=== PATIENT | female | born 1930 | race Caucasian/White ===

== ENCOUNTER 2017-07-21 11:18 | Observation (INO) | payer MEDICARE ==
[~2017-07-21] VITALS: Ht 154.9 cm; Wt 60.0 kg
[~2017-07-21 11:18] MED LIST: ARIC5TAB PO; ATEN50TA PO; BACL10TA PO; LACT10SO47 PO; LISI-515 PO; LOVA20TA PO; NIFE90TA2 PO; TRAM-492 PO
[2017-07-21] MEDS ORDERED: IOHEXOL 350 MG/ML 10 ML VIAL (for RAD DIAG) IVCONTRAST ONE (11:19)
[2017-07-21 11:20] VITALS: BP 140/66; PULSE 77; RESP 18; TEMP 102; O2SAT 94
[2017-07-21] MEDS ORDERED: SODIUM CHLOR 0.9% 1000 ML INJ 1,000 ML IV ONE (11:39)
[2017-07-21] MEDS ORDERED: ACETAMINOPHEN 325 MG TAB PO ONE (11:45)
[2017-07-21] MEDS ORDERED: VITA150T PO (11:57)
[2017-07-21] MEDS ORDERED: TRAZ50TA12 PO (11:57)
[2017-07-21] MEDS ORDERED: DONE5TAB7 PO (11:57)
[2017-07-21] MEDS ORDERED: CALC1TAB PO (11:57)
[2017-07-21] MEDS ORDERED: PRIM50TA5 PO (11:57)
[2017-07-21] MEDS ORDERED: PARO10TA2 PO (11:57)
[2017-07-21] MEDS ORDERED: NIFE30TA61 PO (11:57)
[2017-07-21] MEDS ORDERED: AMOX500C PO (11:57)
[2017-07-21] MEDS ORDERED: CO Q50CA PO (11:57)
[2017-07-21] MEDS ORDERED: OMEP20TA93 PO (11:57)
--- NOTE | 2017-07-21 12:19 | PD ---
HPI Chief Complaint: Fever Time Seen by Provider: 11:31 Travel History International Travel<30 days: No Contact w/Intl Traveler<30days: No Traveled to known affect area: No History of Present Illness HPI 87-year-old female that presents to the ED for evaluation of weakness to her legs. Per patient on Tuesday of this week she had a dental procedure. She states that she had a oral surgeon do an extraction of her tooth. Per patient she was told that she could have an infection. She was given amoxicillin to take before the surgery but she has very any pills left. Per patient she was doing fine after the surgery except that today she developed weakness to her legs and she is barely able to ambulate even with her walker which she normally uses. She has a history of UTIs in the past and states that the last and she had a UTI she had the same symptoms. She feels like he might be related to that. She also states having some chills and sweats as well as she was found to have a fever in triage. She denies any chest pain or shortness of breath. No falls or injuries. No leg pain or arm pain. No abdominal pain. No diarrhea or bowel movement changes. She does have allergies to NSAIDs. She states having some pain in her right ear that comes and goes. She denies any more swelling than usual or her face. She has not been able to contact her or her surgeon told her was going on but she does not know if this is related to the to surgery or to the possible UTI. She has no polyuria or dysuria. She has not taken anything for this patient she has not seen anybody for this. Pain is mild to the right face. PFSH Past Medical History Arthritis: Yes (BENJAMIN. shoulder) Autoimmune Disease: No Blood Disorders: No Cancer: Yes Cardiovascular Problems: Yes High Cholesterol: Yes Diabetes: Yes (PRE-DIABETIC ) Patient Takes Glucophage: No Diminished Hearing: No Endocrine: Yes Gastrointestinal Disorders: No GERD: Yes Genitourinary: No Hypertension: Yes Musculoskeletal: Yes Neurologic: Yes (Tremors) Psychiatric: No Reproductive: No Respiratory: No Radiation Therapy: No Ulcer: Yes Tetanus Vaccination: Unknown Menopausal: Yes : 2 Para: 2 Past Surgical History Gynecologic Surgery: Yes (Hysterectomy 1967) Hysterectomy: Yes (TOTAL) Other Surgery: Yes Social History Alcohol Use: No Tobacco Use: No Substance Use: No Allergies-Medications (Allergen,Severity, Reaction): Coded Allergies: diclofenac (Unverified Allergy, Mild, 07/21/17) RENAL INSUFICENCY etodolac (Unverified Allergy, Mild, 07/21/17) RENAL INSUFICENCY flurbiprofen (Unverified Allergy, Mild, 07/21/17) RENAL INSUFICENCY ibuprofen (Unverified Allergy, Mild, 07/21/17) RENAL INSUFICENCY indomethacin (Unverified Allergy, Mild, 07/21/17) RENAL INSUFICENCY ketoprofen (Unverified Allergy, Mild, 07/21/17) RENAL INSUFICENCY ketorolac (Unverified Allergy, Mild, 07/21/17) RENAL INSUFICENCY naproxen (Unverified Allergy, Mild, 07/21/17) RENAL INSUFICENCY oxaprozin (Unverified Allergy, Mild, 07/21/17) RENAL INSUFICENCY Reported Meds & Prescriptions Reported Meds & Active Scripts Active Reported Amoxicillin 500 Mg Cap 500 Mg PO DIRECTED PRN Omeprazole 20 Mg Tab 20 Mg PO DAILY Trazodone (Trazodone HCl) 50 Mg Tab 25 Mg PO HS Paroxetine (Paroxetine HCl) 10 Mg Tab 10 Mg PO DAILY Primidone 50 Mg Tab 50 Mg PO BID Donepezil 5 Mg Tab 5 Mg PO HS Nifedipine ER 24 HR (Nifedipine) 30 Mg Tab 30 Mg PO DAILY Co Q-10 (Coenzyme Q10 (Ubidecarenone)) 50 Mg-5 Unit Cap Super B Complex (Vitamin B Complex Vit C No.4) 150 Mg Tablet Calcium Citrate Petite/ (Calcium Citrate-Vitamin D) 200-250 Mg-Unit Tab 1 Tab PO BID Tramadol Hydrochloride (Tramadol HCl) 50 Mg Tab 50 Ml PO Q6HR Nifedipine ER (Nifedipine) 90 Mg Tab 40 Mg PO BID Lovastatin 20 Mg Tab 20 Mg PO DAILY Lisinopril 20 Mg Tab 20 Mg PO BID Enulose Liq (Lactulose (Encephalopathy) Liq) 10 Gm/15 Ml Soln 30 Ml PO DAILY PRN Baclofen 10 Mg Tab 10 Mg PO HS PRN Atenolol 50 Mg Tab 50 Mg PO DAILY Review of Systems Except as stated in HPI: all other systems reviewed are Neg Physical Exam Narrative GENERAL: SKIN: Warm and dry. HEAD: Atraumatic. Normocephalic. EYES: Pupils equal and round. No scleral icterus. No injection or drainage. ENT: No nasal bleeding or discharge. Mucous membranes pink and moist. Tongue is midline. No uvula deviation. Dental: has surgical scar in right lower 2nd molar area. Some swelling, but no obvious purulence or mass. TMs are clear bilaterally with no sign of infection of perforation. Ear canal intact bilaterally. NECK: Trachea midline. No JVD. CARDIOVASCULAR: Regular rate and rhythm. No murmurs, S3, S4. RESPIRATORY: No accessory muscle use. Clear to auscultation. Breath sounds equal bilaterally. GASTROINTESTINAL: Abdomen soft, non-tender, nondistended. Hepatic and splenic margins not palpable. MUSCULOSKELETAL: Extremities without clubbing, cyanosis, or edema. No obvious deformities. Full ROM of the upper and lower extremities bilaterally. 2+ pulses bilaterally. Bilateral lower leg extremity weakness especially with flexion of leg and lifting. NEUROLOGICAL: Awake and alert. No obvious cranial nerve deficits. Motor grossly within normal limits. Five out of 5 muscle strength in the arms and legs. Normal speech. PSYCHIATRIC: Appropriate mood and affect; insight and judgment normal. Data Data Last Documented VS Vital Signs Date Time Temp Pulse Resp B/P (MAP) Pulse Ox O2 Delivery O2 Flow Rate FiO2 07/21/17 13:06 68 18 115/58 (77) 96 Room Air 07/21/17 11:20 102.0 Orders Orders Acetaminophen (Tylenol) (07/21/17 11:45) Sepsis Workup Initiated (07/21/17 ) Complete Blood Count With Diff (07/21/17 11:39) Comprehensive Metabolic Panel (07/21/17 11:39) Lactic Acid Sepsis Protocol (07/21/17 11:39) Magnesium (Mg) (07/21/17 11:39) Lipase (07/21/17 11:39) Urinalysis - C+S If Indicated (07/21/17 11:39) Influenzae A/B Antigen (07/21/17 11:39) Blood Culture (07/21/17 11:39) Chest, Single Ap (07/21/17 11:39) Ecg Monitoring (07/21/17 11:39) Iv Access Insert/Monitor (07/21/17 11:39) Oximetry (07/21/17 11:39) Sodium Chlor 0.9% 1000 Ml Inj (Ns 1000 M (07/21/17 11:39) Ct Facial Bones W Iv Contrast (07/21/17 ) Cath For Specimen (07/21/17 11:45) Iohexol 350 Inj (Omnipaque 350 Inj) (07/21/17 11:19) Piperacil-Tazo 3.375 Gm Premix (Zosyn 3. (07/21/17 14:15) Admit Order (Ed Use Only) (07/21/17 14:48) Labs Laboratory Tests Test 07/21/17 12:20 White Blood Count 13.1 TH/MM3 Red Blood Count 3.37 MIL/MM3 Hemoglobin 10.8 GM/DL Hematocrit 31.9 % Mean Corpuscular Volume 94.7 FL Mean Corpuscular Hemoglobin 32.1 PG Mean Corpuscular Hemoglobin Concent 33.9 % Red Cell Distribution Width 13.9 % Platelet Count 138 TH/MM3 Mean Platelet Volume 8.5 FL Neutrophils (%) (Auto) 92.6 % Lymphocytes (%) (Auto) 2.8 % Monocytes (%) (Auto) 4.5 % Eosinophils (%) (Auto) 0.0 % Basophils (%) (Auto) 0.1 % Neutrophils # (Auto) 12.1 TH/MM3 Lymphocytes # (Auto) 0.4 TH/MM3 Monocytes # (Auto) 0.6 TH/MM3 Eosinophils # (Auto) 0.0 TH/MM3 Basophils # (Auto) 0.0 TH/MM3 CBC Comment DIFF FINAL Differential Comment Urine Color YELLOW Urine Turbidity CLEAR Urine pH 6.0 Urine Specific [place] 1.022 Urine Protein TRACE mg/dL Urine Glucose (UA) NEG mg/dL Urine Ketones NEG mg/dL Urine Occult Blood NEG Urine Nitrite NEG Urine Bilirubin NEG Urine Urobilinogen LESS THAN 2.0 MG/DL Urine Leukocyte Esterase NEG Urine RBC 2 /hpf Urine WBC LESS THAN 1 /hpf Urine Squamous Epithelial Cells <1 /hpf Microscopic Urinalysis Comment CATH-CULT NOT IND Blood Urea Nitrogen 42 MG/DL Creatinine 1.21 MG/DL Random Glucose 217 MG/DL Total Protein 6.6 GM/DL Albumin 3.0 GM/DL Calcium Level 8.3 MG/DL Magnesium Level 2.4 MG/DL Alkaline Phosphatase 79 U/L Aspartate Amino Transf (AST/SGOT) 13 U/L Alanine Aminotransferase (ALT/SGPT) 12 U/L Total Bilirubin 0.3 MG/DL Sodium Level 135 MEQ/L Potassium Level 4.3 MEQ/L Chloride Level 102 MEQ/L Carbon Dioxide Level 25.9 MEQ/L Anion Gap 7 MEQ/L Estimat Glomerular Filtration Rate 42 ML/MIN Lactic Acid Level 1.6 mmol/L Lipase 121 U/L MDM Medical Decision Making Medical Screen Exam Complete: Yes Emergency Medical Condition: Yes Medical Record Reviewed: Yes Interpretation(s) CBC & BMP Diagram 07/21/17 12:20 Total Protein 6.6, Albumin 3.0 L, Calcium Level 8.3 L, Magnesium Level 2.4, Alkaline Phosphatase 79, Aspartate Amino Transf (AST/SGOT) 13 L, Alanine Aminotransferase (ALT/SGPT) 12, Total Bilirubin 0.3 lactic acid WNL Last Impressions Chest X-Ray 07/21/17 1139 Signed Impressions: Service Date/Time: June 12:32 - CONCLUSION: The lungs are clear. Konrad Smith MD Maxillofacial CT 07/21/17 0000 Signed Impressions: Service Date/Time: June 13:41 - CONCLUSION: Subcutaneous air involving the right cheek and right temporal region consistent with the postoperative nature of this patient. No fluid collection or inflammatory/infectious abnormality. Konrad Velazquez Jr., MD UA negative Differential Diagnosis Sepsis versus weakness versus cystitis versus UTI versus acute kidney injury versus femur versus postsurgical complication Narrative Course 87-year-old female that presents to the ED for evaluation of fever and weakness. Patient was properly examined and was found to have signs and symptoms of unclear etiology but likely secondary to infection. Labs and imaging were ordered. Patient was given Tylenol for her fever 102. She is not tachycardic at this time and she appears to be in no distress. She is however weak on the lower legs especially with flexion of the hips. She states that she 's had UTIs with same symptoms in the past symptoms concerning for the same. We 'll check urine and blood work. Patient was given 500 bolus of fluid. She will be reassessed. Labs and imaging showed leukocytosis whether was unremarkable. Un unclear cause of the infection. Patient still weak to her lower legs. Case discussed with attending Dr Pino who agrees [facility] [place] admission. patient to be admitted for obs for infection. unclear etiology. Dr Ibrahim agrees with plan. Sepsis Criteria SIRS Criteria (2 or more): Temp > 100.9 or < 96.8, WBC > 65826, < 4000 or > 10 % bands Sepsis Criteria (SIRS+source): Infect source susp/known Diagnosis Primary Impression: Generalized weakness Additional Impressions: LENA (acute kidney injury) Dental infection Admitting Information Admitting Physician Requests: Observation Isidro Casas Jul 21, 2017 12:18
[2017-07-21 12:46] LABS: AUTOMATED NEUTROPHIL # 12.1 TH/MM3 (1.8-7.7); BASOPHIL % 0.1 % (0.0-2.0); HEMATOCRIT 31.9 % (35.0-46.0); HEMOGLOBIN 10.8 GM/DL (11.6-15.3); LYMPH % 2.8 % (9.0-44.0); LYMPHOCYTE # 0.4 TH/MM3 (1.0-4.8); MEAN CELL VOLUME 94.7 FL (80.0-100.0); MEAN CORPUSCULAR HEMOGLOBIN 32.1 PG (27.0-34.0); MEAN CORPUSCULAR HGB CONC 33.9 % (32.0-36.0); MEAN PLATELET VOLUME 8.5 FL (7.0-11.0); MONO % 4.5 % (0.0-8.0); MONOCYTE # 0.6 TH/MM3 (0-0.9); NEUT % 92.6 % (16.0-70.0); PLATELET COUNT 138 TH/MM3 (150-450); RED BLOOD COUNT 3.37 MIL/MM3 (4.00-5.30); RED CELL DISTRIBUTION WIDTH 13.9 % (11.6-17.2); WHITE BLOOD COUNT 13.1 TH/MM3 (4.0-11.0)
[2017-07-21 12:49] LABS: BILIRUBIN, URINE NEG (NEG); BLOOD, URINE NEG (NEG); GLUCOSE,URINE NEG (NEG); KETONE, URINE NEG (NEG); NITRITE,URINE NEG (NEG); SQUAMOUS EPITHELIAL CELL URINE <1 /hpf (0-5); URINE COLOR YELLOW (YELLW/STRAW); URINE LEUKOCYTE ESTERASE NEG (NEG)
[2017-07-21 13:00] LABS: AST (GOT) 13 U/L (15-37); BICARBONATE 25.9 MEQ/L (21.0-32.0); BLOOD UREA NITROGEN 42 MG/DL (7-18); CALCIUM 8.3 MG/DL (8.5-10.1); CHLORIDE 102 MEQ/L (98-107); CREATININE 1.21 MG/DL (0.50-1.00); GLOMERULAR FILTRATION RATE 42 ML/MIN (>89); GLUCOSE,RANDOM 217 MG/DL (74-106); MAGNESIUM 2.4 MG/DL (1.5-2.5); SODIUM (NA) 135 MEQ/L (136-145)
[2017-07-21 13:01] LABS: ALT (GPT) 12 U/L (10-53)
[2017-07-21 13:03] LABS: ALKALINE PHOSPHATASE 79 U/L (45-117); TOTAL BILIRUBIN ADULT 0.3 MG/DL (0.2-1.0); TOTAL PROTEIN 6.6 GM/DL (6.4-8.2)
[2017-07-21 13:06] VITALS: BP 115/58; PULSE 68; RESP 18; O2SAT 96
--- NOTE | 2017-07-21 13:12 | RADRPT ---
EXAM DATE/TIME: 07/21/2017 12:32 [facility] COMPARISON: CHEST SINGLE AP, February 13, 2016, 15:55. INDICATIONS : Fever and general weakness since last night, short of breath MEDICAL HISTORY : None. SURGICAL HISTORY : bilateral knee replacements ENCOUNTER: Initial ACUITY: 1 day PAIN SCORE: 0/10 LOCATION: Bilateral chest FINDINGS: A single view of the chest demonstrates the lungs to be symmetrically aerated without evidence of mas s, infiltrate or effusion. The cardiomediastinal contours are unremarkable. Stable deformity of nazanin ateral proximal humerus.. CONCLUSION: The lungs are clear. Konrad Smith MD on July 21, 2017 at 13:10 Board Certified Radiologist. This report was verified electronically.
[2017-07-21] MEDS ORDERED: PIPERACIL-TAZO 3.375 GM PREMIX 50 ML IV ONE (14:15)
--- NOTE | 2017-07-21 14:29 | RADRPT ---
EXAM DATE/TIME: 07/21/2017 13:41 [facility] COMPARISON: No previous studies available for comparison. INDICATIONS : Generalized weakness, ,patient had right side oral surgery two days ago. IV CONTRAST: 67 cc Omnipaque 350 (iohexol) IV RADIATION DOSE: 41.13 CTDIvol (mGy) MEDICAL HISTORY : Cardiovascular disease. SURGICAL HISTORY : None. ENCOUNTER: Initial ACUITY: 2 weeks PAIN SCALE: 7/10 LOCATION: facial TECHNIQUE: Volumetric scanning of the facial bones was performed. Using automated exposure control and adjustme nt of the mA and/or kV according to patient size, radiation dose was kept as low as reasonably achiev able to obtain optimal diagnostic quality images. DICOM format image data is available electronicall y for review and comparison. FINDINGS: ORBITS: The orbital and infraorbital osseous structures are intact. The retroconal structures have a normal configuration. No radiopaque foreign bodies are seen. NASAL BONE: The nasal bone and maxillary spine are intact ZYGOMATIC ARCHES: Symmetric without evidence of fracture. SINUSES: The maxillary, ethmoid and frontal sinuses are intact. No air-fluid levels seen. NASAL CAVITY: The nasal septum is intact and midline. The lacrimal ducts are intact. SOFT TISSUES: Small volume subcutaneous air is seen involving the right cheek extending cephalad in the right tempo ral soft tissues and to a lesser degree infratemporal fossa. This consistent with a prior surgery. No fluid collection. No radiopaque foreign bodies seen. No soft-tissue swelling is seen. INTRACRANIAL: No intracranial air seen. CRIBIFORM PLATE: Grossly intact. CONCLUSION: Subcutaneous air involving the right cheek and right temporal region consistent with the postoperativ e nature of this patient. No fluid collection or inflammatory/infectious abnormality. Konrad Velazquez Jr., MD on July 21, 2017 at 14:23 Board Certified Radiologist. This report was verified electronically.
--- NOTE | 2017-07-21 15:06 | HHI.HP ---
HPI Service [facility] Hospitalists Primary Care Physician Vernon Martinez MD Admission Diagnosis Fever, generalized weakness Chief Complaint: Weakness Travel History International Travel<30 Days: No Contact w/Intl Traveler <30 Da: No Traveled to Known Affected Are: No History of Present Illness Ms. Hernández is an 87 y/o female with HTN, hyperlipidemia, diabetes, CKD, stage 3, and memory loss who was brought to the ER at [facility] [place] on 07/21/17 with increased weakness x 1 day and fever. Pt had oral surgery Tuesday and was told that she had an infected tooth that was removed. Pt was placed on Amoxicillin after that procedure and reported that overall she felt fine after the procedure and yesterday. She did not have any residual pain in her jaw. During the night last night she felt weak when she woke up to use the bathroom. She was afraid to walk to the bathroom because her legs felt too weak so her son helped her to the bathroom using her walker. She reports that she felt chilled during the night and she has tremors normally and it seemed worse than her baseline tremors. Then this morning the pt was unable to get out of bed herself due to weakness. Her son and the acute care nurse had to wheel her to the bathroom on her walker. Her son called her PCP, Dr. Martinez, who reportedly recommended that she go to the ED for further evaluation. Pt was noted to have a fever of 102 degrees at admission. She denies any nausea/vomiting, abd pain, diarrhea, rash, dysuria, urinary frequency. Review of Systems Constitutional: COMPLAINS OF: Fever, Chills, DENIES: Fatigue, Dizziness Eyes: DENIES: Vision loss Ears, nose, mouth, throat: DENIES: Hearing loss Respiratory: DENIES: Cough, Shortness of breath Cardiovascular: DENIES: Chest pain, Palpitations, Dyspnea on Exertion, Lower Extremity Edema Gastrointestinal: DENIES: Abdominal pain, Constipation, Diarrhea, Nausea, Vomiting Genitourinary: DENIES: Urinary frequency, Urgency, Dysuria Musculoskeletal: DENIES: Joint pain, Neck pain Integumentary: DENIES: Rash Neurologic: COMPLAINS OF: Localized weakness, Poor Balance, DENIES: Headache, Paresthesias, Speech Problems Psychiatric: DENIES: Depression, Hallucinations Past Family Social History Past Medical History HTN Hyperlipidemia Diabetes mellitus, with polyneuropathy Carpal tunnel syndrome RLS CKD, stage 3 Osteoarthritis Spastic hemiplegia/Tremors Major depression Memory loss Past Surgical History Total Hysterectomy Back surgery Bunionectomy Bilateral cataract surgery 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 Sinus surgery Tonsillectomy/Adenoidectomy Total knee arthroplasty, bilateral Reported Medications -Amoxicillin 500 Mg Cap 500 Mg PO DIRECTED PRN -Omeprazole 20 Mg Tab 20 Mg PO DAILY PRN -Paroxetine 10 Mg PO DAILY -Primidone 50 Mg PO BID -Donepezil 5 Mg Tab 5 Mg PO HS -Nifedipine ER 24 HR 30 Mg PO BID -Lovastatin 20 Mg PO DAILY -Lisinopril 20 Mg PO DAILY -Atenolol 50 Mg PO DAILY Co Q-10 (Coenzyme Q10 (Ubidecarenone)) 50 Mg-5 Unit Cap Super B Complex (Vitamin B Complex Vit C No.4) 150 Mg Tablet Calcium Citrate Petite/ (Calcium Citrate-Vitamin D) 200-250 Mg-Unit Tab 1 Tab PO BID Allergies: Coded Allergies: diclofenac (Unverified Allergy, Mild, 07/21/17) RENAL INSUFICENCY etodolac (Unverified Allergy, Mild, 07/21/17) RENAL INSUFICENCY flurbiprofen (Unverified Allergy, Mild, 07/21/17) RENAL INSUFICENCY ibuprofen (Unverified Allergy, Mild, 07/21/17) RENAL INSUFICENCY indomethacin (Unverified Allergy, Mild, 07/21/17) RENAL INSUFICENCY ketoprofen (Unverified Allergy, Mild, 07/21/17) RENAL INSUFICENCY ketorolac (Unverified Allergy, Mild, 07/21/17) RENAL INSUFICENCY naproxen (Unverified Allergy, Mild, 07/21/17) RENAL INSUFICENCY oxaprozin (Unverified Allergy, Mild, 07/21/17) RENAL INSUFICENCY Family History Noncontributory Social History Denies any alcohol, tobacco or illicit drug use Physical Exam Vital Signs Vital Signs Date Time Temp Pulse Resp B/P (MAP) Pulse Ox O2 Delivery O2 Flow Rate FiO2 07/21/17 13:06 68 18 115/58 (77) 96 Room Air 07/21/17 11:49 18 Room Air 07/21/17 11:20 102.0 77 18 140/66 (90) 94 Physical Exam GENERAL: This is a well-nourished, well-developed patient, in no apparent distress. SKIN: No rashes, ecchymoses or lesions. Cool and dry. HEENT: Atraumatic. Normocephalic. No temporal or scalp tenderness. No scleral icterus. Small blood clot where tooth was extracted on the bottom right jaw. Airway patent. Mild tenderness to palpation over the right jaw NECK: Trachea midline, supple, nontender. CARDIO: Regular. RESP: CTA bilaterally. No wheezes, rales, or rhonchi. ABD: +BS, soft, non-tender, nondistended. EXT: Extremities without clubbing, cyanosis, or edema. NEURO: Awake and alert. Motor and sensory grossly within normal limits. Normal speech. Laboratory Laboratory Tests Test 07/21/17 12:20 White Blood Count 13.1 Red Blood Count 3.37 Hemoglobin 10.8 Hematocrit 31.9 Mean Corpuscular Volume 94.7 Mean Corpuscular Hemoglobin 32.1 Mean Corpuscular Hemoglobin Concent 33.9 Red Cell Distribution Width 13.9 Platelet Count 138 Mean Platelet Volume 8.5 Neutrophils (%) (Auto) 92.6 Lymphocytes (%) (Auto) 2.8 Monocytes (%) (Auto) 4.5 Eosinophils (%) (Auto) 0.0 Basophils (%) (Auto) 0.1 Neutrophils # (Auto) 12.1 Lymphocytes # (Auto) 0.4 Monocytes # (Auto) 0.6 Eosinophils # (Auto) 0.0 Basophils # (Auto) 0.0 CBC Comment DIFF FINAL Differential Comment Urine Color YELLOW Urine Turbidity CLEAR Urine pH 6.0 Urine Specific [place] 1.022 Urine Protein TRACE Urine Glucose (UA) NEG Urine Ketones NEG Urine Occult Blood NEG Urine Nitrite NEG Urine Bilirubin NEG Urine Urobilinogen LESS THAN 2.0 Urine Leukocyte Esterase NEG Urine RBC 2 Urine WBC LESS THAN 1 Urine Squamous Epithelial Cells <1 Microscopic Urinalysis Comment CATH-CULT NOT IND Blood Urea Nitrogen 42 Creatinine 1.21 Random Glucose 217 Total Protein 6.6 Albumin 3.0 Calcium Level 8.3 Magnesium Level 2.4 Alkaline Phosphatase 79 Aspartate Amino Transf (AST/SGOT) 13 Alanine Aminotransferase (ALT/SGPT) 12 Total Bilirubin 0.3 Sodium Level 135 Potassium Level 4.3 Chloride Level 102 Carbon Dioxide Level 25.9 Anion Gap 7 Estimat Glomerular Filtration Rate 42 Lactic Acid Level 1.6 Lipase 121 Date/Time Source Procedure Growth Status 07/21/17 12:25 Blood Peripheral Aerobic Blood Culture Pending Received 07/21/17 12:25 Blood Peripheral Anaerobic Blood Culture Pending Received 07/21/17 12:00 Nasal Washing Influenza Types A,B Antigen (FACUNDO) - Final NEGATIVE FOR FLU A AND B ANTIGEN.... Complete Result Diagram: 07/21/17 1220 07/21/17 1220 Imaging Last Impressions Chest X-Ray 07/21/17 1139 Signed Impressions: Service Date/Time: June 12:32 - CONCLUSION: The lungs are clear. Konrad Smith MD Maxillofacial CT 07/21/17 0000 Signed Impressions: Service Date/Time: June 13:41 - CONCLUSION: Subcutaneous air involving the right cheek and right temporal region consistent with the postoperative nature of this patient. No fluid collection or inflammatory/infectious abnormality. MD Abelino Brizuela Jr. VTE Risk Assessment Caprini VTE Risk Assessment: Mod/High Risk (score >= 2) Caprini Risk Assessment Model Point Value = 1 Point Value = 2 Point Value = 3 Point Value = 5 Age 41-60 Minor surgery BMI > 25 kg/m2 Swollen legs Varicose veins or History of unexplained or recurrent spontaneous Oral contraceptives or hormone replacement Sepsis (< 1 month) Serious lung disease, including pneumonia (< 1 month) Abnormal pulmonary function Acute myocardial infarction Congestive heart failure (< 1 month) History of inflammatory bowel disease Medical patient at bed rest Age 61-74 Arthroscopic surgery Major open surgery (> 45 min) Laparoscopic surgery (> 45 min) Malignancy Confined to bed (> 72 hours) Immobilizing plaster cast Central venous access Age >= 75 History of VTE Family history of VTE Factor V Leiden Prothrombin [id number] Lupus anticoagulant Anticardiolipin antibodies Elevated serum homocysteine Heparin-induced thrombocytopenia Other congenital or acquired thrombophilia Stroke (< 1 month) Elective arthroplasty Hip, pelvis, or leg fracture Acute spinal cord injury (< 1 month) Prophylaxis Regimen Total Risk Factor Score Risk Level Prophylaxis Regimen 0-1 Low Early ambulation 2 Moderate Order ONE of the following: *Sequential Compression Device (SCD) *Heparin 5000 units SQ BID 3-4 Higher Order ONE of the following medications: *Heparin 5000 units SQ TID *Enoxaparin/Lovenox 40 mg SQ daily (WT < 150 kg, CrCl > 30 mL/min) *Enoxaparin/Lovenox 30 mg SQ daily (WT < 150 kg, CrCl > 10-29 mL/min) *Enoxaparin/Lovenox 30 mg SQ BID (WT < 150 kg, CrCl > 30 mL/min) AND/OR *Sequential Compression Device (SCD) 5 or more Highest Order ONE of the following medications: *Heparin 5000 units SQ TID (Preferred with Epidurals) *Enoxaparin/Lovenox 40 mg SQ daily (WT < 150 kg, CrCl > 30 mL/min) *Enoxaparin/Lovenox 30 mg SQ daily (WT < 150 kg, CrCl > 10-29 mL/min) *Enoxaparin/Lovenox 30 mg SQ BID (WT < 150 kg, CrCl > 30 mL/min) AND *Sequential Compression Device (SCD) Assessment and Plan Problem List: (1) Generalized weakness ICD Codes: R53.1 - Weakness Status: Acute Plan: Generalized weakness Fevers Leukocytosis - Pt 87 y/o female with HTN, hyperlipidemia, diabetes, CKD, stage 3, and memory loss who was brought to the ER at [facility] [place] on 07/21/17 with increased weakness x 1 day and fever. - Pt had oral surgery Tuesday and was told that she had an infected tooth that was removed. Pt was placed on Amoxicillin after that procedure - During the night last night she developed increased generalized weakness and chills. - Pt was noted to have a fever of 102 degrees at admission. - Blood cultures were drawn in the ED - Pt tested negative for Influenza - CXR was negative - Maxillofacial CT --> Subcutaneous air involving the right cheek and right temporal region consistent with the postoperative nature of this patient. No fluid collection or inflammatory/infectious abnormality. - Pt was given a dose of Zosyn in the ED and this will be continued - Monitor vitals and clinical status closely - The etiology for her symptoms is unclear. - Supportive care - Further recommendations as the case develops HTN - Home meds reviewed and continued with hold parameters Hyperglycemia - Check Hgb A1C - NovoLog SSI - Accu checks Tremor - Home meds continued (2) Fever ICD Codes: R50.9 - Fever, unspecified Status: Acute (3) HTN (hypertension) ICD Codes: I10 - Essential (primary) hypertension Status: Chronic (4) Tremor ICD Codes: R25.1 - Tremor Status: Chronic (5) Diabetes mellitus ICD Codes: E11.9 - Type 2 diabetes mellitus without complications Status: Chronic Tricia Mcallister Jul 21, 2017 15:05
[2017-07-21] MEDS ORDERED: LACTULOSE SYRUP 20 GM/30 ML CUP PO ONE (15:15)
[2017-07-21] MEDS ORDERED: LACTULOSE SYRUP 20 GM/30 ML CUP PO PRN (15:15)
[2017-07-21 15:17] VITALS: BP 152/68; PULSE 72; RESP 18; TEMP 98.1; O2SAT 98
[2017-07-21] MEDS ORDERED: GLUCAGON 1 MG/ML VIAL OTHER PRN (15:30)
[2017-07-21] MEDS ORDERED: PILL SPLITTER OTHER PRN (15:30)
[2017-07-21] MEDS ORDERED: DEXTROSE 50% IN WATER 50 ML VIAL(D50) IV PUSH PRN (15:30)
[2017-07-21 16:20] VITALS: BP 152/68
[2017-07-21 16:39] VITALS: BP 162/69; PULSE 74; RESP 18; TEMP 97.9; O2SAT 94
[2017-07-21] MEDS: INSULIN ASPART SUPPLEMENTAL SCALE SQ SCH ×2 (17:00→20:50)
[2017-07-21] MEDS ORDERED: ACETAMINOPHEN 325 MG TAB PO PRN (20:15)
[2017-07-21 20:33] VITALS: BP 147/74; PULSE 79; RESP 18; TEMP 98.1; O2SAT 98
[2017-07-21] MEDS: PRIMIDONE 50 MG TAB PO SCH (20:50)
[2017-07-21] MEDS: PIPERACIL-TAZO 3.375 GM PREMIX 50 ML IV SCH (20:50)
[2017-07-21] MEDS: DOCUSATE SODIUM 100 MG CAP PO SCH (20:50)
[2017-07-21] MEDS: NIFEdipine 30 MG SUSTAINED RELEASE TAB PO SCH (20:50)
[2017-07-21] MEDS ORDERED: DONEPEZIL HCL 5 MG TAB PO SCH (21:00)
[2017-07-22 00:20] VITALS: BP 127/54; PULSE 81; RESP 18; TEMP 98; O2SAT 97
[2017-07-22] MEDS: PIPERACIL-TAZO 3.375 GM PREMIX 50 ML IV SCH ×2 (03:00→08:58)
[2017-07-22 03:58] VITALS: BP 142/80; PULSE 86; RESP 18; TEMP 98; O2SAT 98
[2017-07-22] MEDS: INSULIN ASPART SUPPLEMENTAL SCALE SQ SCH ×2 (08:00→12:00)
--- NOTE | 2017-07-22 08:18 | HHI.PR ---
Subjective Remarks Pt has not had any fevers since admission. She complains of a slight sore throat She notes some chest "congestion/heaviness" this morning but denies much of any cough No sinus congestion reported Pt was placed on supplemental O2 this morning but its not documented how low her O2 sats went to require supplemental O2 Objective Vitals Vital Signs Date Time Temp Pulse Resp B/P (MAP) Pulse Ox O2 Delivery O2 Flow Rate FiO2 07/22/17 03:58 98.0 86 18 142/80 (100) 98 07/22/17 02:59 18 07/22/17 00:20 98.0 81 18 127/54 (78) 97 07/21/17 20:33 98.1 79 18 147/74 (98) 98 07/21/17 16:39 97.9 74 18 162/69 (100) 94 07/21/17 16:39 97.9 74 18 162/69 (100) 94 07/21/17 16:20 61 152/68 (96) 07/21/17 15:17 98.1 72 18 152/68 (96) 98 Room Air 07/21/17 13:06 68 18 115/58 (77) 96 Room Air 07/21/17 11:49 18 Room Air 07/21/17 11:20 102.0 77 18 140/66 (90) 94 Result Diagram: 07/21/17 1220 07/21/17 1220 Other Results Laboratory Tests Test 07/21/17 12:20 White Blood Count 13.1 TH/MM3 Red Blood Count 3.37 MIL/MM3 Hemoglobin 10.8 GM/DL Hematocrit 31.9 % Mean Corpuscular Volume 94.7 FL Mean Corpuscular Hemoglobin 32.1 PG Mean Corpuscular Hemoglobin Concent 33.9 % Red Cell Distribution Width 13.9 % Platelet Count 138 TH/MM3 Mean Platelet Volume 8.5 FL Neutrophils (%) (Auto) 92.6 % Lymphocytes (%) (Auto) 2.8 % Monocytes (%) (Auto) 4.5 % Eosinophils (%) (Auto) 0.0 % Basophils (%) (Auto) 0.1 % Neutrophils # (Auto) 12.1 TH/MM3 Lymphocytes # (Auto) 0.4 TH/MM3 Monocytes # (Auto) 0.6 TH/MM3 Eosinophils # (Auto) 0.0 TH/MM3 Basophils # (Auto) 0.0 TH/MM3 CBC Comment DIFF FINAL Differential Comment Urine Color YELLOW Urine Turbidity CLEAR Urine pH 6.0 Urine Specific [place] 1.022 Urine Protein TRACE mg/dL Urine Glucose (UA) NEG mg/dL Urine Ketones NEG mg/dL Urine Occult Blood NEG Urine Nitrite NEG Urine Bilirubin NEG Urine Urobilinogen LESS THAN 2.0 MG/DL Urine Leukocyte Esterase NEG Urine RBC 2 /hpf Urine WBC LESS THAN 1 /hpf Urine Squamous Epithelial Cells <1 /hpf Microscopic Urinalysis Comment CATH-CULT NOT IND Blood Urea Nitrogen 42 MG/DL Creatinine 1.21 MG/DL Random Glucose 217 MG/DL Total Protein 6.6 GM/DL Albumin 3.0 GM/DL Calcium Level 8.3 MG/DL Magnesium Level 2.4 MG/DL Alkaline Phosphatase 79 U/L Aspartate Amino Transf (AST/SGOT) 13 U/L Alanine Aminotransferase (ALT/SGPT) 12 U/L Total Bilirubin 0.3 MG/DL Sodium Level 135 MEQ/L Potassium Level 4.3 MEQ/L Chloride Level 102 MEQ/L Carbon Dioxide Level 25.9 MEQ/L Anion Gap 7 MEQ/L Estimat Glomerular Filtration Rate 42 ML/MIN Lactic Acid Level 1.6 mmol/L Lipase 121 U/L Imaging Last Impressions Chest X-Ray 07/21/17 1139 Signed Impressions: Service Date/Time: June 12:32 - CONCLUSION: The lungs are clear. Konrad Smith MD Maxillofacial CT 07/21/17 0000 Signed Impressions: Service Date/Time: June 13:41 - CONCLUSION: Subcutaneous air involving the right cheek and right temporal region consistent with the postoperative nature of this patient. No fluid collection or inflammatory/infectious abnormality. Konrad Velazquez Jr., MD Objective Remarks General: NAD, AAOx3 Chest: CTA Cardiac: Regular Abd: +BS, soft ND/NT Ext: No edema A/P Problem List: (1) Generalized weakness ICD Codes: R53.1 - Weakness Status: Acute Plan: Generalized weakness Fevers Leukocytosis - Pt 87 y/o female with HTN, hyperlipidemia, diabetes, CKD, stage 3, and memory loss who was brought to the ER at [facility] [place] on 07/21/17 with increased weakness x 1 day and fever. - Pt had oral surgery Tuesday and was told that she had an infected tooth that was removed. Pt was placed on Amoxicillin after that procedure - During the night last night she developed increased generalized weakness and chills. - Pt was noted to have a fever of 102 degrees at admission. - Blood cultures were drawn in the ED - Pt tested negative for Influenza - CXR was negative - Maxillofacial CT --> Subcutaneous air involving the right cheek and right temporal region consistent with the postoperative nature of this patient. No fluid collection or inflammatory/infectious abnormality. - Pt was given a dose of Zosyn in the ED and this will be continued - The etiology for her symptoms is unclear, possibly secondary to her dental infection vs. viral illness vs. other - This morning pt complains of some sore throat and chest "congestion/ heaviness" and thinks she may be getting a cold - Pt has been afebrile since admission - Repeat labs this morning are pending. - Chloraseptic spray PRN - PT evaluation this morning. - Supportive care - Discussed with the pt and her son, continued monitoring in the hospital to monitor her fever curve and her blood cultures but the pt insists on going home today. - We will arrange for HHC/PT. - Pt will be discharged on Augmentin 500mg po TID x 7 days. - She is to followup with her PCP, Dr. Martinez, in 1 week, call for an appt. HTN - Home meds reviewed and continued with hold parameters Hyperglycemia - Check Hgb A1C - NovoLog SSI - Accu checks Tremor - Home meds continued (2) Fever ICD Codes: R50.9 - Fever, unspecified Status: Acute (3) HTN (hypertension) ICD Codes: I10 - Essential (primary) hypertension Status: Chronic (4) Tremor ICD Codes: R25.1 - Tremor Status: Chronic (5) Diabetes mellitus ICD Codes: E11.9 - Type 2 diabetes mellitus without complications Status: Chronic Assessment and Plan Patient examined. Assessment and plan formulated with Tricia Mcallister PA-C. I agree with the above. dental infection. was on amoxacillin. blood cx ngtd. no fever x 24hrs. I offered to observe her until tomorrow. she is refusing and son will take her home if she can walk out to nursing station and back with walker.. will place dc orders and a script for augmentin. she was on zosyn here. bg mildly elevated as she reports this is common with infections for her. f/u pcp. Problem Qualifiers (1) Fever: Qualified Codes: R50.9 - Fever, unspecified Tricia Mcallister Jul 22, 2017 08:18 Deangelo Mahan MD Jul 22, 2017 13:37
[2017-07-22 08:32] VITALS: BP 146/70; PULSE 72; RESP 20; TEMP 98.2; O2SAT 95
[2017-07-22] MEDS: NIFEdipine 30 MG SUSTAINED RELEASE TAB PO SCH (08:57)
[2017-07-22] MEDS: PRIMIDONE 50 MG TAB PO SCH (08:57)
[2017-07-22] MEDS: DOCUSATE SODIUM 100 MG CAP PO SCH (08:58)
[2017-07-22] MEDS ORDERED: ATENOLOL 50 MG TAB PO SCH (09:00)
[2017-07-22] MEDS ORDERED: PARoxetine HCL 20 MG TAB PO SCH (09:00)
[2017-07-22] MEDS ORDERED: PHENOL 1.4% SOLN 180 ML BTL OROPHARYNG ONE (09:00)
[2017-07-22] MEDS ORDERED: LISINOPRIL 20 MG TAB PO SCH (09:00)
[2017-07-22] MEDS ORDERED: PRAVASTATIN SOD 20 MG TAB PO SCH (09:00)
[2017-07-22] MEDS ORDERED: PANTOPRAZOLE SOD 20 MG DELAYED RELEASE TAB PO SCH (09:00)
[2017-07-22] MEDS ORDERED: PHENOL 1.4% SOLN 180 ML BTL OROPHARYNG PRN (09:00)
[2017-07-22 11:01] LABS: BASOPHIL % 0.3 % (0.0-2.0); EOSINOPHIL % 0.1 % (0.0-4.0); HEMATOCRIT 30.3 % (35.0-46.0); HEMOGLOBIN 10.1 GM/DL (11.6-15.3); LYMPH % 2.9 % (9.0-44.0); LYMPHOCYTE # 0.4 TH/MM3 (1.0-4.8); MEAN CELL VOLUME 95.6 FL (80.0-100.0); MEAN CORPUSCULAR HEMOGLOBIN 31.9 PG (27.0-34.0); MEAN CORPUSCULAR HGB CONC 33.4 % (32.0-36.0); MEAN PLATELET VOLUME 9.2 FL (7.0-11.0); MONO % 4.8 % (0.0-8.0); MONOCYTE # 0.6 TH/MM3 (0-0.9); NEUT % 91.9 % (16.0-70.0); PLATELET COUNT 126 TH/MM3 (150-450); RED BLOOD COUNT 3.17 MIL/MM3 (4.00-5.30); RED CELL DISTRIBUTION WIDTH 14.2 % (11.6-17.2)
[2017-07-22 11:30] VITALS: BP 132/60; PULSE 70; RESP 20; TEMP 98.2; O2SAT 97
[2017-07-22 11:36] LABS: CALCIUM 7.7 MG/DL (8.5-10.1); CREATININE 1.48 MG/DL (0.50-1.00)
[2017-07-22] MEDS ORDERED: AUGM500T7 PO (13:05)
--- NOTE | 2017-07-22 13:06 | HHI.FF ---
Face to Face Verification Diagnosis: (1) Fever (2) Generalized weakness (3) Dental infection (4) Diabetes mellitus (5) HTN (hypertension) Physical Therapy Order: Evaluate and Treat, Improve ambulation, Strength and gait training Home Health Nursing Order: Diabetic education Nursing assessment with vital signs I have seen patient Talita Hernández on 07/22/17. My clinical findings support the need for the requested home health care services because: Deconditioned w/ increased weakness High risk of falls I certify that my clinical findings support that this patient is homebound because: Unsteady gait/balance Tricia Mcallister Jul 22, 2017 13:06
== END 2017-07-22 14:54 | disposition home or self-care (01) ==
LOC: NEPE 11:18 → NEDA 14:50 → NEPGCP 16:37
PROVIDERS: ADMIT Hospitalist; ATTEND Hospitalist
DX: R53.1 Weakness (principal); R06.02 Shortness of breath; D72.829 Elevated white blood cell count, unspecified; J02.9 Acute pharyngitis, unspecified; R09.89 Other specified symptoms and signs involving the circulatory and respiratory systems; R50.9 Fever, unspecified; R25.1 Tremor, unspecified; I12.9 Hypertensive chronic kidney disease with stage 1 through stage 4 chronic kidney disease, or unspecified chronic kidney disease; E11.22 Type 2 diabetes mellitus with diabetic chronic kidney disease; N18.3 Chronic kidney disease, stage 3 (moderate); E78.00 Pure hypercholesterolemia, unspecified; K21.9 Gastro-esophageal reflux disease without esophagitis; E11.65 Type 2 diabetes mellitus with hyperglycemia; G25.81 Restless legs syndrome; F32.9 Major depressive disorder, single episode, unspecified; M19.011 Primary osteoarthritis, right shoulder; M19.012 Primary osteoarthritis, left shoulder; Z79.899 Other long term (current) drug therapy; Z96.653 Presence of artificial knee joint, bilateral
CPT/HCPCS: 70487; 71045; 80048; 80053; 81001; 83605; 83690; 83735; 85025; 87040; 87804; 96361; 96365; 96366; 96372; 97162; 99285; G0378; G8987; G8988; J1815; J2543; J7030; P9612; Q9967

== ENCOUNTER 2017-07-23 15:04 | Inpatient (IN) | payer MEDICARE ==
[~2017-07-23] VITALS: Ht 154.9 cm; Wt 68.5 kg
[~2017-07-23 15:04] MED LIST changes: -ARIC5TAB PO; +AUGM500T7 PO; -BACL10TA PO; +CALC1TAB PO; +CO Q50CA PO; +DONE5TAB7 PO; -LACT10SO47 PO; +NIFE30TA61 PO; -NIFE90TA2 PO; +OMEP20TA93 PO; +PARO10TA2 PO; +PRIM50TA5 PO; -TRAM-492 PO; +VITA150T PO
[2017-07-23 15:08] VITALS: BP 122/69; PULSE 91; RESP 16; TEMP 102.8; O2SAT 95
[2017-07-23] MEDS ORDERED: SODIUM CHLOR 0.9% 1000 ML INJ 1,000 ML IV ONE (16:43)
[2017-07-23] MEDS ORDERED: ACETAMINOPHEN 325 MG TAB PO ONE (16:45)
[2017-07-23 16:48] VITALS: RESP 15; O2SAT 99
[2017-07-23 17:33] VITALS: BP 114/66; PULSE 90; RESP 16; TEMP 99.9; O2SAT 98
[2017-07-23 17:35] LABS: AUTOMATED NEUTROPHIL # 12.7 TH/MM3 (1.8-7.7); BASOPHIL % 0.3 % (0.0-2.0); HEMOGLOBIN 10.5 GM/DL (11.6-15.3); LYMPH % 2.8 % (9.0-44.0); LYMPHOCYTE # 0.4 TH/MM3 (1.0-4.8); MEAN CELL VOLUME 95.3 FL (80.0-100.0); MEAN CORPUSCULAR HEMOGLOBIN 32.2 PG (27.0-34.0); MEAN CORPUSCULAR HGB CONC 33.8 % (32.0-36.0); MEAN PLATELET VOLUME 9.8 FL (7.0-11.0); MONO % 5.8 % (0.0-8.0); MONOCYTE # 0.8 TH/MM3 (0-0.9); NEUT % 91.1 % (16.0-70.0); PLATELET COUNT 148 TH/MM3 (150-450); RED BLOOD COUNT 3.25 MIL/MM3 (4.00-5.30); RED CELL DISTRIBUTION WIDTH 13.8 % (11.6-17.2); WHITE BLOOD COUNT 13.9 TH/MM3 (4.0-11.0)
--- NOTE | 2017-07-23 17:36 | RADRPT ---
EXAM DATE/TIME: 07/23/2017 17:04 [facility] COMPARISON: CHEST PA & LAT, January 18, 2016, 10:31. CHEST SINGLE AP, July 21, 2017, 12:32. INDICATIONS : Fever MEDICAL HISTORY : Cardiovascular disease. SURGICAL HISTORY : None. ENCOUNTER: Initial ACUITY: 1 day PAIN SCORE: 0/10 LOCATION: chest FINDINGS: Portable AP view of the chest demonstrates a normal-sized cardiac silhouette. No effusion, consolidat ion, or pneumothorax is identified. Lungs are mildly underinflated. Proximal humeri are abnormal bila terally with loss of the right humeral head and scalloping of the margin of the left proximal humerus . CONCLUSION: 1. Stable chest x-ray without acute cardiopulmonary abnormality identified. 2. Stable abnormal but nonspecific changes of the bilateral humeri. Maged Hedrick MD on July 23, 2017 at 17:33 Board Certified Radiologist. This report was verified electronically.
[2017-07-23 17:39] LABS: BILIRUBIN, URINE NEG (NEG); BLOOD, URINE NEG (NEG); GLUCOSE,URINE NEG (NEG); KETONE, URINE NEG (NEG); MUCUS URINE FEW /lpf (OCC); NITRITE,URINE NEG (NEG); PH, URINE 5.5 (5.0-8.5); SQUAMOUS EPITHELIAL CELL URINE 2 /hpf (0-5); URINE COLOR YELLOW (YELLW/STRAW); URINE LEUKOCYTE ESTERASE NEG (NEG)
[2017-07-23 18:04] LABS: ALBUMIN 2.8 GM/DL (3.4-5.0); ALKALINE PHOSPHATASE 68 U/L (45-117); ALT (GPT) 17 U/L (10-53); AST (GOT) 24 U/L (15-37); BICARBONATE 24.7 MEQ/L (21.0-32.0); BLOOD UREA NITROGEN 47 MG/DL (7-18); CALCIUM 7.9 MG/DL (8.5-10.1); CHLORIDE 98 MEQ/L (98-107); CREATININE 1.66 MG/DL (0.50-1.00); GLOMERULAR FILTRATION RATE 29 ML/MIN (>89); GLUCOSE,RANDOM 221 MG/DL (74-106); SODIUM (NA) 130 MEQ/L (136-145); TOTAL BILIRUBIN ADULT 0.4 MG/DL (0.2-1.0); TROPONIN I LESS THAN 0.02 NG/ML (0.02-0.05)
--- NOTE | 2017-07-23 18:25 | PD ---
HPI Chief Complaint: Fever Time Seen by Provider: 16:11 Travel History International Travel<30 days: No Contact w/Intl Traveler<30days: No Traveled to known affect area: No History of Present Illness HPI Patient is an 87-year-old female who comes in complaining of fever. She was here 2 days ago and was admitted for fever with leukocytosis she was discharged the following day. She says that she developed a fever again, and the visiting nurse told her to come in. Prior to this occurring, she did have a dental procedure performed. She is not complaining of any pain to her mouth. When she was admitted the first time, there is no evidence on CAT scan of any infection buildup. Blood cultures from her first visit were negative. She does complain now of some chest pressure, she says she put some Vicks vapor rub on her chest last night. She has not had any coughing. Her son says she is very weak and is unable to walk. He says whenever he does try to get her up and help her move around, she is severely short of breath. She has not taken anything at home for her symptoms. Severity is mild to moderate. PFSH Past Medical History Arthritis: Yes (BENJAMIN. shoulder) Autoimmune Disease: No Blood Disorders: No Anxiety: No Depression: No Cancer: Yes (skin ca) Cardiovascular Problems: Yes High Cholesterol: Yes Chemotherapy: Yes (Right hand) Diabetes: Yes (PRE-DIABETIC ) Patient Takes Glucophage: No Diminished Hearing: No Endocrine: Yes Gastrointestinal Disorders: No GERD: Yes Genitourinary: No Hypertension: Yes Musculoskeletal: Yes (rt and left knee replacements bunyon on foot) Neurologic: Yes (Tremors) Psychiatric: No Respiratory: No Radiation Therapy: No Ulcer: Yes Tetanus Vaccination: > 5 Years Influenza Vaccination: Yes Menopausal: Yes : 2 Para: 2 Past Surgical History Gynecologic Surgery: Yes (Hysterectomy 1967) Hysterectomy: Yes (TOTAL) Other Surgery: Yes Social History Alcohol Use: No Tobacco Use: No (quit 1967) Substance Use: No Allergies-Medications (Allergen,Severity, Reaction): Coded Allergies: ketoprofen (Verified Allergy, Mild, contraindications, 07/23/17) RENAL INSUFICENCY etodolac (Unverified Adverse Reaction, Intermediate, contraindications, ) RENAL INSUFICENCY diclofenac (Unverified Adverse Reaction, Mild, contraindications, 07/23/17) RENAL INSUFICENCY flurbiprofen (Verified Adverse Reaction, Mild, contraindications, 07/23/17) RENAL INSUFICENCY ibuprofen (Verified Adverse Reaction, Mild, contraindications, 07/23/17) RENAL INSUFICENCY indomethacin (Verified Adverse Reaction, Mild, contraindications, 07/23/17) RENAL INSUFICENCY ketorolac (Verified Adverse Reaction, Mild, contraindications, 07/23/17) RENAL INSUFICENCY naproxen (Verified Adverse Reaction, Mild, contraindications, 07/23/17) RENAL INSUFICENCY oxaprozin (Verified Adverse Reaction, Mild, contraindications, 07/23/17) RENAL INSUFICENCY Reported Meds & Prescriptions Reported Meds & Active Scripts Active Reported Omeprazole 20 Mg Tab 20 Mg PO DAILY Paroxetine (Paroxetine HCl) 10 Mg Tab 10 Mg PO DAILY Primidone 50 Mg Tab 50 Mg PO BID Donepezil 5 Mg Tab 5 Mg PO HS Nifedipine ER 24 HR (Nifedipine) 30 Mg Tab 30 Mg PO BID Co Q-10 (Coenzyme Q10 (Ubidecarenone)) 50 Mg-5 Unit Cap 1 Tab PO DAILY Calcium Citrate Petite/ (Calcium Citrate-Vitamin D) 200-250 Mg-Unit Tab 1 Tab PO BID Lovastatin 20 Mg Tab 20 Mg PO DAILY Lisinopril 20 Mg Tab 20 Mg PO DAILY Atenolol 50 Mg Tab 50 Mg PO DAILY Review of Systems Except as stated in HPI: all other systems reviewed are Neg General / Constitutional: Positive: Fever HENT: No: Headaches, Lightheadedness Cardiovascular: Positive: Chest Pain or Discomfort Respiratory: Positive: Shortness of Breath, No: Cough Gastrointestinal: No: Nausea, Vomiting Musculoskeletal: No: Myalgias Skin: No Rash, No Change in Pigmentation Neurologic: Positive: Weakness, No: Dizziness Physical Exam Narrative GENERAL: Awake and alert, in no acute distress. SKIN: Focused skin assessment warm/dry. No wounds or signs of infection. HEAD: Atraumatic. Normocephalic. EYES: Pupils equal and round. No scleral icterus. No injection or drainage. ENT: Mucous membranes pink and moist. NECK: Trachea midline. No JVD. CARDIOVASCULAR: Regular rate and rhythm. No murmur appreciated. RESPIRATORY: No accessory muscle use. Clear to auscultation. Breath sounds equal bilaterally. GASTROINTESTINAL: Abdomen soft, non-tender, nondistended. MUSCULOSKELETAL: No obvious deformities. No clubbing. No cyanosis. No edema. NEUROLOGICAL: Awake and alert. No obvious cranial nerve deficits. Motor grossly within normal limits. Normal speech. PSYCHIATRIC: Appropriate mood and affect; insight and judgment normal. Data Data Last Documented VS Vital Signs Date Time Temp Pulse Resp B/P (MAP) Pulse Ox O2 Delivery O2 Flow Rate FiO2 07/23/17 17:33 99.9 90 16 114/66 (82) 98 Room Air Orders Orders Electrocardiogram (07/23/17 16:43) Complete Blood Count With Diff (07/23/17 16:43) Comprehensive Metabolic Panel (07/23/17 16:43) Prothrombin Time / Inr (Pt) (07/23/17 16:43) Act Partial Throm Time (Ptt) (07/23/17 16:43) Lactic Acid Sepsis Protocol (07/23/17 16:43) Lipase (07/23/17 16:43) Troponin I (07/23/17 16:43) Urinalysis - C+S If Indicated (07/23/17 16:43) Influenzae A/B Antigen (07/23/17 16:43) Blood Culture (07/23/17 16:43) Chest, Single Ap (07/23/17 16:43) Blood Glucose (07/23/17 16:43) Ecg Monitoring (07/23/17 16:43) Iv Access Insert/Monitor (07/23/17 16:43) Oximetry (07/23/17 16:43) Oxygen Administration (07/23/17 16:43) Acetaminophen (Tylenol) (07/23/17 16:45) Sodium Chlor 0.9% 1000 Ml Inj (Ns 1000 M (07/23/17 16:43) Ceftriaxone Inj (Rocephin Inj) (07/23/17 18:30) Admit Order (Ed Use Only) (07/23/17 ) Labs Laboratory Tests Test 07/23/17 16:45 07/23/17 16:46 White Blood Count 13.9 TH/MM3 Red Blood Count 3.25 MIL/MM3 Hemoglobin 10.5 GM/DL Hematocrit 31.0 % Mean Corpuscular Volume 95.3 FL Mean Corpuscular Hemoglobin 32.2 PG Mean Corpuscular Hemoglobin Concent 33.8 % Red Cell Distribution Width 13.8 % Platelet Count 148 TH/MM3 Mean Platelet Volume 9.8 FL Neutrophils (%) (Auto) 91.1 % Lymphocytes (%) (Auto) 2.8 % Monocytes (%) (Auto) 5.8 % Eosinophils (%) (Auto) 0.0 % Basophils (%) (Auto) 0.3 % Neutrophils # (Auto) 12.7 TH/MM3 Lymphocytes # (Auto) 0.4 TH/MM3 Monocytes # (Auto) 0.8 TH/MM3 Eosinophils # (Auto) 0.0 TH/MM3 Basophils # (Auto) 0.0 TH/MM3 CBC Comment DIFF FINAL Differential Comment Prothrombin Time 10.0 SEC Prothromb Time International Ratio 1.0 RATIO Activated Partial Thromboplast Time 28.1 SEC Blood Urea Nitrogen 47 MG/DL Creatinine 1.66 MG/DL Random Glucose 221 MG/DL Total Protein 7.0 GM/DL Albumin 2.8 GM/DL Calcium Level 7.9 MG/DL Alkaline Phosphatase 68 U/L Aspartate Amino Transf (AST/SGOT) 24 U/L Alanine Aminotransferase (ALT/SGPT) 17 U/L Total Bilirubin 0.4 MG/DL Sodium Level 130 MEQ/L Potassium Level 5.1 MEQ/L Chloride Level 98 MEQ/L Carbon Dioxide Level 24.7 MEQ/L Anion Gap 7 MEQ/L Estimat Glomerular Filtration Rate 29 ML/MIN Lactic Acid Level 1.7 mmol/L Troponin I LESS THAN 0.02 NG/ML Lipase 141 U/L Urine Color YELLOW Urine Turbidity HAZY Urine pH 5.5 Urine Specific [place] 1.021 Urine Protein 30 mg/dL Urine Glucose (UA) NEG mg/dL Urine Ketones NEG mg/dL Urine Occult Blood NEG Urine Nitrite NEG Urine Bilirubin NEG Urine Urobilinogen LESS THAN 2.0 MG/DL Urine Leukocyte Esterase NEG Urine RBC 1 /hpf Urine WBC 1 /hpf Urine Squamous Epithelial Cells 2 /hpf Urine Mucus FEW /lpf Microscopic Urinalysis Comment CATH-CULT NOT IND MDM Medical Decision Making Medical Screen Exam Complete: Yes Emergency Medical Condition: Yes Medical Record Reviewed: Yes Differential Diagnosis Endocarditis versus pneumonia versus UTI versus viral infection Narrative Course Patient is an 87-year-old female who comes in complaining of a fever. Exam shows no acute abnormalities. She was febrile on arrival. IV established, labs sent. Labs do show an elevated white blood cell count and an elevated neutrophil count. She is given IV fluids and Tylenol. Blood culture sent. Given a dose of Rocephin due to concern for endocarditis after a dental procedure. I spoke with her dentist who is very concerned that the fever might be related to the procedure. Chest x-ray shows no acute abnormalities. Last 24 hours Impressions Chest X-Ray 07/23/17 1643 Signed Impressions: Service Date/Time: Sunday, July 23, 2017 17:04 - CONCLUSION: 1. Stable chest x-ray without acute cardiopulmonary abnormality identified. 2. Stable abnormal but nonspecific changes of the bilateral humeri. Maged Hedrick MD She will be admitted for further management. while patient was last here, per documentation, doctors wanted to keep her here for an additional day, but she insisted on going home. Diagnosis Primary Impression: Fever Qualified Codes: R50.9 - Fever, unspecified Additional Impression: Chest discomfort Admitting Information Admitting Physician Requests: Admit Danette Hernandez MD Jul 23, 2017 18:25
[2017-07-23] MEDS ORDERED: cefTRIAXone INJ 1,000 MG in SODIUM CHLORIDE 0.9% INJ 100 ML IV ONE (18:30)
[2017-07-23 19:20] VITALS: BP 119/56; PULSE 82; RESP 18; O2SAT 98
[2017-07-23] MEDS ORDERED: MAGNESIUM HYDROXIDE SUSP 30 ML CUP PO PRN (21:00)
[2017-07-23] MEDS ORDERED: BISACODYL 10 MG SUPP RECTAL PRN (21:00)
[2017-07-23] MEDS ORDERED: SODIUM CHLORIDE 0.9% FLUSH 10 ML FLUSH IV FLUSH PRN (21:00)
[2017-07-23] MEDS ORDERED: LACTULOSE SYRUP 20 GM/30 ML CUP PO PRN (21:00)
[2017-07-23] MEDS: SODIUM CHLORIDE 0.9% FLUSH 10 ML FLUSH IV FLUSH SCH (21:00)
[2017-07-23] MEDS ORDERED: NALOXONE HCL 0.4 MG/ML AMP IV PUSH PRN (21:00)
[2017-07-23] MEDS ORDERED: SENNOSIDES 8.6 MG TAB PO PRN (21:00)
--- NOTE | 2017-07-23 21:11 | HHI.HP ---
HPI Service [facility] Hospitalists Primary Care Physician Vernon Martinez MD Admission Diagnosis persistent fever, generalized weakness Chief Complaint: persistent fever weakness Travel History International Travel<30 Days: No Contact w/Intl Traveler <30 Da: No Traveled to Known Affected Are: No History of Present Illness Ms. Hernández is an 87 y/o female with HTN, hyperlipidemia, diabetes, CKD, stage 3, and memory loss who was brought to the ER at [facility] on 07/21/17 with increased weakness x 1 day and fever. Pt had oral surgery Tuesday and was told that she had an infected tooth that was removed. Pt was placed on Amoxicillin after that procedure and reported that overall she felt fine after the procedure and yesterday. She did not have any residual pain in her jaw. During the night last night she felt weak when she woke up to use the bathroom. She was afraid to walk to the bathroom because her legs felt too weak so her son helped her to the bathroom using her walker. She reports that she felt chilled during the night and she has tremors normally and it seemed worse than her baseline tremors. Then this morning the pt was unable to get out of bed herself due to weakness. Her son and the career technical supervisor had to wheel her to the bathroom on her walker. Her son called her PCP, Dr. Martinez, who reportedly recommended that she go to the ED for further evaluation. Pt was noted to have a fever of 102 degrees at admission. She denies any nausea/vomiting, abd pain, diarrhea, rash, dysuria, urinary frequency . Patient was started on Zosyn and had CT maxofacial showed previous surgery but no abscess ,patient did not want to stay another day in hospital and was discharged ,on po amoxicillin ,symptoms continued and she came back to hospital ,will restart on Zosyn and obtain 2d echo and blood cultures and follow up labs. Review of Systems Constitutional: COMPLAINS OF: Fatigue, Fever Neurologic: COMPLAINS OF: Localized weakness Past Family Social History Past Medical History Arthritis: Yes (BENJAMIN. shoulder) Autoimmune Disease: No Blood Disorders: No Anxiety: No Depression: No Cancer: Yes (skin ca) Cardiovascular Problems: Yes High Cholesterol: Yes Chemotherapy: Yes (Right hand) Diabetes: Yes (PRE-DIABETIC ) Patient Takes Glucophage: No Diminished Hearing: No Endocrine: Yes Gastrointestinal Disorders: No GERD: Yes Genitourinary: No Hypertension: Yes Musculoskeletal: Yes (rt and left knee replacements bunyon on foot) Neurologic: Yes (Tremors) Psychiatric: No Respiratory: No Radiation Therapy: No Ulcer: Yes Tetanus Vaccination: > 5 Years Influenza Vaccination: Yes Menopausal: Yes : 2 Para: 2 Past Surgical History Gynecologic Surgery: Yes (Hysterectomy 1967) Reported Medications Omeprazole 20 Mg Tab 20 Mg PO DAILY Paroxetine (Paroxetine HCl) 10 Mg Tab 10 Mg PO DAILY Primidone 50 Mg Tab 50 Mg PO BID Donepezil 5 Mg Tab 5 Mg PO HS Nifedipine ER 24 HR (Nifedipine) 30 Mg Tab 30 Mg PO BID Co Q-10 (Coenzyme Q10 (Ubidecarenone)) 50 Mg-5 Unit Cap 1 Tab PO DAILY Super B Complex (Vitamin B Complex Vit C No.4) 150 Mg Tablet PO DAILY Calcium Citrate Petite/ (Calcium Citrate-Vitamin D) 200-250 Mg-Unit Tab 1 Tab PO BID Lovastatin 20 Mg Tab 20 Mg PO DAILY Lisinopril 20 Mg Tab 20 Mg PO DAILY Atenolol 50 Mg Tab 50 Mg PO DAILY Allergies: Coded Allergies: ketoprofen (Verified Allergy, Mild, contraindications, 07/23/17) RENAL INSUFICENCY etodolac (Unverified Adverse Reaction, Intermediate, contraindications, ) RENAL INSUFICENCY diclofenac (Unverified Adverse Reaction, Mild, contraindications, 07/23/17) RENAL INSUFICENCY flurbiprofen (Verified Adverse Reaction, Mild, contraindications, 07/23/17) RENAL INSUFICENCY ibuprofen (Verified Adverse Reaction, Mild, contraindications, 07/23/17) RENAL INSUFICENCY indomethacin (Verified Adverse Reaction, Mild, contraindications, 07/23/17) RENAL INSUFICENCY ketorolac (Verified Adverse Reaction, Mild, contraindications, 07/23/17) RENAL INSUFICENCY naproxen (Verified Adverse Reaction, Mild, contraindications, 07/23/17) RENAL INSUFICENCY oxaprozin (Verified Adverse Reaction, Mild, contraindications, 07/23/17) RENAL INSUFICENCY Social History former smoker Physical Exam Vital Signs Vital Signs Date Time Temp Pulse Resp B/P (MAP) Pulse Ox O2 Delivery O2 Flow Rate FiO2 07/23/17 19:20 82 18 119/56 (77) 98 Room Air 07/23/17 17:33 99.9 90 16 114/66 (82) 98 Room Air 07/23/17 16:48 15 99 Room Air 07/23/17 16:48 99 Room Air 07/23/17 16:20 98 16 98 Room Air 07/23/17 15:08 102.8 91 16 122/69 (86) 95 Room Air Physical Exam GENERAL: This is a well-nourished, well-developed patient, in no apparent distress. SKIN: No rashes, ecchymoses or lesions. Cool and dry. HEAD: Atraumatic. Normocephalic. No temporal or scalp tenderness. EYES: Pupils equal round and reactive. Extraocular motions intact. No scleral icterus. No injection or drainage. ENT: Nose without bleeding, purulent drainage or septal hematoma. Throat without erythema, tonsillar hypertrophy or exudate. Uvula midline. Airway patent. NECK: Trachea midline. No JVD or lymphadenopathy. Supple, nontender, no meningeal signs. CARDIOVASCULAR: Regular rate and rhythm without murmurs, gallops, or rubs. RESPIRATORY: Clear to auscultation. Breath sounds equal bilaterally. No wheezes , rales, or rhonchi. GASTROINTESTINAL: Abdomen soft, non-tender, nondistended. No hepato-splenomegaly , or palpable masses. No guarding. MUSCULOSKELETAL: Extremities without clubbing, cyanosis, or edema. No joint tenderness, effusion, or edema noted. No calf tenderness. Negative Homans sign bilaterally. NEUROLOGICAL: Awake and alert. Cranial nerves II through XII intact. Motor and sensory grossly within normal limits. Five out of 5 muscle strength in all muscle groups. Normal speech. Chronic tremor Laboratory Laboratory Tests Test 07/23/17 16:45 07/23/17 16:46 White Blood Count 13.9 Red Blood Count 3.25 Hemoglobin 10.5 Hematocrit 31.0 Mean Corpuscular Volume 95.3 Mean Corpuscular Hemoglobin 32.2 Mean Corpuscular Hemoglobin Concent 33.8 Red Cell Distribution Width 13.8 Platelet Count 148 Mean Platelet Volume 9.8 Neutrophils (%) (Auto) 91.1 Lymphocytes (%) (Auto) 2.8 Monocytes (%) (Auto) 5.8 Eosinophils (%) (Auto) 0.0 Basophils (%) (Auto) 0.3 Neutrophils # (Auto) 12.7 Lymphocytes # (Auto) 0.4 Monocytes # (Auto) 0.8 Eosinophils # (Auto) 0.0 Basophils # (Auto) 0.0 CBC Comment DIFF FINAL Differential Comment Prothrombin Time 10.0 Prothromb Time International Ratio 1.0 Activated Partial Thromboplast Time 28.1 Blood Urea Nitrogen 47 Creatinine 1.66 Random Glucose 221 Total Protein 7.0 Albumin 2.8 Calcium Level 7.9 Alkaline Phosphatase 68 Aspartate Amino Transf (AST/SGOT) 24 Alanine Aminotransferase (ALT/SGPT) 17 Total Bilirubin 0.4 Sodium Level 130 Potassium Level 5.1 Chloride Level 98 Carbon Dioxide Level 24.7 Anion Gap 7 Estimat Glomerular Filtration Rate 29 Lactic Acid Level 1.7 Troponin I LESS THAN 0.02 Lipase 141 Urine Color YELLOW Urine Turbidity HAZY Urine pH 5.5 Urine Specific [place] 1.021 Urine Protein 30 Urine Glucose (UA) NEG Urine Ketones NEG Urine Occult Blood NEG Urine Nitrite NEG Urine Bilirubin NEG Urine Urobilinogen LESS THAN 2.0 Urine Leukocyte Esterase NEG Urine RBC 1 Urine WBC 1 Urine Squamous Epithelial Cells 2 Urine Mucus FEW Microscopic Urinalysis Comment CATH-CULT NOT IND Date/Time Source Procedure Growth Status 07/23/17 16:48 Blood Peripheral Aerobic Blood Culture Pending Received 07/23/17 16:48 Blood Peripheral Anaerobic Blood Culture Pending Received 07/23/17 16:46 Nasal Washing Influenza Types A,B Antigen (FACUNDO) - Final NEGATIVE FOR FLU A AND B ANTIGEN.... Complete Result Diagram: 07/23/17 1645 07/23/17 1645 Imaging Last 24 hours Impressions Chest X-Ray 07/23/17 1643 Signed Impressions: Service Date/Time: Sunday, July 23, 2017 17:04 - CONCLUSION: 1. Stable chest x-ray without acute cardiopulmonary abnormality identified. 2. Stable abnormal but nonspecific changes of the bilateral humeri. Maged Hedrick MD Course ekg no acute changes was given rocephin in er Caprini VTE Risk Assessment Caprini VTE Risk Assessment: Mod/High Risk (score >= 2) Caprini Risk Assessment Model Point Value = 1 Point Value = 2 Point Value = 3 Point Value = 5 Age 41-60 Minor surgery BMI > 25 kg/m2 Swollen legs Varicose veins or History of unexplained or recurrent spontaneous Oral contraceptives or hormone replacement Sepsis (< 1 month) Serious lung disease, including pneumonia (< 1 month) Abnormal pulmonary function Acute myocardial infarction Congestive heart failure (< 1 month) History of inflammatory bowel disease Medical patient at bed rest Age 61-74 Arthroscopic surgery Major open surgery (> 45 min) Laparoscopic surgery (> 45 min) Malignancy Confined to bed (> 72 hours) Immobilizing plaster cast Central venous access Age >= 75 History of VTE Family history of VTE Factor V Leiden Prothrombin [id number] Lupus anticoagulant Anticardiolipin antibodies Elevated serum homocysteine Heparin-induced thrombocytopenia Other congenital or acquired thrombophilia Stroke (< 1 month) Elective arthroplasty Hip, pelvis, or leg fracture Acute spinal cord injury (< 1 month) Prophylaxis Regimen Total Risk Factor Score Risk Level Prophylaxis Regimen 0-1 Low Early ambulation 2 Moderate Order ONE of the following: *Sequential Compression Device (SCD) *Heparin 5000 units SQ BID 3-4 Higher Order ONE of the following medications: *Heparin 5000 units SQ TID *Enoxaparin/Lovenox 40 mg SQ daily (WT < 150 kg, CrCl > 30 mL/min) *Enoxaparin/Lovenox 30 mg SQ daily (WT < 150 kg, CrCl > 10-29 mL/min) *Enoxaparin/Lovenox 30 mg SQ BID (WT < 150 kg, CrCl > 30 mL/min) AND/OR *Sequential Compression Device (SCD) 5 or more Highest Order ONE of the following medications: *Heparin 5000 units SQ TID (Preferred with Epidurals) *Enoxaparin/Lovenox 40 mg SQ daily (WT < 150 kg, CrCl > 30 mL/min) *Enoxaparin/Lovenox 30 mg SQ daily (WT < 150 kg, CrCl > 10-29 mL/min) *Enoxaparin/Lovenox 30 mg SQ BID (WT < 150 kg, CrCl > 30 mL/min) AND *Sequential Compression Device (SCD) Assessment and Plan Problem List: (1) Fever ICD Codes: R50.9 - Fever, unspecified Status: Acute Plan: will continue Zosyn and recheck blood cultures and WBC counts (2) Generalized weakness ICD Codes: R53.1 - Weakness Status: Acute Plan: will need PT and may require rehab for strength Assessment and Plan further plan as case develops i did discuss with Dr. Mahan he wants 2d echo also Code Status full Discussed Condition With patient Physician Certification 2 Midnight Certification Type: Admission for Inpatient Services Order for Inpatient Services The services are ordered in accordance with Medicare regulations or non- Medicare payer requirements, as applicable. In the case of services not specified as inpatient-only, they are appropriately provided as inpatient services in accordance with the 2-midnight benchmark. Estimated LOS (days): 2 2 days is the estimated time the patient will need to remain in the hospital, assuming treatment plan goals are met and no additional complications. Post-Hospital Plan: Not yet determined Problem Qualifiers (1) Fever: Qualified Codes: R50.9 - Fever, unspecified Kenneth Mckee MD Jul 23, 2017 21:11
--- NOTE | 2017-07-23 21:12 | EKG ---
Date Performed: 07/23/2017 Time Performed: 16:15:20 PTAGE: 87 years EKG: ATRIAL FIBRILLATION ABNORMAL RHYTHM ECG PREVIOUS TRACING : 02/13/2016 16.16 Compared to previous tracing, atrial fibrillation has repla maurice Sinus rhythm . DOCTOR: Dylan Duke Interpretating Date/Time 07/23/2017 21:11:06
[2017-07-23] MEDS: SODIUM CHLOR 0.45% 1000 ML INJ 1,000 ML IV SCH (23:07)
[2017-07-23] MEDS: NIFEdipine 30 MG SUSTAINED RELEASE TAB PO SCH (23:08)
[2017-07-23] MEDS: DOCUSATE SODIUM 50 MG/SENNA 8.6 MG TAB PO SCH (23:08)
[2017-07-23] MEDS: DONEPEZIL HCL 5 MG TAB PO SCH (23:08)
[2017-07-23] MEDS: PRIMIDONE 50 MG TAB PO SCH (23:08)
[2017-07-23] MEDS: PIPERACIL-TAZO 3.375 GM PREMIX 50 ML IV SCH (23:08)
[2017-07-24] VITALS (8 sets, daily range): BP systolic 121–166; BP diastolic 60–72; PULSE 82–105; RESP 17–22; TEMP 95.2–97.2; O2SAT 94–100
[2017-07-24] MEDS: PIPERACIL-TAZO 3.375 GM PREMIX 50 ML IV SCH ×4 (04:00→21:50)
[2017-07-24 06:11] LABS: BASOPHIL % 0.2 % (0.0-2.0); EOSINOPHIL # 0.1 TH/MM3 (0-0.4); EOSINOPHIL % 0.8 % (0.0-4.0); HEMATOCRIT 29.5 % (35.0-46.0); LYMPH % 7.8 % (9.0-44.0); LYMPHOCYTE # 0.8 TH/MM3 (1.0-4.8); MEAN CELL VOLUME 96.2 FL (80.0-100.0); MEAN CORPUSCULAR HEMOGLOBIN 32.6 PG (27.0-34.0); MEAN CORPUSCULAR HGB CONC 33.9 % (32.0-36.0); MONO % 7.8 % (0.0-8.0); MONOCYTE # 0.8 TH/MM3 (0-0.9); NEUT % 83.4 % (16.0-70.0); PLATELET COUNT 124 TH/MM3 (150-450); RED BLOOD COUNT 3.07 MIL/MM3 (4.00-5.30); RED CELL DISTRIBUTION WIDTH 14.1 % (11.6-17.2); WHITE BLOOD COUNT 9.6 TH/MM3 (4.0-11.0)
[2017-07-24 06:38] LABS: ALBUMIN 2.2 GM/DL (3.4-5.0); ALKALINE PHOSPHATASE 67 U/L (45-117); ALT (GPT) 15 U/L (10-53); AST (GOT) 20 U/L (15-37); BICARBONATE 19.3 MEQ/L (21.0-32.0); BLOOD UREA NITROGEN 48 MG/DL (7-18); CALCIUM 7.5 MG/DL (8.5-10.1); CHLORIDE 104 MEQ/L (98-107); CREATININE 1.37 MG/DL (0.50-1.00); GLOMERULAR FILTRATION RATE 36 ML/MIN (>89); GLUCOSE,RANDOM 108 MG/DL (74-106); SODIUM (NA) 133 MEQ/L (136-145); TOTAL BILIRUBIN ADULT 0.3 MG/DL (0.2-1.0); TOTAL PROTEIN 6.4 GM/DL (6.4-8.2)
[2017-07-24] MEDS: NIFEdipine 30 MG SUSTAINED RELEASE TAB PO SCH ×2 (08:25→21:50)
[2017-07-24] MEDS: SODIUM CHLORIDE 0.9% FLUSH 10 ML FLUSH IV FLUSH SCH ×2 (08:25→21:49)
[2017-07-24] MEDS: LISINOPRIL 20 MG TAB PO SCH (08:26)
[2017-07-24] MEDS: PARoxetine HCL 20 MG TAB PO SCH (08:26)
[2017-07-24] MEDS: ATENOLOL 50 MG TAB PO SCH (08:26)
[2017-07-24] MEDS: PRAVASTATIN SOD 20 MG TAB PO SCH (08:26)
[2017-07-24] MEDS: PANTOPRAZOLE SOD 20 MG DELAYED RELEASE TAB PO SCH (08:26)
[2017-07-24] MEDS: PRIMIDONE 50 MG TAB PO SCH ×2 (08:32→21:50)
[2017-07-24] MEDS: DOCUSATE SODIUM 50 MG/SENNA 8.6 MG TAB PO SCH ×2 (08:32→21:50)
[2017-07-24] MEDS: CALCIUM/VITAMIN D 250 MG/125 U TAB PO SCH ×2 (08:32→21:50)
--- NOTE | 2017-07-24 09:34 | HHI.PR ---
Subjective Remarks Pt had some loose stools overnight last night Afebrile since admission Pt reports that after she left she felt weaker and began having fevers again Objective Vitals Vital Signs Date Time Temp Pulse Resp B/P (MAP) Pulse Ox O2 Delivery O2 Flow Rate FiO2 07/24/17 08:00 96.9 82 18 121/61 (81) 96 07/24/17 04:00 97.2 105 17 149/71 (97) 94 07/24/17 00:01 82 07/24/17 00:00 95.2 96 17 128/60 (82) 98 07/23/17 21:50 07/23/17 19:20 82 18 119/56 (77) 98 Room Air 07/23/17 17:33 99.9 90 16 114/66 (82) 98 Room Air 07/23/17 16:48 15 99 Room Air 07/23/17 16:48 99 Room Air 07/23/17 16:20 98 16 98 Room Air 07/23/17 15:08 102.8 91 16 122/69 (86) 95 Room Air Result Diagram: 07/24/17 0515 07/24/17 0515 Other Results Laboratory Tests Test 07/23/17 16:45 07/23/17 16:46 07/24/17 05:15 White Blood Count 13.9 TH/MM3 9.6 TH/MM3 Red Blood Count 3.25 MIL/MM3 3.07 MIL/MM3 Hemoglobin 10.5 GM/DL 10.0 GM/DL Hematocrit 31.0 % 29.5 % Mean Corpuscular Volume 95.3 FL 96.2 FL Mean Corpuscular Hemoglobin 32.2 PG 32.6 PG Mean Corpuscular Hemoglobin Concent 33.8 % 33.9 % Red Cell Distribution Width 13.8 % 14.1 % Platelet Count 148 TH/MM3 124 TH/MM3 Mean Platelet Volume 9.8 FL 9.0 FL Neutrophils (%) (Auto) 91.1 % 83.4 % Lymphocytes (%) (Auto) 2.8 % 7.8 % Monocytes (%) (Auto) 5.8 % 7.8 % Eosinophils (%) (Auto) 0.0 % 0.8 % Basophils (%) (Auto) 0.3 % 0.2 % Neutrophils # (Auto) 12.7 TH/MM3 8.0 TH/MM3 Lymphocytes # (Auto) 0.4 TH/MM3 0.8 TH/MM3 Monocytes # (Auto) 0.8 TH/MM3 0.8 TH/MM3 Eosinophils # (Auto) 0.0 TH/MM3 0.1 TH/MM3 Basophils # (Auto) 0.0 TH/MM3 0.0 TH/MM3 CBC Comment DIFF FINAL DIFF FINAL Differential Comment Prothrombin Time 10.0 SEC Prothromb Time International Ratio 1.0 RATIO Activated Partial Thromboplast Time 28.1 SEC Blood Urea Nitrogen 47 MG/DL 48 MG/DL Creatinine 1.66 MG/DL 1.37 MG/DL Random Glucose 221 MG/DL 108 MG/DL Total Protein 7.0 GM/DL 6.4 GM/DL Albumin 2.8 GM/DL 2.2 GM/DL Calcium Level 7.9 MG/DL 7.5 MG/DL Alkaline Phosphatase 68 U/L 67 U/L Aspartate Amino Transf (AST/SGOT) 24 U/L 20 U/L Alanine Aminotransferase (ALT/SGPT) 17 U/L 15 U/L Total Bilirubin 0.4 MG/DL 0.3 MG/DL Sodium Level 130 MEQ/L 133 MEQ/L Potassium Level 5.1 MEQ/L 4.9 MEQ/L Chloride Level 98 MEQ/L 104 MEQ/L Carbon Dioxide Level 24.7 MEQ/L 19.3 MEQ/L Anion Gap 7 MEQ/L 10 MEQ/L Estimat Glomerular Filtration Rate 29 ML/MIN 36 ML/MIN Lactic Acid Level 1.7 mmol/L Troponin I LESS THAN 0.02 NG/ML Lipase 141 U/L Urine Color YELLOW Urine Turbidity HAZY Urine pH 5.5 Urine Specific [place] 1.021 Urine Protein 30 mg/dL Urine Glucose (UA) NEG mg/dL Urine Ketones NEG mg/dL Urine Occult Blood NEG Urine Nitrite NEG Urine Bilirubin NEG Urine Urobilinogen LESS THAN 2.0 MG/DL Urine Leukocyte Esterase NEG Urine RBC 1 /hpf Urine WBC 1 /hpf Urine Squamous Epithelial Cells 2 /hpf Urine Mucus FEW /lpf Microscopic Urinalysis Comment CATH-CULT NOT IND Imaging Last 24 hours Impressions Chest X-Ray 07/23/17 8083 Signed Impressions: Service Date/Time: Sunday, July 23, 2017 17:04 - CONCLUSION: 1. Stable chest x-ray without acute cardiopulmonary abnormality identified. 2. Stable abnormal but nonspecific changes of the bilateral humeri. Maged Hedrick MD Objective Remarks General: NAD, AAOx3 Chest: CTA Cardiac: Regular Abd: +BS, soft ND/NT Ext: No edema A/P Problem List: (1) Fever ICD Codes: R50.9 - Fever, unspecified Status: Acute Plan: Generalized weakness Fevers Leukocytosis - Pt 87 y/o female with HTN, hyperlipidemia, diabetes, CKD, stage 3, and memory loss who was initially admitted to [facility] [place] with increased weakness and fever. - Pt had oral surgery 07/19/27, and was told that she had an infected tooth that was removed. Pt was placed on Amoxicillin after that procedure. Two days later she developed increased generalized weakness and chills. Pt was noted to have a fever of 102 degrees at the time of that admission. - Blood cultures were drawn (07/21/17) which have NGTD. Pt tested negative for Influenza. CXR was negative - Maxillofacial CT (07/21) --> Subcutaneous air involving the right cheek and right temporal region consistent with the postoperative nature of this patient. No fluid collection or inflammatory/infectious abnormality. - Pt was given Zosyn. On 07/22 pt insisted on discharge to home and was discharged on Augmentin. - She returned to the ED on 07/23 with fevers and generalized weakness. - Repeat blood cultures were drawn on 07/23 and are pending. - She again tested negative for Influenza. - The etiology for her symptoms is unclear, possibly secondary to her dental infection vs. viral illness vs. other - Zosyn was resumed at admission. - 2D echo is ordered - Pt had some loose stools overnight, check stool culture and C. diff - PT evaluation. - Supportive care HTN - Home meds continued with hold parameters Hyperglycemia - Check Hgb A1C - NovoLog SSI - Accu checks Tremor - Home meds continued (2) Generalized weakness ICD Codes: R53.1 - Weakness Status: Acute (3) HTN (hypertension) ICD Codes: I10 - Essential (primary) hypertension Status: Chronic (4) Diabetes mellitus ICD Codes: E11.9 - Type 2 diabetes mellitus without complications Status: Chronic (5) Tremor ICD Codes: R25.1 - Tremor Status: Chronic (6) Dental infection ICD Codes: K04.7 - Periapical abscess without sinus Status: Acute Assessment and Plan Patient examined. Assessment and plan formulated with Tricia Mcallister PA-C. I agree with the above. persistent fever on abx at home. recent dental procedure and "infection" f/u blood cx's and echo. now diarrhea..stool studies ordered cont [facility] Problem Qualifiers (1) Fever: Qualified Codes: R50.9 - Fever, unspecified Tricia Mcallister Jul 24, 2017 09:34 Deangelo Mahan MD Jul 24, 2017 15:32
[2017-07-24] MEDS ORDERED: LORATADINE 10 MG TAB PO ONE (10:45)
[2017-07-24] MEDS: INSULIN ASPART SUPPLEMENTAL SCALE SQ SCH ×3 (12:00→21:00)
[2017-07-24 12:24] LABS: HEMOGLOBIN A1C 6.3 % (4.3-6.0)
[2017-07-24] MEDS: SODIUM CHLOR 0.45% 1000 ML INJ 1,000 ML IV SCH ×2 (14:28→21:50)
--- NOTE | 2017-07-24 15:11 | ECHRPT ---
Indication: SEPSIS/ENDOCARDITIS CONCLUSIONS Technically difficult study. The left ventricular systolic function is severely reduced with an estimated ejection fraction in th e range of 30-35%. Wall thickness is measured at the upper limits of normal. Normal left ventricular size. The left ventricle is not well visualized. [id number] mitral valve regurgitation. The aortic valve is not well visualized. Aortic valve sclerosis is present. No aortic valve stenosis. Trace aortic valve regurgitation. There is trace tricuspid valve regurgitation. The estimated pulmonary arterial pressure is 26.2 mmHg. BP: / HR: Rhythm: Sinus MEASUREMENTS (Male / Female) Normal Values Technical Quality:technically difficult study 2D ECHO LV Diastolic Diameter PLAX 4.4 cm 4.2 - 5.9 / 3.9 - 5.3 cm LV Systolic Diameter PLAX 3.7 cm IVS Diastolic Thickness 1.1 cm 0.6 - 1.0 / 0.6 - 0.9 cm LVPW Diastolic Thickness 1.1 cm 0.6 - 1.0 / 0.6 - 0.9 cm LV Relative Wall Thickness 0.5 LVOT Diameter 1.8 cm M-MODE Aortic Root Diameter MM 2.1 cm LA Systolic Diameter MM 3.2 cm LA Ao Ratio MM 1.5 AV Cusp Separation MM 1.5 cm DOPPLER AV Peak Velocity 186.0 cm/s AV Peak Gradient 13.8 mmHg LVOT Peak Velocity 80.9 cm/s LVOT Peak Gradient 2.6 mmHg AV Area Cont Eq pk 1.1 cm MR Peak Velocity 310.3 cm/s MR Peak Gradient 38.5 mmHg TR Peak Velocity 201.0 cm/s TR Peak Gradient 16.2 mmHg Right Atrial Pressure 10.0 mmHg Pulmonary Artery Systolic Pressu 26.2 mmHg Right Ventricular Systolic Press 26.2 mmHg PV Peak Velocity 153.0 cm/s PV Peak Gradient 9.4 mmHg FINDINGS LEFT VENTRICLE The left ventricular systolic function is severely reduced with an estimated ejection fraction in th e range of 30-35%. Wall thickness is measured at the upper limits of normal. Normal left ventricular size. The left ventricle is not well visualized. RIGHT VENTRICLE Normal right ventricular size and systolic function. LEFT ATRIUM The left atrial size is normal. RIGHT ATRIUM The right atrial size is normal. ATRIAL SEPTUM Normal atrial septal thickness without atrial level shunting by limited color doppler interrogation. AORTA The aortic root and proximal ascending aorta are normal in size on limited imaging. MITRAL VALVE [id number] mitral valve regurgitation. Structurally normal mitral valve. AORTIC VALVE The aortic valve is not well visualized. Aortic valve sclerosis is present. No aortic valve stenosis. Trace aortic valve regurgitation. TRICUSPID VALVE There is trace tricuspid valve regurgitation. The estimated pulmonary arterial pressure is 26.2 mmHg. Structurally normal tricuspid valve. PULMONARY VALVE No pulmonary valve regurgitation or stenosis. VESSELS The inferior vena cava is normal in size. PERICARDIUM No pericardial effusion. Jerry Charles MD, FACC (Electronically Signed) Final Date:24 July 2017 15:10
[2017-07-24] MEDS: DONEPEZIL HCL 5 MG TAB PO SCH (21:50)
[2017-07-25] VITALS (14 sets, daily range): BP systolic 137–206; BP diastolic 67–91; PULSE 62–120; RESP 18–22; TEMP 97.7–99.2; O2SAT 91–100
[2017-07-25] MEDS: PIPERACIL-TAZO 3.375 GM PREMIX 50 ML IV SCH ×4 (02:52→21:59)
[2017-07-25 08:24] LABS: AUTOMATED NEUTROPHIL # 8.3 TH/MM3 (1.8-7.7); BASOPHIL % 0.2 % (0.0-2.0); EOSINOPHIL % 0.3 % (0.0-4.0); HEMATOCRIT 32.5 % (35.0-46.0); LYMPH % 5.1 % (9.0-44.0); LYMPHOCYTE # 0.5 TH/MM3 (1.0-4.8); MEAN CELL VOLUME 95.5 FL (80.0-100.0); MEAN CORPUSCULAR HEMOGLOBIN 32.3 PG (27.0-34.0); MEAN CORPUSCULAR HGB CONC 33.9 % (32.0-36.0); MEAN PLATELET VOLUME 8.8 FL (7.0-11.0); MONO % 6.3 % (0.0-8.0); MONOCYTE # 0.6 TH/MM3 (0-0.9); NEUT % 88.1 % (16.0-70.0); PLATELET COUNT 172 TH/MM3 (150-450); RED BLOOD COUNT 3.41 MIL/MM3 (4.00-5.30); RED CELL DISTRIBUTION WIDTH 14.3 % (11.6-17.2); WHITE BLOOD COUNT 9.4 TH/MM3 (4.0-11.0)
[2017-07-25] MEDS: CALCIUM/VITAMIN D 250 MG/125 U TAB PO SCH ×2 (08:31→21:58)
[2017-07-25] MEDS: PRIMIDONE 50 MG TAB PO SCH ×2 (08:31→21:58)
[2017-07-25] MEDS: PARoxetine HCL 20 MG TAB PO SCH (08:31)
[2017-07-25] MEDS: PANTOPRAZOLE SOD 20 MG DELAYED RELEASE TAB PO SCH (08:31)
[2017-07-25] MEDS: PRAVASTATIN SOD 20 MG TAB PO SCH (08:31)
[2017-07-25] MEDS: ATENOLOL 50 MG TAB PO SCH (08:31)
[2017-07-25] MEDS: NIFEdipine 30 MG SUSTAINED RELEASE TAB PO SCH ×2 (08:31→21:58)
[2017-07-25] MEDS: LISINOPRIL 20 MG TAB PO SCH (08:32)
[2017-07-25] MEDS: DOCUSATE SODIUM 50 MG/SENNA 8.6 MG TAB PO SCH ×2 (08:32→21:58)
[2017-07-25] MEDS: LORATADINE 10 MG TAB PO SCH (08:32)
[2017-07-25 08:56] LABS: BICARBONATE 23.7 MEQ/L (21.0-32.0); CALCIUM 8.6 MG/DL (8.5-10.1); CREATININE 1.36 MG/DL (0.50-1.00); MAGNESIUM 2.3 MG/DL (1.5-2.5)
[2017-07-25] MEDS: SODIUM CHLORIDE 0.9% FLUSH 10 ML FLUSH IV FLUSH SCH ×2 (09:23→21:00)
[2017-07-25] MEDS: INSULIN ASPART SUPPLEMENTAL SCALE SQ SCH ×3 (09:23→21:56)
--- NOTE | 2017-07-25 09:38 | HHI.PR ---
Subjective Remarks Pt feeling very nauseated and having some dry heaves at the time of my examination. She reports continued diarrhea. Denies any abdominal pain. No fevers overnight Objective Vitals Vital Signs Date Time Temp Pulse Resp B/P (MAP) Pulse Ox O2 Delivery O2 Flow Rate FiO2 07/25/17 08:00 97.7 91 20 206/91 (129) 91 07/25/17 06:04 22 96 07/25/17 05:31 160/80 (106) 07/25/17 04:00 98.8 100 20 95 07/25/17 00:00 99.2 82 18 176/77 (110) 92 07/24/17 20:03 103 07/24/17 20:00 97.0 96 20 166/72 (103) 100 07/24/17 16:00 96.5 95 22 156/67 (96) 95 07/24/17 12:00 96.9 94 18 156/64 (94) 97 Result Diagram: 07/25/17 0726 07/25/17 0726 Other Results Laboratory Tests Test 07/23/17 16:45 07/23/17 16:46 07/24/17 05:15 07/25/17 07:26 White Blood Count 13.9 TH/MM3 9.6 TH/MM3 9.4 TH/MM3 Red Blood Count 3.25 MIL/MM3 3.07 MIL/MM3 3.41 MIL/MM3 Hemoglobin 10.5 GM/DL 10.0 GM/DL 11.0 GM/DL Hematocrit 31.0 % 29.5 % 32.5 % Mean Corpuscular Volume 95.3 FL 96.2 FL 95.5 FL Mean Corpuscular Hemoglobin 32.2 PG 32.6 PG 32.3 PG Mean Corpuscular Hemoglobin Concent 33.8 % 33.9 % 33.9 % Red Cell Distribution Width 13.8 % 14.1 % 14.3 % Platelet Count 148 TH/MM3 124 TH/MM3 172 TH/MM3 Mean Platelet Volume 9.8 FL 9.0 FL 8.8 FL Neutrophils (%) (Auto) 91.1 % 83.4 % 88.1 % Lymphocytes (%) (Auto) 2.8 % 7.8 % 5.1 % Monocytes (%) (Auto) 5.8 % 7.8 % 6.3 % Eosinophils (%) (Auto) 0.0 % 0.8 % 0.3 % Basophils (%) (Auto) 0.3 % 0.2 % 0.2 % Neutrophils # (Auto) 12.7 TH/MM3 8.0 TH/MM3 8.3 TH/MM3 Lymphocytes # (Auto) 0.4 TH/MM3 0.8 TH/MM3 0.5 TH/MM3 Monocytes # (Auto) 0.8 TH/MM3 0.8 TH/MM3 0.6 TH/MM3 Eosinophils # (Auto) 0.0 TH/MM3 0.1 TH/MM3 0.0 TH/MM3 Basophils # (Auto) 0.0 TH/MM3 0.0 TH/MM3 0.0 TH/MM3 CBC Comment DIFF FINAL DIFF FINAL DIFF FINAL Differential Comment Prothrombin Time 10.0 SEC Prothromb Time International Ratio 1.0 RATIO Activated Partial Thromboplast Time 28.1 SEC Blood Urea Nitrogen 47 MG/DL 48 MG/DL 37 MG/DL Creatinine 1.66 MG/DL 1.37 MG/DL 1.36 MG/DL Random Glucose 221 MG/DL 108 MG/DL 220 MG/DL Total Protein 7.0 GM/DL 6.4 GM/DL Albumin 2.8 GM/DL 2.2 GM/DL Calcium Level 7.9 MG/DL 7.5 MG/DL 8.6 MG/DL Alkaline Phosphatase 68 U/L 67 U/L Aspartate Amino Transf (AST/SGOT) 24 U/L 20 U/L Alanine Aminotransferase (ALT/SGPT) 17 U/L 15 U/L Total Bilirubin 0.4 MG/DL 0.3 MG/DL Sodium Level 130 MEQ/L 133 MEQ/L 135 MEQ/L Potassium Level 5.1 MEQ/L 4.9 MEQ/L 4.4 MEQ/L Chloride Level 98 MEQ/L 104 MEQ/L 103 MEQ/L Carbon Dioxide Level 24.7 MEQ/L 19.3 MEQ/L 23.7 MEQ/L Anion Gap 7 MEQ/L 10 MEQ/L 8 MEQ/L Estimat Glomerular Filtration Rate 29 ML/MIN 36 ML/MIN 37 ML/MIN Lactic Acid Level 1.7 mmol/L Troponin I LESS THAN 0.02 NG/ML Lipase 141 U/L Urine Color YELLOW Urine Turbidity HAZY Urine pH 5.5 Urine Specific [place] 1.021 Urine Protein 30 mg/dL Urine Glucose (UA) NEG mg/dL Urine Ketones NEG mg/dL Urine Occult Blood NEG Urine Nitrite NEG Urine Bilirubin NEG Urine Urobilinogen LESS THAN 2.0 MG/DL Urine Leukocyte Esterase NEG Urine RBC 1 /hpf Urine WBC 1 /hpf Urine Squamous Epithelial Cells 2 /hpf Urine Mucus FEW /lpf Microscopic Urinalysis Comment CATH-CULT NOT IND Hemoglobin A1c 6.3 % Magnesium Level 2.3 MG/DL Test 07/25/17 08:24 Imaging Last 24 hours Impressions Chest X-Ray 07/23/17 1643 Signed Impressions: Service Date/Time: Sunday, July 23, 2017 17:04 - CONCLUSION: 1. Stable chest x-ray without acute cardiopulmonary abnormality identified. 2. Stable abnormal but nonspecific changes of the bilateral humeri. Maged Hedrick MD Objective Remarks General: NAD, AAOx3 Chest: Wheezing bilaterally Cardiac: Regular Abd: +BS, soft ND/NT Ext: No edema A/P Problem List: (1) Fever ICD Codes: R50.9 - Fever, unspecified Status: Acute Plan: Generalized weakness Fevers Leukocytosis - Pt 87 y/o female with HTN, hyperlipidemia, diabetes, CKD, stage 3, and memory loss who was initially admitted to [facility] on 07/21/17 with increased weakness and fever. - Pt had oral surgery 07/19/27, and was told that she had an infected tooth that was removed. Pt was placed on Amoxicillin after that procedure. Two days later she developed increased generalized weakness and chills. Pt was noted to have a fever of 102 degrees at the time of that admission. - Blood cultures were drawn (07/21/17) which have NGTD. Pt tested negative for Influenza. CXR was negative - Maxillofacial CT (07/21) --> Subcutaneous air involving the right cheek and right temporal region consistent with the postoperative nature of this patient. No fluid collection or inflammatory/infectious abnormality. - Pt was given Zosyn. On 07/22 pt insisted on discharge to home and was discharged on Augmentin. - She returned to the ED on 07/23 with fevers and generalized weakness. - Repeat blood cultures were drawn on 07/23 and are pending. - She again tested negative for Influenza. - The etiology for her symptoms is unclear, possibly secondary to her dental infection vs. viral illness vs.C. diff vs. other. - Zosyn was resumed at admission. - 2D echo (07/25/17): - Technically difficult study. - Estimated ejection fraction in the range of 30-35%. - [id number] mitral valve regurgitation. - Aortic valve sclerosis is present. - Trace aortic valve regurgitation. - There is trace tricuspid valve regurgitation. - The estimated pulmonary arterial pressure is 26.2 mmHg. - Pt had some loose stools, check stool culture and C. diff are pending - Zofran PRN as pt with some nausea and dry heaves this morning. May need to consider some abdominal imaging today - PT evaluation. - Supportive care SOB Hx of tobacco use - Pt had [facility] called for SOB - Pt with some noted wheezing - Duonebs one STAT and Q6H WA - CXR now - ABG HTN - Home meds continued - BP elevated this morning - Clonidine and vasotec PRN Hyperglycemia - Hgb A1C 6.3% - NovoLog SSI - Accu checks Tremor - Home meds continued (2) Generalized weakness ICD Codes: R53.1 - Weakness Status: Acute (3) HTN (hypertension) ICD Codes: I10 - Essential (primary) hypertension Status: Chronic (4) Diabetes mellitus ICD Codes: E11.9 - Type 2 diabetes mellitus without complications Status: Chronic (5) Tremor ICD Codes: R25.1 - Tremor Status: Chronic (6) Dental infection ICD Codes: K04.7 - Periapical abscess without sinus Status: Acute Assessment and Plan Patient examined. Assessment and plan formulated with Tricia Mcallister PA-C. I agree with the above. Pt with acute worsening of her respiratory status. Pt c/o nausea and sudden SOB. CXR (07/25) --> new infiltrate on RLL ABG (07/25) --> pH 7.14, CO2 67 Pt already receiving zosyn. Pt started on IV solumedrol, duonebs, and bipap Case d/w [facility], Dr. Lynne. Pt transferred to ICU. Problem Qualifiers (1) Fever: Qualified Codes: R50.9 - Fever, unspecified Tricia Mcallister Jul 25, 2017 09:38 Charles Herman DO Jul 25, 2017 10:52
[2017-07-25] MEDS ORDERED: ONDANSETRON HCL 4 MG/2 ML VIAL IV PUSH ONE (09:45)
[2017-07-25] MEDS ORDERED: ONDANSETRON HCL 4 MG/2 ML VIAL IV PRN (09:45)
[2017-07-25] MEDS ORDERED: cloNIDine HCL 0.1 MG TAB PO PRN (09:45)
[2017-07-25] MEDS ORDERED: ENALAPRILAT 1.25 MG/ML VIAL IV PUSH PRN (09:45)
[2017-07-25] MEDS ORDERED: RESP: ALBUTEROL 2.5 MG/IPRATROPIUM 0.5 MG NEB (PRN) ONE (10:15)
[2017-07-25] MEDS ORDERED: SODIUM CHLOR 0.9% 1000 ML INJ 1,000 ML IV ONE (11:00)
[2017-07-25] MEDS ORDERED: RESP: ALBUTEROL 2.5 MG/IPRATROPIUM 0.5 MG NEB (PRN) NEB (11:00)
[2017-07-25] MEDS ORDERED: MORPHINE SULFATE 2 MG/ML INJ ONE (11:08)
[2017-07-25] MEDS ORDERED: methylPREDNISolone SOD SUCC 125 MG/2 ML VIAL IV PUSH ONE (11:20)
[2017-07-25] MEDS ORDERED: RESP: ALBUTEROL 2.5 MG/IPRATROPIUM 0.5 MG NEB (SCH) NEB ONE (11:20)
--- NOTE | 2017-07-25 11:25 | RADRPT ---
EXAM DATE/TIME: 07/25/2017 10:36 [facility] COMPARISON: CHEST SINGLE AP, July 23, 2017, 17:04. INDICATIONS : Short of breath. MEDICAL HISTORY : Cardiovascular disease. SURGICAL HISTORY : None. ENCOUNTER: Initial ACUITY: 4 - 6 days PAIN SCORE: Non-responsive. LOCATION: Bilateral chest FINDINGS: Portable AP view of the chest demonstrates a normal-sized cardiac silhouette with calcification of th e aorta. Multiple EKG lines overlie the patient. There are abnormal perihilar and lower lung zone int erstitial opacities bilaterally with airspace consolidation at the right lung base. No pleural effusi on or pneumothorax is identified. Bones have a stable appearance with chronic changes of the proximal humeri bilaterally. CONCLUSION: Abnormal interstitial opacities bilaterally with right lower lung zone airspace consolidation. The pa ttern could represent interstitial and airspace pulmonary edema. Infection is less likely given the d istribution but also possible. Maged Hedrick MD on July 25, 2017 at 11:23 Board Certified Radiologist. This report was verified electronically.
--- NOTE | 2017-07-25 11:42 | PD.CONS ---
[facility] Service Critical Care Medicine Consult Requested By Dr. Herman Reason for Consult Acute hypoxemic and hypercapnic respiratory failure Acute systolic heart failure Right lower lobe pneumonia Cardiomyopathy EF 30-35% Probable sepsis Acute COPD exacerbation Uncontrolled hypertension Primary Care Physician Vernon Martinez MD History of Present Illness Patient is an 87-year-old female with past medical history of probable COPD, hypertension, dyslipidemia, diabetes, chronic kidney disease stage III, memory loss, recent echo 07/23/2017 showing cardiomyopathy EF 30-35% was admitted to [facility] on 07/23/2017. Apparently patient had infected tooth that was removed last Tuesday, and was placed on Amoxicillin. Patient was admitted 07/21 to the hospitalist service with high fever up to 102 and no clear source of infection. CT maxillofacial showed previous surgery but no abscess. She patient did not want to stay in hospital and was discharged on 07/22. Presented with similar symptoms again on 07/23/2017, and for probable sepsis was placed on Zosyn. Today patient developed acute respiratory decompensation, with labored breathing and hypoxia. Patient's ABG on 5 L nasal cannula showed pH of 7.14 base excess -6 PCO2 of 67 and PO2 92. Stat chest x- ray showed bilateral interstitial infiltrates and right lower lobe pneumonia. Patient was moved to the ICU and critical care medicine was consulted I immediately evaluated the patient in the ICU. She is in severe respiratory distress tachypneic using accessory muscles. Immediately placed on BiPAP 10/5 IV Solu-Medrol 1 stat DuoNeb also ordered. Review of echo done on 07/23/2017 shows EF of 30-35%. Chest x-ray shows pulmonary edema as well as pneumonia. I added Zyvox also added IV Lasix 20 mg every 12, Aldactone 25 mg po BID. Patient expressed wishes not to be intubated or resuscitated and I have changed her CODE STATUS to DNR Review of Systems ROS Limitations: Clinical Condition, Other (Respiratroy distress limits exam) Past Family Social History Allergies: Coded Allergies: ketoprofen (Verified Allergy, Mild, contraindications, 07/23/17) RENAL INSUFICENCY etodolac (Unverified Adverse Reaction, Intermediate, contraindications, ) RENAL INSUFICENCY diclofenac (Unverified Adverse Reaction, Mild, contraindications, 07/23/17) RENAL INSUFICENCY flurbiprofen (Verified Adverse Reaction, Mild, contraindications, 07/23/17) RENAL INSUFICENCY ibuprofen (Verified Adverse Reaction, Mild, contraindications, 07/23/17) RENAL INSUFICENCY indomethacin (Verified Adverse Reaction, Mild, contraindications, 07/23/17) RENAL INSUFICENCY ketorolac (Verified Adverse Reaction, Mild, contraindications, 07/23/17) RENAL INSUFICENCY naproxen (Verified Adverse Reaction, Mild, contraindications, 07/23/17) RENAL INSUFICENCY oxaprozin (Verified Adverse Reaction, Mild, contraindications, 07/23/17) RENAL INSUFICENCY Past Medical History HTN Hyperlipidemia Diabetes mellitus, with polyneuropathy Cardiomyopathy EF 30-35% RLS CKD, stage 3 Osteoarthritis Major depression Memory loss Past Surgical History Total Hysterectomy Back surgery Bunionectomy Bilateral cataract surgery 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 Tonsillectomy/Adenoidectomy Total knee arthroplasty, bilateral Reported Medications Omeprazole 20 Mg Tab 20 Mg PO DAILY Paroxetine (Paroxetine HCl) 10 Mg Tab 10 Mg PO DAILY Primidone 50 Mg Tab 50 Mg PO BID Donepezil 5 Mg Tab 5 Mg PO HS Nifedipine ER 24 HR (Nifedipine) 30 Mg Tab 30 Mg PO BID Co Q-10 (Coenzyme Q10 (Ubidecarenone)) 50 Mg-5 Unit Cap 1 Tab PO DAILY Calcium Citrate Petite/ (Calcium Citrate-Vitamin D) 200-250 Mg-Unit Tab 1 Tab PO BID Lovastatin 20 Mg Tab 20 Mg PO DAILY Lisinopril 20 Mg Tab 20 Mg PO DAILY Atenolol 50 Mg Tab 50 Mg PO DAILY Active Ordered Medications Reviewed Family History Noncontributory Social History Quit smoking 30 yrs ago Physical Exam Vital Signs Vital Signs Date Time Temp Pulse Resp B/P (MAP) Pulse Ox O2 Delivery O2 Flow Rate FiO2 07/25/17 11:15 98 35 07/25/17 10:10 94 5.00 07/25/17 08:00 97.7 91 20 206/91 (129) 91 07/25/17 06:04 22 96 07/25/17 05:31 160/80 (106) 07/25/17 04:00 98.8 100 20 95 07/25/17 00:00 99.2 82 18 176/77 (110) 92 07/24/17 20:03 103 2/25/18 20:00 97.0 96 20 166/72 (103) 100 07/24/17 16:00 96.5 95 22 156/67 (96) 95 07/24/17 12:00 96.9 94 18 156/64 (94) 97 Physical Exam GENERAL: Awake and alert, in severe respiratory distress. SKIN: Focused skin assessment warm/dry. HEAD: Atraumatic. Normocephalic. EYES: Pupils equal and round. No scleral icterus. No injection or drainage. ENT: Mucous membranes pink and moist. NECK: Trachea midline. +ve JVD. CARDIOVASCULAR: Regular rate and rhythm. No murmur appreciated. RESPIRATORY: Using accessory muscle use. Labored breathing tachypneic 40 breaths per minute. Diffuse bilateral wheezing predominantly right side. GASTROINTESTINAL: Abdomen soft, non-tender, nondistended. MUSCULOSKELETAL: No obvious deformities. NEUROLOGICAL: Awake and alert. No obvious cranial nerve deficits. Motor grossly within normal limits. Normal speech. Laboratory Laboratory Tests Test 07/25/17 07:26 07/25/17 08:24 07/25/17 10:20 White Blood Count 9.4 Red Blood Count 3.41 Hemoglobin 11.0 Hematocrit 32.5 Mean Corpuscular Volume 95.5 Mean Corpuscular Hemoglobin 32.3 Mean Corpuscular Hemoglobin Concent 33.9 Red Cell Distribution Width 14.3 Platelet Count 172 Mean Platelet Volume 8.8 Neutrophils (%) (Auto) 88.1 Lymphocytes (%) (Auto) 5.1 Monocytes (%) (Auto) 6.3 Eosinophils (%) (Auto) 0.3 Basophils (%) (Auto) 0.2 Neutrophils # (Auto) 8.3 Lymphocytes # (Auto) 0.5 Monocytes # (Auto) 0.6 Eosinophils # (Auto) 0.0 Basophils # (Auto) 0.0 CBC Comment DIFF FINAL Differential Comment Blood Urea Nitrogen 37 Creatinine 1.36 Random Glucose 220 Calcium Level 8.6 Magnesium Level 2.3 Sodium Level 135 Potassium Level 4.4 Chloride Level 103 Carbon Dioxide Level 23.7 Anion Gap 8 Estimat Glomerular Filtration Rate 37 Stool C. difficile Toxin (PCR) NEGATIVE Stl C. difficile Toxin Epiderm 027 PRESUMPTIVE NEGATIVE Blood Gas Puncture Site LT RADIAL Blood Gas Patient Temperature 98.6 Blood Gas HCO3 22 Blood Gas Base Excess -5.9 Blood Gas Oxygen Saturation 94 Arterial Blood pH 7.14 Arterial Blood Partial Pressure CO2 67 Arterial Blood Partial Pressure O2 92 Arterial Blood Oxygen Content 15.8 Arterial Blood Carboxyhemoglobin 0.8 Arterial Blood Methemoglobin 0.7 Blood Gas Hemoglobin 11.9 Oxygen Delivery Device NASAL CANNULA Blood Gas Liter Flow 5 Date/Time Source Procedure Growth Status 07/23/17 16:48 Blood Peripheral Aerobic Blood Culture - Preliminary NO GROWTH IN 2 DAYS Resulted 07/23/17 16:48 Blood Peripheral Anaerobic Blood Culture - Preliminary NO GROWTH IN 2 DAYS Resulted 07/23/17 16:46 Nasal Washing Influenza Types A,B Antigen (FACUNDO) - Final NEGATIVE FOR FLU A AND B ANTIGEN.... Complete Result Diagram: 07/25/1772507/25/17725 Imaging Chest x-ray shows pulmonary edema and right lower lobe infiltrate Septic Shock Reassessment Septic shock perfusion: reassessment completed Assessment and Plan Assessment and Plan ASSESSMENT: Acute hypoxemic and hypercapnic respiratory failure Acute systolic heart failure Right lower lobe pneumonia Cardiomyopathy EF 30-35% Probable sepsis Acute COPD exacerbation Uncontrolled hypertension Hyperlipidemia Diabetes mellitus, with polyneuropathy CKD, stage 3 PLAN: NEURO: -Minimize sedation -Morphine 2 mg IV every 4 hours as needed for pain and anxiety RESP: -Patient refuses intubation -BiPAP 03/03 -DuoNeb every 4 hours scheduled and as needed -IV Solu-Medrol 60 mg every 6 hours -Zosyn 4.5 g every 6 hours, Zyvox 600 mg IV every 12 -Influenza negative CVS: -Discontinue IV fluids -IV Lasix 20 mg every 12 -Follow-up chest x-ray in a.m. -Check BNP -Add Aldactone 25 q12 GI: -N.p.o., pantoprazole : -Monitor renal function closely. Place Galvan catheter. -IV Lasix and Aldactone as above ID: -Follow up on blood cultures sputum culture if available. Check influenza -Continue Zosyn and add Zyvox HEME: -Monitor CBC, CMP, coags ENDO: -Electrolyte replacement per protocol, sliding scale insulin PROPH: -Bilateral lower extremity SCDs. Lovenox, pantoprazole LINES: -Utilize peripheral IVs, central line if needed CC time 45 min Code Status Full Discussed Condition With Karmen Chavarria MD Jul 25, 2017 11:42
[2017-07-25] MEDS ORDERED: FUROSEMIDE 40 MG/4 ML VIAL ONE (11:47)
[2017-07-25] MEDS: FUROSEMIDE 20 MG/2 ML VIAL IV PUSH SCH ×2 (11:56→16:26)
[2017-07-25] MEDS: LINEZOLID 600 MG PREMIX 300 ML IV SCH (11:57)
[2017-07-25] MEDS ORDERED: MORPHINE SULFATE 2 MG/ML INJ IV PUSH PRN (12:00)
[2017-07-25] MEDS ORDERED: hydrALAZINE HCL 20 MG/ML VIAL IV PUSH PRN (12:00)
[2017-07-25] MEDS ORDERED: MAGNESIUM SULFATE INJ 4 GM in SODIUM CHLORIDE 0.9% INJ 92 ML IV PRN (12:15)
[2017-07-25] MEDS ORDERED: SODIUM PHOSPHATE INJ 30 MMOL in SODIUM CHLOR 0.9% 250 ML INJ 240 ML IV PRN (12:15)
[2017-07-25] MEDS ORDERED: MAGNESIUM OXIDE 400 MG TAB PO PRN (12:15)
[2017-07-25] MEDS ORDERED: POTASSIUM PHOSPHATE INJ 30 MMOL in SODIUM CHLOR 0.9% 250 ML INJ 250 ML IV PRN (12:15)
[2017-07-25] MEDS ORDERED: POTASSIUM CHLORIDE 25 MEQ EFFERVESCENT TAB PO PRN (12:15)
[2017-07-25] MEDS ORDERED: POTASSIUM CHLOR 20 MEQ PREMIX 100 ML IV PRN ×2 (12:15)
[2017-07-25] MEDS ORDERED: MAGNESIUM SULFATE INJ 2 GM in SODIUM CHLORIDE 0.9% INJ 96 ML IV PRN (12:15)
[2017-07-25] MEDS ORDERED: POTASSIUM CHLOR 40 MEQ PREMIX 100 ML IV PRN ×2 (12:15)
[2017-07-25] MEDS ORDERED: POTASSIUM PHOSPHATE MONOBASIC 500 MG TAB PO/TUBE PRN (12:15)
[2017-07-25] MEDS ORDERED: POTASSIUM PHOSPHATE MONOBASIC 500 MG TAB PO PRN (12:15)
[2017-07-25] MEDS: SPIRONOLACTONE 25 MG TAB PO SCH (12:15)
[2017-07-25 15:49] LABS: MAGNESIUM 2.3 MG/DL (1.5-2.5); PHOSPHORUS 3.6 MG/DL (2.5-4.9)
[2017-07-25] MEDS: RESP: ALBUTEROL 2.5 MG/IPRATROPIUM 0.5 MG NEB (SCH) NEB ×2 (15:59→19:40)
[2017-07-25] MEDS: methylPREDNISolone SOD SUCC 125 MG/2 ML VIAL IV PUSH SCH ×2 (16:26→21:57)
[2017-07-25] MEDS ORDERED: LABETALOL HCL 100 MG/20 ML VIAL ONE (17:43)
[2017-07-25] MEDS: DONEPEZIL HCL 5 MG TAB PO SCH (21:00)
[2017-07-26] VITALS (16 sets, daily range): BP systolic 124–145; BP diastolic 59–88; PULSE 81–133; RESP 15–30; TEMP 97.2–98.2; O2SAT 94–100
[2017-07-26] MEDS: PIPERACIL-TAZO 3.375 GM PREMIX 50 ML IV SCH ×4 (03:34→20:55)
[2017-07-26] MEDS: methylPREDNISolone SOD SUCC 125 MG/2 ML VIAL IV PUSH SCH ×3 (05:22→16:58)
[2017-07-26 05:26] LABS: BASOPHIL % 0.3 % (0.0-2.0); HEMATOCRIT 32.1 % (35.0-46.0); LYMPH % 4.9 % (9.0-44.0); LYMPHOCYTE # 0.4 TH/MM3 (1.0-4.8); MEAN CELL VOLUME 94.1 FL (80.0-100.0); MEAN CORPUSCULAR HEMOGLOBIN 32.1 PG (27.0-34.0); MEAN CORPUSCULAR HGB CONC 34.1 % (32.0-36.0); MEAN PLATELET VOLUME 8.6 FL (7.0-11.0); MONO % 3.9 % (0.0-8.0); MONOCYTE # 0.3 TH/MM3 (0-0.9); NEUT % 90.9 % (16.0-70.0); PLATELET COUNT 165 TH/MM3 (150-450); RED BLOOD COUNT 3.42 MIL/MM3 (4.00-5.30); RED CELL DISTRIBUTION WIDTH 13.7 % (11.6-17.2); WHITE BLOOD COUNT 7.7 TH/MM3 (4.0-11.0)
[2017-07-26 05:40] LABS: BICARBONATE 24.2 MEQ/L (21.0-32.0); CALCIUM 8.5 MG/DL (8.5-10.1); CREATININE 1.41 MG/DL (0.50-1.00)
[2017-07-26] MEDS: RESP: ALBUTEROL 2.5 MG/IPRATROPIUM 0.5 MG NEB (SCH) NEB ×3 (08:34→19:56)
[2017-07-26] MEDS: DOCUSATE SODIUM 50 MG/SENNA 8.6 MG TAB PO SCH ×2 (09:00→20:56)
--- NOTE | 2017-07-26 09:50 | HHI.PR ---
Subjective Remarks Pt overall is feeling better this morning. She reports that the nausea is improved She does not feel SOB but is requiring 4L of supplemental O2 She is noted to be in A. fib RVR with HR in the 130-150s Objective Vitals Vital Signs Date Time Temp Pulse Resp B/P (MAP) Pulse Ox O2 Delivery O2 Flow Rate FiO2 07/26/17 08:35 98 Nasal Cannula 4.00 07/26/17 06:00 119 07/26/17 04:03 100 30 07/26/17 04:00 119 07/26/17 04:00 100 Bi-Pap 30 07/26/17 04:00 97.2 119 20 124/74 (91) 99 07/26/17 02:00 113 07/26/17 01:10 100 30 07/26/17 00:00 97.6 117 20 140/65 (90) 100 07/26/17 00:00 103 07/26/17 00:00 100 Bi-Pap 30 07/25/17 22:32 100 30 07/25/17 22:00 120 07/25/17 20:00 100 Bi-Pap 30 07/25/17 20:00 97.7 117 20 137/72 (93) 100 07/25/17 20:00 102 07/25/17 19:40 100 30 07/25/17 16:01 100 30 07/25/17 16:00 97.8 65 18 196/83 (120) 100 07/25/17 12:00 98.1 62 18 151/67 (95) 99 07/25/17 11:15 98 35 07/25/17 10:10 94 5.00 Result Diagram: 07/26/17 0455 07/26/17 0455 Other Results Laboratory Tests Test 07/25/17 07:26 07/25/17 08:24 07/25/17 10:20 07/25/17 12:40 White Blood Count 9.4 TH/MM3 Red Blood Count 3.41 MIL/MM3 Hemoglobin 11.0 GM/DL Hematocrit 32.5 % Mean Corpuscular Volume 95.5 FL Mean Corpuscular Hemoglobin 32.3 PG Mean Corpuscular Hemoglobin Concent 33.9 % Red Cell Distribution Width 14.3 % Platelet Count 172 TH/MM3 Mean Platelet Volume 8.8 FL Neutrophils (%) (Auto) 88.1 % Lymphocytes (%) (Auto) 5.1 % Monocytes (%) (Auto) 6.3 % Eosinophils (%) (Auto) 0.3 % Basophils (%) (Auto) 0.2 % Neutrophils # (Auto) 8.3 TH/MM3 Lymphocytes # (Auto) 0.5 TH/MM3 Monocytes # (Auto) 0.6 TH/MM3 Eosinophils # (Auto) 0.0 TH/MM3 Basophils # (Auto) 0.0 TH/MM3 CBC Comment DIFF FINAL Differential Comment Blood Urea Nitrogen 37 MG/DL Creatinine 1.36 MG/DL Random Glucose 220 MG/DL Calcium Level 8.6 MG/DL Magnesium Level 2.3 MG/DL Sodium Level 135 MEQ/L Potassium Level 4.4 MEQ/L Chloride Level 103 MEQ/L Carbon Dioxide Level 23.7 MEQ/L Anion Gap 8 MEQ/L Estimat Glomerular Filtration Rate 37 ML/MIN B-Type Natriuretic Peptide 668 PG/ML Stool C. difficile Toxin (PCR) NEGATIVE Stl C. difficile Toxin Epiderm 027 PRESUMPTIVE NEGATIVE Blood Gas Puncture Site LT RADIAL RT RADIAL Blood Gas Patient Temperature 98.6 98.6 Blood Gas HCO3 22 mmol/L 22 mmol/L Blood Gas Base Excess -5.9 mmol/L -3.3 mmol/L Blood Gas Oxygen Saturation 94 % 95 % Arterial Blood pH 7.14 7.31 Arterial Blood Partial Pressure CO2 67 mmHg 45 mmHg Arterial Blood Partial Pressure O2 92 mmHg 92 mmHg Arterial Blood Oxygen Content 15.8 Vol % 14.7 Vol % Arterial Blood Carboxyhemoglobin 0.8 % 0.9 % Arterial Blood Methemoglobin 0.7 % 1.0 % Blood Gas Hemoglobin 11.9 G/DL 10.9 G/DL Oxygen Delivery Device NASAL CANNULA BIPAP Blood Gas Liter Flow 5 L/M Blood Gas Ventilator Setting IPAP 10/EPAP 5 Blood Gas Inspired Oxygen 30 % Test 07/25/17 12:41 07/25/17 14:55 07/26/17 04:55 Lactic Acid Level 1.7 mmol/L Potassium Level 4.8 MEQ/L 4.0 MEQ/L Phosphorus Level 3.6 MG/DL Magnesium Level 2.3 MG/DL 2.0 MG/DL White Blood Count 7.7 TH/MM3 Red Blood Count 3.42 MIL/MM3 Hemoglobin 11.0 GM/DL Hematocrit 32.1 % Mean Corpuscular Volume 94.1 FL Mean Corpuscular Hemoglobin 32.1 PG Mean Corpuscular Hemoglobin Concent 34.1 % Red Cell Distribution Width 13.7 % Platelet Count 165 TH/MM3 Mean Platelet Volume 8.6 FL Neutrophils (%) (Auto) 90.9 % Lymphocytes (%) (Auto) 4.9 % Monocytes (%) (Auto) 3.9 % Eosinophils (%) (Auto) 0.0 % Basophils (%) (Auto) 0.3 % Neutrophils # (Auto) 7.0 TH/MM3 Lymphocytes # (Auto) 0.4 TH/MM3 Monocytes # (Auto) 0.3 TH/MM3 Eosinophils # (Auto) 0.0 TH/MM3 Basophils # (Auto) 0.0 TH/MM3 CBC Comment DIFF FINAL Differential Comment Blood Urea Nitrogen 34 MG/DL Creatinine 1.41 MG/DL Random Glucose 160 MG/DL Calcium Level 8.5 MG/DL Sodium Level 138 MEQ/L Chloride Level 104 MEQ/L Carbon Dioxide Level 24.2 MEQ/L Anion Gap 10 MEQ/L Estimat Glomerular Filtration Rate 35 ML/MIN Imaging Last Impressions Chest X-Ray 07/25/17 0000 Signed Impressions: Service Date/Time: Tuesday, July 25, 2017 10:36 - CONCLUSION: Abnormal interstitial opacities bilaterally with right lower lung zone airspace consolidation. The pattern could represent interstitial and airspace pulmonary edema. Infection is less likely given the distribution but also possible. Maged Hedrick MD Last 24 hours Impressions Chest X-Ray 07/23/17 1643 Signed Impressions: Service Date/Time: Sunday, July 23, 2017 17:04 - CONCLUSION: 1. Stable chest x-ray without acute cardiopulmonary abnormality identified. 2. Stable abnormal but nonspecific changes of the bilateral humeri. Maged Hedrick MD Objective Remarks General: NAD, AAOx3 Chest: CTA bilaterally Cardiac: Irregular, tachy Abd: +BS, soft ND/NT Ext: No edema A/P Problem List: (1) Fever ICD Codes: R50.9 - Fever, unspecified Status: Acute Plan: Generalized weakness Fevers Leukocytosis - Pt 87 y/o female with HTN, hyperlipidemia, diabetes, CKD, stage 3, and memory loss who was initially admitted to [facility] on 07/21/17 with increased weakness and fever. - Pt had oral surgery 07/19/27, and was told that she had an infected tooth that was removed. Pt was placed on Amoxicillin after that procedure. Two days later she developed increased generalized weakness and chills. Pt was noted to have a fever of 102 degrees at the time of that admission. - Blood cultures were drawn (07/21/17) which have NGTD. Pt tested negative for Influenza. CXR was negative - Maxillofacial CT (07/21) --> Subcutaneous air involving the right cheek and right temporal region consistent with the postoperative nature of this patient. No fluid collection or inflammatory/infectious abnormality. - Pt was given Zosyn. On 07/22 pt insisted on discharge to home and was discharged on Augmentin. - She returned to the ED on 07/23 with fevers and generalized weakness. - Repeat blood cultures were drawn on 07/23 with NGTD - She again tested negative for Influenza. - The etiology for her symptoms is unclear, possibly secondary to her dental infection vs. viral illness vs.C. diff vs. other. - Zosyn was resumed at admission. - Zyvox was added on 07/25 - 2D echo (07/25/17): - Technically difficult study. - Estimated ejection fraction in the range of 30-35%. - [id number] mitral valve regurgitation. - Aortic valve sclerosis is present. - Trace aortic valve regurgitation. - There is trace tricuspid valve regurgitation. - The estimated pulmonary arterial pressure is 26.2 mmHg. - Pt had some loose stools, check stool culture and C. diff are negative - Zofran PRN - PT evaluation. - Supportive care SOB Hx of tobacco use - Pt had [facility] called for SOB on 07/25 - Pt with some noted wheezing - Duonebs one STAT and Q6H WA - ABG (07/25) --> pH 7.14, CO2 67 - Pt started on IV Solu-Medrol, Duonebs, and pt was started on BiPAP - CXR (07/25) --> Abnormal interstitial opacities bilaterally with right lower lung zone airspace consolidation. The pattern could represent interstitial and airspace pulmonary edema. Infection is less likely given the distribution but also possible. - Pt was started on IV Lasix 20mg IV BID - Monitor clinical status closely A. fib RVR - Pt developed A. fib with RVR on 07/25 - Her HR on telemetry is noted to be in the 130-150's - Start Cardizem gtt - Change Procardia XL to Cardizem 60mg Q6H - Cont. Atenolol for now - Cont. telemetry monitoring. HTN - BP on monitor in the room with systolic BP in the 180s this morning. - Clonidine and vasotec PRN Hyperglycemia - Hgb A1C 6.3% - NovoLog SSI - Accu checks Tremor - Home meds continued (2) Generalized weakness ICD Codes: R53.1 - Weakness Status: Acute (3) HTN (hypertension) ICD Codes: I10 - Essential (primary) hypertension Status: Chronic (4) Diabetes mellitus ICD Codes: E11.9 - Type 2 diabetes mellitus without complications Status: Chronic (5) Tremor ICD Codes: R25.1 - Tremor Status: Chronic (6) Dental infection ICD Codes: K04.7 - Periapical abscess without sinus Status: Acute (7) Atrial fibrillation with RVR ICD Codes: I48.91 - Unspecified atrial fibrillation Assessment and Plan Patient examined. Assessment and plan formulated with Tricia Mcallister PA-C. I agree with the above. Problem Qualifiers (1) Fever: Qualified Codes: R50.9 - Fever, unspecified Tricia Mcallister Jul 26, 2017 09:50 Charles Herman DO Jul 26, 2017 18:58
[2017-07-26] MEDS: ATENOLOL 50 MG TAB PO SCH (09:51)
[2017-07-26] MEDS: CALCIUM/VITAMIN D 250 MG/125 U TAB PO SCH ×2 (09:51→20:56)
[2017-07-26] MEDS: SPIRONOLACTONE 25 MG TAB PO SCH ×2 (09:52→16:58)
[2017-07-26] MEDS: PRAVASTATIN SOD 20 MG TAB PO SCH (09:52)
[2017-07-26] MEDS: SODIUM CHLORIDE 0.9% FLUSH 10 ML FLUSH IV FLUSH SCH ×2 (09:53→20:57)
[2017-07-26] MEDS: PRIMIDONE 50 MG TAB PO SCH ×2 (09:53→20:57)
[2017-07-26] MEDS: FUROSEMIDE 20 MG/2 ML VIAL IV PUSH SCH ×2 (09:53→16:57)
[2017-07-26] MEDS: LORATADINE 10 MG TAB PO SCH (09:53)
[2017-07-26] MEDS: PANTOPRAZOLE SOD 20 MG DELAYED RELEASE TAB PO SCH (09:53)
[2017-07-26] MEDS: INSULIN ASPART SUPPLEMENTAL SCALE SQ SCH ×4 (09:53→21:07)
[2017-07-26] MEDS ORDERED: DILTIAZEM INJ 125 MG in SODIUM CHLORIDE 0.9% INJ 100 ML IV PRN (10:00)
[2017-07-26] MEDS: ENOXAPARIN SODIUM 40 MG/0.4 ML SYRINGE SQ SCH (11:44)
[2017-07-26] MEDS: LINEZOLID 600 MG PREMIX 300 ML IV SCH ×3 (11:44→20:55)
[2017-07-26] MEDS: DILTIAZEM HCL 60 MG TAB PO SCH ×2 (11:44→16:58)
[2017-07-26] MEDS ORDERED: DIGOXIN 0.5 MG/2 ML VIAL IV PUSH ONE (14:00)
[2017-07-26] MEDS ORDERED: RESP: ALBUTEROL 2.5 MG/3 ML NEB (PRN) NEB (14:00)
--- NOTE | 2017-07-26 14:13 | HHI.CCPN ---
Subjective Remarks/Hospital Course Patient is an 87-year-old female with past medical history of probable COPD, hypertension, dyslipidemia, diabetes, chronic kidney disease stage III, memory loss, recent echo 07/23/2017 showing cardiomyopathy EF 30-35% was admitted to [facility] service on 07/23/2017. Apparently patient had infected tooth that was removed last Tuesday, and was placed on Amoxicillin. Patient was admitted 07/21 to the hospitalist service with high fever up to 102 and no clear source of infection. CT maxillofacial showed previous surgery but no abscess. She patient did not want to stay in hospital and was discharged on 07/22. Presented with similar symptoms again on 07/23/2017, and for probable sepsis was placed on Zosyn. Today patient developed acute respiratory decompensation, with labored breathing and hypoxia. Patient's ABG on 5 L nasal cannula showed pH of 7.14 base excess -6 PCO2 of 67 and PO2 92. Stat chest x- ray showed bilateral interstitial infiltrates and right lower lobe pneumonia. Patient was moved to the ICU and critical care medicine was consulted I immediately evaluated the patient in the ICU. She is in severe respiratory distress tachypneic using accessory muscles. Immediately placed on BiPAP 10/5 IV Solu-Medrol 1 stat DuoNeb also ordered. Review of echo done on 07/23/2017 shows EF of 30-35%. Chest x-ray shows pulmonary edema as well as pneumonia. I added Zyvox also added IV Lasix 20 mg every 12, Aldactone 25 mg po BID. Patient expressed wishes not to be intubated or resuscitated and I have changed her CODE STATUS to DNR Subjective 07/26: Resting in bed in no acute distress. Currently on 4 L nasal cannula. Diuresed using furosemide and spironolactone. Currently in atrial fibrillation with rapid ViscoSpot currently on a diltiazem drip. We will add digoxin Objective Vital Signs Date Time Temp Pulse Resp B/P (MAP) Pulse Ox O2 Delivery O2 Flow Rate FiO2 07/26/17 08:35 98 Nasal Cannula 4.00 07/26/17 06:00 119 07/26/17 04:03 30 07/26/17 04:00 97.2 20 124/74 (91) Intake and Output 07/26/17 07/26/17 07/27/17 08:00 16:00 00:00 Output Total 850 ml Balance -850 ml Result Diagram: 07/26/17 0455 07/26/17 0455 Other Results Microbiology Date/Time Source Procedure Growth Status 07/23/17 16:48 Blood Peripheral Aerobic Blood Culture - Preliminary NO GROWTH IN 3 DAYS Resulted 07/23/17 16:48 Blood Peripheral Anaerobic Blood Culture - Preliminary NO GROWTH IN 3 DAYS Resulted 07/23/17 16:46 Nasal Washing Influenza Types A,B Antigen (FACUNDO) - Final NEGATIVE FOR FLU A AND B ANTIGEN.... Complete Imaging Last Impressions Chest X-Ray 07/25/17 0000 Signed Impressions: Service Date/Time: Tuesday, July 25, 2017 10:36 - CONCLUSION: Abnormal interstitial opacities bilaterally with right lower lung zone airspace consolidation. The pattern could represent interstitial and airspace pulmonary edema. Infection is less likely given the distribution but also possible. Maged Hedrick MD Objective Remarks GENERAL: 87-year-old female resting in bed in no acute distress SKIN: Warm and dry. HEAD: Atraumatic. Normocephalic. EYES: Pupils equal and round. No scleral icterus. No injection or drainage. ENT: No nasal bleeding or discharge. Mucous membranes pink and moist. NECK: Trachea midline. No JVD. CARDIOVASCULAR: McCarte, IR. S1, S2 no S4 without murmur RESPIRATORY: No accessory muscle use. Clear to auscultation. Breath sounds equal bilaterally. GASTROINTESTINAL: Abdomen soft, non-tender, nondistended. Hypoactive bowel sounds are appreciated MUSCULOSKELETAL: Extremities with trace lower extremity edema. No obvious deformities. NEUROLOGICAL: Awake and alert. No obvious cranial nerve deficits. Motor grossly within normal limits. 4 out of 5 muscle strength in the arms and legs. Tremulous A/P Assessment and Plan NEURO/PSYCH: Dementia disorder NOS Depression/anxiety Essential tremor Restless leg syndrome Allergic rhinitis Continue donepezil 5 mg p.o. daily Holding fluoxetine 10 mg p.o. daily Continue primidone 50 mg p.o. twice daily Acetaminophen 650 mg p.o. every 4 hours as needed fever/pain 1-4 -Morphine 2 mg IV every 3 hours as needed for pain 5 through 10 and anxiety Continue loratadine 10 mg p.o. daily for allergic rhinitis RESP: Acute hypoxemic and hypercapnic respiratory failure -resolving Right lower lobe pneumonia Acute COPD exacerbation Nasal cannula to maintain saturations greater than equal to 92% Incentive spirometry while awake Albuterol/ipratropium aerosols every 6 hours while awake with albuterol aerosols every 2 hours as needed dyspnea Methylprednisolone succinate 60 mg IV every 6 hours Follow-up chest x-ray in a.m. 07/27 -Patient refuses intubation -BiPAP 03/03 yesterday 07/26 CVS: Acute systolic heart failure ejection fraction 30-35% Essential hypertension Atrial fibrillation with rapid ventricular response Dyslipidemia Currently on diltiazem 60 mg p.o. every 6 hours along with diltiazem drip EKG currently pending 2D echocardiogram to revealed EF 30-35%. Decrease left ventricular systolic function. Moderate MR. PAP 26.2 mmHg Currently in furosemide 20 mg IV twice daily with spironolactone 25 mg p.o. twice daily Continue with pravastatin 20 mg p.o. daily. Medication is lovastatin 20 mg p.o. daily for dyslipidemia Check TSH in a.m. Serial troponins Follow-up digoxin 0.25 mg IV every 6 hours 2 with level to be checked in a.m. Home medications for hypertension include atenolol 50 mg daily, nifedipine 30 mg daily, lisinopril 20 mg daily GI: Gastroesophageal reflux disease Advance diet as tolerated/ADA Pantoprazole 20 mg p.o. daily/home medication is omeprazole 20 mg p.o. daily Docusate sodium/senna 1 tablet p.o. twice daily bowel regimen Renal/: Chronic kidney disease stage IIIa -Monitor renal function closely. Place Galvan catheter. -I follow BMP/CBC in a.m. ID: Possible HCAP -Follow up on blood cultures sputum culture 07/23 on both influenza a and B 07/23 no growth to date -Continue to Piperacillin /tazobactam with Linezolid day #2 HEME: Normocytic anemia -Monitor CBC, CMP, coags ENDO: Diabetes mellitus polyneuropathy hemoglobin A1c 6.3 Sliding-scale insulin with Novulog with Accu-Cheks before meals/at bedtime to maintain euglycemia/low regimen Check TSH in a.m. -Electrolyte replacement per ICU electrolyte protocol MSK: Carpal tunnel syndrome PT evaluate and treat Continue calcium with vitamin D 200/250 1 tablet twice daily PROPH: -Bilateral lower extremity SCDs. Enoxaparin, pantoprazole LINES: -Utilize peripheral IVs, central line if needed Level 2 follow-up D/W Damien Hernández, care plan discussed and all ?s answered. Requests [facility] cardiology eval for afib and new CHF w/no history Tommy Pond MD Jul 26, 2017 14:13
[2017-07-26] MEDS ORDERED: DIGOXIN 0.5 MG/2 ML VIAL IV PUSH SCH (20:00)
[2017-07-26] MEDS: DONEPEZIL HCL 5 MG TAB PO SCH (20:57)
[2017-07-26] MEDS: ACETAMINOPHEN 325 MG TAB PO PRN (21:02)
--- NOTE | 2017-07-26 22:49 | EKG ---
Date Performed: 07/25/2017 Time Performed: 13:41:29 PTAGE: 87 years EKG: Sinus rhythm NORMAL ECG PREVIOUS TRACING : 07/23/2017 16.15 Compared to prior tracing, A FIB NO LONGER PRESENT DOCTOR: Faina Burgos Interpretating Date/Time 07/26/2017 22:47:48
[2017-07-26 23:45] LABS: ALBUMIN 2.4 GM/DL (3.4-5.0); AST (GOT) 16 U/L (15-37); BICARBONATE 26.7 MEQ/L (21.0-32.0); BLOOD UREA NITROGEN 41 MG/DL (7-18); CALCIUM 8.2 MG/DL (8.5-10.1); CHLORIDE 101 MEQ/L (98-107); CHOLESTEROL 138 MG/DL (120-200); CREATININE 1.67 MG/DL (0.50-1.00); GLOMERULAR FILTRATION RATE 29 ML/MIN (>89); GLUCOSE,RANDOM 248 MG/DL (74-106); MAGNESIUM 1.8 MG/DL (1.5-2.5); SODIUM (NA) 138 MEQ/L (136-145)
[2017-07-27] VITALS (14 sets, daily range): BP systolic 136–188; BP diastolic 63–88; PULSE 62–143; RESP 17–38; TEMP 97.7–98.6; O2SAT 94–100
[2017-07-27] LABS: ALKALINE PHOSPHATASE 56 U/L (45-117); ALT (GPT) 21 U/L (10-53); CHOLESTEROL/ HDL RATIO 3.52 RATIO; DIGOXIN 0.8 NG/ML (0.8-2.0); HDL CHOLESTEROL 39.1 MG/DL (40.0-60.0); LDL CHOLESTEROL 87 MG/DL (0-99); PHOSPHORUS 3.2 MG/DL (2.5-4.9); TOTAL BILIRUBIN ADULT 0.1 MG/DL (0.2-1.0); TOTAL PROTEIN 6.2 GM/DL (6.4-8.2); TRIGLYCERIDES 62 MG/DL (42-150); TROPONIN I LESS THAN 0.02 NG/ML (0.02-0.05)
[2017-07-27] MEDS: PIPERACIL-TAZO 3.375 GM PREMIX 50 ML IV SCH ×2 (04:00→08:28)
[2017-07-27] MEDS: DILTIAZEM HCL 60 MG TAB PO SCH (05:56)
[2017-07-27] MEDS: methylPREDNISolone SOD SUCC 125 MG/2 ML VIAL IV PUSH SCH ×4 (05:56→20:24)
[2017-07-27 07:25] LABS: BASOPHIL % 0.1 % (0.0-2.0); HEMATOCRIT 29.1 % (35.0-46.0); LYMPH % 3.2 % (9.0-44.0); LYMPHOCYTE # 0.3 TH/MM3 (1.0-4.8); MEAN CELL VOLUME 93.6 FL (80.0-100.0); MEAN CORPUSCULAR HGB CONC 34.2 % (32.0-36.0); MEAN PLATELET VOLUME 8.6 FL (7.0-11.0); MONO % 1.5 % (0.0-8.0); MONOCYTE # 0.1 TH/MM3 (0-0.9); NEUT % 95.2 % (16.0-70.0); PLATELET COUNT 198 TH/MM3 (150-450); RED BLOOD COUNT 3.11 MIL/MM3 (4.00-5.30); RED CELL DISTRIBUTION WIDTH 13.5 % (11.6-17.2); WHITE BLOOD COUNT 8.4 TH/MM3 (4.0-11.0)
[2017-07-27] MEDS: RESP: ALBUTEROL 2.5 MG/IPRATROPIUM 0.5 MG NEB (SCH) NEB ×3 (08:13→19:29)
[2017-07-27] MEDS: PANTOPRAZOLE SOD 20 MG DELAYED RELEASE TAB PO SCH (08:26)
[2017-07-27] MEDS: LORATADINE 10 MG TAB PO SCH (08:26)
[2017-07-27] MEDS: CALCIUM/VITAMIN D 250 MG/125 U TAB PO SCH ×2 (08:26→20:21)
[2017-07-27] MEDS: PRAVASTATIN SOD 20 MG TAB PO SCH (08:26)
[2017-07-27] MEDS: PRIMIDONE 50 MG TAB PO SCH ×2 (08:26→20:21)
[2017-07-27] MEDS: ATENOLOL 50 MG TAB PO SCH (08:27)
[2017-07-27] MEDS: SPIRONOLACTONE 25 MG TAB PO SCH ×2 (08:27→17:04)
[2017-07-27] MEDS: INSULIN ASPART SUPPLEMENTAL SCALE SQ SCH ×4 (08:28→20:22)
[2017-07-27] MEDS: DOCUSATE SODIUM 50 MG/SENNA 8.6 MG TAB PO SCH ×2 (08:28→20:21)
[2017-07-27] MEDS: SODIUM CHLORIDE 0.9% FLUSH 10 ML FLUSH IV FLUSH SCH ×2 (08:28→20:20)
--- NOTE | 2017-07-27 11:07 | RADRPT ---
EXAM DATE/TIME: 07/27/2017 10:31 [place] COMPARISON: CHEST SINGLE AP, July 25, 2017, 10:36. INDICATIONS : Dyspnea. MEDICAL HISTORY : Cardiovascular disease. SURGICAL HISTORY : None. ENCOUNTER: Subsequent ACUITY: 1 week PAIN SCORE: 0/10 LOCATION: Bilateral chest FINDINGS: There has been improvement in aeration with continued or clearance of perihilar and basilar infiltrat es. The lungs are now nearly clear. No significant effusion is present. Cardiac contours are satisfac tory for technique and projection. CONCLUSION: Continued improvement in aeration. Maged Booker MD on July 27, 2017 at 11:05 Board Certified Radiologist. This report was verified electronically.
[2017-07-27] MEDS: DILTIAZEM HCL 90 MG TAB PO SCH ×2 (12:31→17:04)
[2017-07-27] MEDS: LINEZOLID 600 MG PREMIX 300 ML IV SCH (12:31)
[2017-07-27] MEDS: ENOXAPARIN SODIUM 40 MG/0.4 ML SYRINGE SQ SCH (12:32)
[2017-07-27] MEDS ORDERED: POTASSIUM CHLORIDE 20 MEQ CONTROLLED RELEASE TAB PO ONE (12:45)
[2017-07-27] MEDS ORDERED: DIGOXIN 0.5 MG/2 ML VIAL IV PUSH ONE (12:45)
[2017-07-27] MEDS ORDERED: INSULIN DETEMIR 100 UNITS/ML VIAL SQ ONE (12:45)
--- NOTE | 2017-07-27 12:50 | HHI.CCPN ---
Subjective Remarks/Hospital Course Patient is an 87-year-old female with past medical history of probable COPD, hypertension, dyslipidemia, diabetes, chronic kidney disease stage III, memory loss, recent echo 07/23/2017 showing cardiomyopathy EF 30-35% was admitted to [facility] service on 07/23/2017. Apparently patient had infected tooth that was removed last Tuesday, and was placed on Amoxicillin. Patient was admitted 07/21 to the hospitalist service with high fever up to 102 and no clear source of infection. CT maxillofacial showed previous surgery but no abscess. She patient did not want to stay in hospital and was discharged on 07/22. Presented with similar symptoms again on 07/23/2017, and for probable sepsis was placed on Zosyn. Today patient developed acute respiratory decompensation, with labored breathing and hypoxia. Patient's ABG on 5 L nasal cannula showed pH of 7.14 base excess -6 PCO2 of 67 and PO2 92. Stat chest x- ray showed bilateral interstitial infiltrates and right lower lobe pneumonia. Patient was moved to the ICU and critical care medicine was consulted I immediately evaluated the patient in the ICU. She is in severe respiratory distress tachypneic using accessory muscles. Immediately placed on BiPAP 10/5 IV Solu-Medrol 1 stat DuoNeb also ordered. Review of echo done on 07/23/2017 shows EF of 30-35%. Chest x-ray shows pulmonary edema as well as pneumonia. I added Zyvox also added IV Lasix 20 mg every 12, Aldactone 25 mg po BID. Patient expressed wishes not to be intubated or resuscitated and I have changed her CODE STATUS to DNR 07/26: Resting in bed in no acute distress. Currently on 4 L nasal cannula. Diuresed using furosemide and spironolactone. Currently in atrial fibrillation with rapid ViscoSpot currently on a diltiazem drip. We will add digoxin Subjective 07/27: Currently 1.5 L nasal cannula. Heart rate controlled between 80 and 100. Initiated on diltiazem 90 mg p.o. every 6 hours attempt to wean off drip. Digoxin level 0.8. Replacing magnesium and potassium currently. Appears comfortable. Objective Vital Signs Date Time Temp Pulse Resp B/P (MAP) Pulse Ox O2 Delivery O2 Flow Rate FiO2 07/27/17 10:25 116 205/75 07/27/17 08:13 96 Nasal Cannula 3.00 07/27/17 08:00 98.1 37 07/26/17 08:00 30 Intake and Output 07/27/17 07/27/17 07/27/17 07:59 15:59 23:59 Output Total 800 ml Balance -800 ml Result Diagram: 07/27/17 0700 07/26/17 2227 Other Results Microbiology Date/Time Source Procedure Growth Status 07/23/17 16:48 Blood Peripheral Aerobic Blood Culture - Preliminary NO GROWTH IN 4 DAYS Resulted 07/23/17 16:48 Blood Peripheral Anaerobic Blood Culture - Preliminary NO GROWTH IN 4 DAYS Resulted 07/23/17 16:46 Nasal Washing Influenza Types A,B Antigen (FACUNDO) - Final NEGATIVE FOR FLU A AND B ANTIGEN.... Complete Imaging Last Impressions Chest X-Ray 07/27/17 0000 Signed Impressions: Service Date/Time: Thursday, July 27, 2017 10:31 - CONCLUSION: Continued improvement in aeration. Maged Booker MD Objective Remarks GENERAL: 87-year-old female resting in bed in no acute distress SKIN: Warm and dry. HEAD: Atraumatic. Normocephalic. EYES: Pupils equal and round. No scleral icterus. No injection or drainage. ENT: No nasal bleeding or discharge. Mucous membranes pink and moist. NECK: Trachea midline. No JVD. CARDIOVASCULAR: McCarte, IR. S1, S2 no S4 without murmur RESPIRATORY: No accessory muscle use. Clear to auscultation. Breath sounds equal bilaterally. GASTROINTESTINAL: Abdomen soft, non-tender, nondistended. Hypoactive bowel sounds are appreciated MUSCULOSKELETAL: Extremities with trace lower extremity edema. No obvious deformities. NEUROLOGICAL: Awake and alert. No obvious cranial nerve deficits. Motor grossly within normal limits. 4 out of 5 muscle strength in the arms and legs. Tremulous A/P Assessment and Plan NEURO/PSYCH: Dementia disorder NOS Depression/anxiety Essential tremor Restless leg syndrome Allergic rhinitis Continue donepezil 5 mg p.o. daily Holding fluoxetine 10 mg p.o. daily Continue primidone 50 mg p.o. twice daily Acetaminophen 650 mg p.o. every 4 hours as needed fever/pain 1-4 -Morphine 2 mg IV every 3 hours as needed for pain 5 through 10 and anxiety Continue loratadine 10 mg p.o. daily for allergic rhinitis RESP: Acute hypoxemic and hypercapnic respiratory failure -resolving Right lower lobe pneumonia Acute COPD exacerbation Nasal cannula to maintain saturations greater than equal to 92%. Currently on 1.5 L Incentive spirometry while awake Albuterol/ipratropium aerosols every 6 hours while awake with albuterol aerosols every 2 hours as needed dyspnea Methylprednisolone succinate 60 mg IV every 8 hours Follow-up chest x-ray in a.m. 07/27 -Patient refuses intubation -BiPAP 03/03 yesterday 07/26 CVS: Acute systolic heart failure ejection fraction 30-35% Essential hypertension Atrial fibrillation with rapid ventricular response Dyslipidemia Currently on diltiazem 90 mg p.o. every 6 hours along with diltiazem drip currently at 10 mg an hour Added isosorbide dinitrate 10 mg 3 times daily and hydralazine 25 mg 3 times daily for BP control 2D echocardiogram to revealed EF 30-35%. Decrease left ventricular systolic function. Moderate MR. PAP 26.2 mmHg Currently on spironolactone 25 mg p.o. twice daily Continue with pravastatin 20 mg p.o. daily. Medication is lovastatin 20 mg p.o. daily for dyslipidemia Check TSH in a.m. Serial troponins Follow-up digoxin 0.25 mg IV 1 now. Level 0.8 this a.m. Home medications for hypertension include atenolol 50 mg daily, nifedipine 30 mg daily, lisinopril 20 mg daily GI: Gastroesophageal reflux disease Advance diet as tolerated/ADA Pantoprazole 20 mg p.o. daily/home medication is omeprazole 20 mg p.o. daily Docusate sodium/senna 1 tablet p.o. twice daily bowel regimen Renal/: Chronic kidney disease stage IIIa -Monitor renal function closely. - Galvan catheter. - Follow BMP/CBC in a.m. ID: Possible HCAP -Follow up on blood cultures sputum culture 07/23 on both influenza a and B 07/23 no growth to date -Continue to Piperacillin /tazobactam with Linezolid day #3 HEME: Normocytic anemia -Monitor CBC, CMP, coags ENDO: Diabetes mellitus polyneuropathy hemoglobin A1c 6.3 Hyperglycemia likely steroid induced Sliding-scale insulin with Novulog with Accu-Cheks before meals/at bedtime to maintain euglycemia/low regimen Check TSH in a.m. 0.692 -Electrolyte replacement per ICU electrolyte protocol -We will start on insulin detemir 10 units daily. First dose tonight MSK: Carpal tunnel syndrome PT evaluate and treat Continue calcium with vitamin D 200/250 1 tablet twice daily PROPH: -Bilateral lower extremity SCDs. Enoxaparin, pantoprazole LINES: -Utilize peripheral IVs, central line if needed Level 2 follow-up Tommy Pond MD Jul 27, 2017 12:50
[2017-07-27] MEDS: ISOSORBIDE DINITRATE 10 MG TAB PO SCH ×2 (13:49→20:23)
[2017-07-27] MEDS: hydrALAZINE HCL 25 MG TAB PO SCH ×2 (13:49→20:22)
[2017-07-27] MEDS: MAGNESIUM SULFATE 1 GM PREMIX 100 ML IV SCH ×2 (13:49→15:05)
[2017-07-27] MEDS: PIPERACILLIN/TAZ 2.25 GM VIAL 2.25 GM in SODIUM CHLORIDE 0.9% INJ 50 ML IV SCH ×2 (15:42→20:19)
[2017-07-27] MEDS: INSULIN DETEMIR 100 UNITS/ML VIAL SQ SCH (20:21)
[2017-07-27] MEDS: DONEPEZIL HCL 5 MG TAB PO SCH (20:21)
[2017-07-28] VITALS (14 sets, daily range): BP systolic 137–177; BP diastolic 66–80; PULSE 62–79; RESP 15–19; TEMP 97.5–97.9; O2SAT 96–100
[2017-07-28] MEDS: LINEZOLID 600 MG PREMIX 300 ML IV SCH ×2 (00:01→11:23)
[2017-07-28] MEDS: DILTIAZEM HCL 90 MG TAB PO SCH ×5 (00:01→23:57)
[2017-07-28] MEDS: ACETAMINOPHEN 325 MG TAB PO PRN (00:16)
[2017-07-28] MEDS: PIPERACIL-TAZO 2.25 GM PREMIX 50 ML IV SCH ×4 (02:32→20:31)
[2017-07-28] MEDS: methylPREDNISolone SOD SUCC 125 MG/2 ML VIAL IV PUSH SCH ×3 (02:33→20:31)
[2017-07-28] MEDS: ISOSORBIDE DINITRATE 10 MG TAB PO SCH ×3 (05:07→20:35)
[2017-07-28] MEDS: hydrALAZINE HCL 25 MG TAB PO SCH ×3 (05:07→20:34)
[2017-07-28 05:18] LABS: AUTOMATED NEUTROPHIL # 10.3 TH/MM3 (1.8-7.7); HEMATOCRIT 30.6 % (35.0-46.0); HEMOGLOBIN 10.4 GM/DL (11.6-15.3); LYMPH % 1.9 % (9.0-44.0); LYMPHOCYTE # 0.2 TH/MM3 (1.0-4.8); MEAN CELL VOLUME 93.6 FL (80.0-100.0); MEAN CORPUSCULAR HGB CONC 34.2 % (32.0-36.0); MEAN PLATELET VOLUME 8.6 FL (7.0-11.0); MONOCYTE # 0.1 TH/MM3 (0-0.9); NEUT % 97.1 % (16.0-70.0); PLATELET COUNT 244 TH/MM3 (150-450); RED BLOOD COUNT 3.27 MIL/MM3 (4.00-5.30); RED CELL DISTRIBUTION WIDTH 13.5 % (11.6-17.2); WHITE BLOOD COUNT 10.6 TH/MM3 (4.0-11.0)
[2017-07-28 05:30] LABS: BICARBONATE 26.8 MEQ/L (21.0-32.0); CALCIUM 8.6 MG/DL (8.5-10.1); CREATININE 1.64 MG/DL (0.50-1.00); MAGNESIUM 2.5 MG/DL (1.5-2.5); PHOSPHORUS 3.2 MG/DL (2.5-4.9)
[2017-07-28] MEDS: RESP: ALBUTEROL 2.5 MG/IPRATROPIUM 0.5 MG NEB (SCH) NEB ×3 (08:07→20:13)
[2017-07-28] MEDS: PRIMIDONE 50 MG TAB PO SCH ×2 (08:11→20:34)
[2017-07-28] MEDS: SODIUM CHLORIDE 0.9% FLUSH 10 ML FLUSH IV FLUSH SCH ×2 (08:11→20:33)
[2017-07-28] MEDS: CALCIUM/VITAMIN D 250 MG/125 U TAB PO SCH ×2 (08:11→20:35)
[2017-07-28] MEDS: LORATADINE 10 MG TAB PO SCH (08:11)
[2017-07-28] MEDS: SPIRONOLACTONE 25 MG TAB PO SCH ×2 (08:11→17:21)
[2017-07-28] MEDS: PRAVASTATIN SOD 20 MG TAB PO SCH (08:11)
[2017-07-28] MEDS: PANTOPRAZOLE SOD 20 MG DELAYED RELEASE TAB PO SCH (08:11)
[2017-07-28] MEDS: ATENOLOL 50 MG TAB PO SCH (08:12)
[2017-07-28] MEDS: INSULIN DETEMIR 100 UNITS/ML VIAL SQ SCH ×2 (08:12→20:36)
[2017-07-28] MEDS: INSULIN ASPART SUPPLEMENTAL SCALE SQ SCH ×4 (08:43→20:36)
[2017-07-28] MEDS: DOCUSATE SODIUM 50 MG/SENNA 8.6 MG TAB PO SCH ×2 (09:00→20:33)
--- NOTE | 2017-07-28 09:23 | PD.CARD.PN ---
Subjective Subjective Remarks No complaints. Denies dyspnea or chest pain Objective Medications Current Medications Medications (Trade) Dose Ordered Sig/Danis Route Start Time Stop Time Status Last Admin (Tenormin) 50 mg DAILY PO 07/24/17 09:00 07/28/17 08:12 (Aricept) 5 mg HS PO 07/23/17 21:00 07/27/17 20:21 (Prinivil) 20 mg DAILY PO 07/24/17 09:00 Future Hold 07/25/17 08:32 (Pravachol) 20 mg DAILY PO 07/24/17 09:00 07/28/17 08:11 (Mysoline) 50 mg BID PO 07/23/17 21:00 07/28/17 08:11 (Oscal-D 250-125) 250 mg BID PO 07/24/17 09:00 07/28/17 08:11 (Protonix) 20 mg DAILY PO 07/24/17 09:00 07/28/17 08:11 (Paxil) 10 mg DAILY PO 07/24/17 09:00 Future Hold 07/25/17 08:31 (NS Flush) 2 ml UNSCH PRN IV FLUSH 07/23/17 21:00 (NS Flush) 2 ml BID IV FLUSH 07/23/17 21:00 07/28/17 08:11 (Tylenol) 650 mg Q4H PRN PO 07/23/17 21:00 07/28/17 00:16 (Narcan Inj) 0.4 mg UNSCH PRN IV PUSH 07/23/17 21:00 (Amira-Colace) 1 tab BID PO 07/23/17 21:00 07/27/17 20:21 (Milk Of Magnesia Liq) 30 ml Q12H PRN PO 07/23/17 21:00 (Senokot) 17.2 mg Q12H PRN PO 07/23/17 21:00 (Dulcolax Supp) 10 mg DAILY PRN RECTAL 07/23/17 21:00 (Lactulose Liq) 30 ml DAILY PRN PO 07/23/17 21:00 (NovoLOG SUPPLEMENTAL SCALE) 1 ACHS SLIDING SCALE SQ 07/24/17 12:00 07/28/17 08:43 (Claritin) 10 mg DAILY PO 07/25/17 09:00 07/28/17 08:11 (Zofran Inj) 4 mg Q6H PRN IV 07/25/17 09:45 (Catapres) 0.1 mg Q6H PRN PO 07/25/17 09:45 (Duoneb Neb) 1 ampule Q6HR WHILE AWAKE NEB NEB 07/25/17 14:00 07/28/17 08:07 Linezolid 300 ml @ 300 mls/hr Q12H IV 07/25/17 12:00 07/28/17 00:01 (Apresoline Inj) 20 mg Q4H PRN IV PUSH 07/25/17 12:00 07/25/17 16:25 (Morphine Inj) 2 mg Q3H PRN IV PUSH 07/25/17 12:00 07/25/17 17:36 (Aldactone) 25 mg BID@,18 PO 07/25/17 12:15 07/28/17 08:11 Potassium Chloride 100 ml @ 50 mls/hr Q2H PRN IV 07/25/17 12:15 Potassium Chloride 100 ml @ 50 mls/hr Q2H PRN IV 07/25/17 12:15 (K-Lyte Cl Eff) 50 meq UNSCH PRN PO 07/25/17 12:15 Potassium Chloride 100 ml @ 25 mls/hr UNSCH PRN IV 07/25/17 12:15 Potassium Chloride 100 ml @ 50 mls/hr Q2H PRN IV 07/25/17 12:15 Magnesium Sulfate 4 gm/Sodium Chloride 100 ml @ 50 mls/hr UNSCH PRN IV 07/25/17 12:15 (Mag-Ox) 800 mg UNSCH PRN PO 07/25/17 12:15 Magnesium Sulfate 2 gm/Sodium Chloride 100 ml @ 50 mls/hr UNSCH PRN IV 07/25/17 12:15 (K-Phos) 2,000 mg Q4H PRN PO 07/25/17 12:15 Sodium Phosphate 30 mmol/Sodium Chloride 250 ml @ 42 mls/hr UNSCH PRN IV 07/25/17 12:15 (K-Phos) 2,000 mg UNSCH PRN PO/TUBE 07/25/17 12:15 Potassium Phosphate 30 mmol/ Sodium Chloride 260 ml @ 42 mls/hr UNSCH PRN IV 07/25/17 12:15 Diltiazem HCl 125 mg/Sodium Chloride 125 ml @ 5 mls/hr TITRATE PRN IV 07/26/17 10:00 07/27/17 10:25 (Albuterol Neb) 2.5 mg Q2HR NEB PRN NEB 07/26/17 14:00 (Isordil) 10 mg Q8HR PO 07/27/17 14:00 07/28/17 05:07 (Apresoline) 25 mg Q8HR PO 07/27/17 14:00 07/28/17 05:07 (Cardizem) 90 mg Q6HR PO 07/27/17 12:00 07/28/17 05:07 (SoluMEDROL INJ) 60 mg Q8H IV PUSH 07/27/17 20:00 07/28/17 02:33 (Levemir Inj) 5 units Q12HR SQ 07/27/17 21:00 07/28/17 08:12 (Lovenox Inj) 30 mg Q24H SQ 07/28/17 13:00 Piperacillin Sod/ Tazobactam Sod 50 ml @ 100 mls/hr Q6H IV 07/28/17 02:00 07/28/17 08:11 Vital Signs / I&O Vital Signs Date Time Temp Pulse Resp B/P (MAP) Pulse Ox O2 Delivery O2 Flow Rate FiO2 07/28/17 08:08 97 Nasal Cannula 1.50 07/28/17 06:00 66 07/28/17 04:00 66 07/28/17 04:00 100 Nasal Cannula 1.50 30 07/28/17 04:00 97.6 66 17 177/79 (111) 100 07/28/17 02:00 70 07/28/17 00:00 100 Nasal Cannula 1.50 30 07/28/17 00:00 97.7 72 15 152/73 (99) 100 07/28/17 00:00 72 07/27/17 22:00 70 07/27/17 20:00 100 Nasal Cannula 1.50 30 07/27/17 20:00 67 07/27/17 20:00 97.7 67 18 136/67 (90) 100 07/27/17 19:31 97 Nasal Cannula 1.50 07/27/17 18:00 62 07/27/17 16:00 98 Nasal Cannula 1.50 07/27/17 16:00 76 07/27/17 16:00 98.0 73 17 136/63 (87) 100 07/27/17 14:00 89 07/27/17 12:00 97 Nasal Cannula 1.50 07/27/17 12:00 98.3 85 21 150/68 (95) 100 07/27/17 12:00 85 07/27/17 10:25 116 205/75 07/27/17 10:00 117 I/O 07/27/17 07/27/17 07/27/17 07/28/17 07/28/17 07/28/17 07:00 15:00 23:00 07:00 15:00 23:00 Intake Total 450 ml 2741 ml 200 ml Output Total 800 ml 450 ml 554 ml Balance -800 ml 450 ml 2291 ml -354 ml Intake Oral 2500 ml 200 ml IV Total 450 ml 241 ml Output Urine Total 800 ml 450 ml 550 ml Stool Total 4 ml # Bowel Movements 0 2 Laboratory Laboratory Tests Test 07/27/17 12:18 07/28/17 04:30 Troponin I LESS THAN 0.02 NG/ML White Blood Count 10.6 TH/MM3 Red Blood Count 3.27 MIL/MM3 Hemoglobin 10.4 GM/DL Hematocrit 30.6 % Mean Corpuscular Volume 93.6 FL Mean Corpuscular Hemoglobin 32.0 PG Mean Corpuscular Hemoglobin Concent 34.2 % Red Cell Distribution Width 13.5 % Platelet Count 244 TH/MM3 Mean Platelet Volume 8.6 FL Neutrophils (%) (Auto) 97.1 % Lymphocytes (%) (Auto) 1.9 % Monocytes (%) (Auto) 1.0 % Eosinophils (%) (Auto) 0.0 % Basophils (%) (Auto) 0.0 % Neutrophils # (Auto) 10.3 TH/MM3 Lymphocytes # (Auto) 0.2 TH/MM3 Monocytes # (Auto) 0.1 TH/MM3 Eosinophils # (Auto) 0.0 TH/MM3 Basophils # (Auto) 0.0 TH/MM3 CBC Comment DIFF FINAL Differential Comment Blood Urea Nitrogen 43 MG/DL Creatinine 1.64 MG/DL Random Glucose 192 MG/DL Calcium Level 8.6 MG/DL Phosphorus Level 3.2 MG/DL Magnesium Level 2.5 MG/DL Sodium Level 136 MEQ/L Potassium Level 4.2 MEQ/L Chloride Level 99 MEQ/L Carbon Dioxide Level 26.8 MEQ/L Anion Gap 10 MEQ/L Estimat Glomerular Filtration Rate 30 ML/MIN Assessment and Plan Assessment and Plan HR well controlled. Will add lisinopril for better BP control. Check BMP in AM. OK to move to floor Olvin Contreras MD Jul 28, 2017 09:23
--- NOTE | 2017-07-28 11:00 | MB ---
cc: Olvin Contreras MD DATE OF CONSULT: HISTORY: This is an 87-year-old woman who was admitted to the hospital with acute shortness of breath. She apparently had a dental extraction done several days ago. Following that, she became very weak and unable to move and was noted to have a very high fever. She came to the emergency room where she was initially treated with antibiotics. She declined admission and went home, but came back to the hospital because of rather significant and extreme weakness. After her admission to the hospital, she had an episode of significant respiratory distress treated with nebulizer treatments and intravenous steroids with resolution. Following this, she did develop atrial fibrillation with a rapid ventricular response and we have been asked to see her. No chest pain has been present. She has had no prior history of heart disease. She does have a history of hypertension, as well as diet controlled diabetes and put on Eliquis. Currently she is resting comfortably. Heart rate is 120-130. Her BP is quite elevated at 200 systolic. LABORATORY DATA: Laboratory examination has been unremarkable with normal troponins. Chest x-ray reveals no evidence for congestive failure. MEDICATIONS: At home have included: 1. Lisinopril 20 mg daily. 2. Atenolol 50 mg daily. 3. Lovastatin 20 mg daily. 4. Nifedipine 30 mg twice a day. 5. Primidone 50 mg twice a day. 6. Paroxetine 10 mg daily. 7. Omeprazole. ALLERGIES: MULTIPLE INCLUDING KETOPROFEN, ETODOLAC, DICLOFENAC, IBUPROFEN, INDOMETHACIN, NAPROXEN AND OXAPROZIN. SOCIAL HISTORY: The patient is a former smoker, but stopped over 30 years ago. PHYSICAL EXAM: GENERAL: She is awake and alert. She has a resting tremor. VITAL SIGNS: Blood pressure is 200/100, pulse is approximately 125 and irregular. LUNGS: The lungs are essentially clear. CARDIOVASCULAR: Exam reveals a rapidly irregular rhythm. No significant murmur is noted. Electrocardiogram reveals no acute ST or T-wave changes. ASSESSMENT: The patient has atrial fibrillation with a rapid response probably in response to her respiratory embarrassment. She has been on 60 of diltiazem four times daily and we will increase this to 90 mg four times a day hopefully to control both rate and blood pressure. We will also need to consider anticoagulation for her atrial fibrillation as her CHADS2 score would be at least 3 for age, hypertension and diabetes. MD LINDSEY Armenta/VI/flako , 09:26 AM , 09:58 AM
--- NOTE | 2017-07-28 11:29 | HHI.CCPN ---
Subjective Remarks/Hospital Course Patient is an 87-year-old female with past medical history of probable COPD, hypertension, dyslipidemia, diabetes, chronic kidney disease stage III, memory loss, recent echo 07/23/2017 showing cardiomyopathy EF 30-35% was admitted to [facility] service on 07/23/2017. Apparently patient had infected tooth that was removed last Tuesday, and was placed on Amoxicillin. Patient was admitted 07/21 to the hospitalist service with high fever up to 102 and no clear source of infection. CT maxillofacial showed previous surgery but no abscess. She patient did not want to stay in hospital and was discharged on 07/22. Presented with similar symptoms again on 07/23/2017, and for probable sepsis was placed on Zosyn. Today patient developed acute respiratory decompensation, with labored breathing and hypoxia. Patient's ABG on 5 L nasal cannula showed pH of 7.14 base excess -6 PCO2 of 67 and PO2 92. Stat chest x- ray showed bilateral interstitial infiltrates and right lower lobe pneumonia. Patient was moved to the ICU and critical care medicine was consulted I immediately evaluated the patient in the ICU. She is in severe respiratory distress tachypneic using accessory muscles. Immediately placed on BiPAP 10/5 IV Solu-Medrol 1 stat DuoNeb also ordered. Review of echo done on 07/23/2017 shows EF of 30-35%. Chest x-ray shows pulmonary edema as well as pneumonia. I added Zyvox also added IV Lasix 20 mg every 12, Aldactone 25 mg po BID. Patient expressed wishes not to be intubated or resuscitated and I have changed her CODE STATUS to DNR 07/26: Resting in bed in no acute distress. Currently on 4 L nasal cannula. Diuresed using furosemide and spironolactone. Currently in atrial fibrillation with rapid ViscoSpot currently on a diltiazem drip. We will add digoxin 07/27: Currently 1.5 L nasal cannula. Heart rate controlled between 80 and 100. Initiated on diltiazem 90 mg p.o. every 6 hours attempt to wean off drip. Digoxin level 0.8. Replacing magnesium and potassium currently. Appears comfortable. Subjective 07/28: Currently off diltiazem drip. Objective Vital Signs Date Time Temp Pulse Resp B/P (MAP) Pulse Ox O2 Delivery O2 Flow Rate FiO2 07/28/17 10:00 79 07/28/17 08:08 97 Nasal Cannula 1.50 07/28/17 08:00 97.5 19 141/67 (91) 07/28/17 04:00 30 Intake and Output 07/28/17 07/28/17 07/29/17 08:00 16:00 00:00 Intake Total 200 ml 50 ml Output Total 554 ml Balance -354 ml 50 ml Result Diagram: 07/28/17 0430 07/28/17 0430 Other Results Microbiology Date/Time Source Procedure Growth Status 07/23/17 16:48 Blood Peripheral Aerobic Blood Culture - Final NO GROWTH IN 5 DAYS Complete 07/23/17 16:48 Blood Peripheral Anaerobic Blood Culture - Final NO GROWTH IN 5 DAYS Complete 07/23/17 16:46 Nasal Washing Influenza Types A,B Antigen (FACUNDO) - Final NEGATIVE FOR FLU A AND B ANTIGEN.... Complete Imaging Last Impressions Chest X-Ray 07/27/17 0000 Signed Impressions: Service Date/Time: Thursday, July 27, 2017 10:31 - CONCLUSION: Continued improvement in aeration. Maged Booker MD Objective Remarks GENERAL: 87-year-old female resting in bed in no acute distress on nasal cannula SKIN: Warm and dry. HEAD: Atraumatic. Normocephalic. EYES: Pupils equal and round. No scleral icterus. No injection or drainage. ENT: No nasal bleeding or discharge. Mucous membranes pink and moist. NECK: Trachea midline. No JVD. CARDIOVASCULAR: McCarte, IR. S1, S2 no S4 without murmur RESPIRATORY: No accessory muscle use. Clear to auscultation. Breath sounds equal bilaterally. GASTROINTESTINAL: Abdomen soft, non-tender, nondistended. Hypoactive bowel sounds are appreciated MUSCULOSKELETAL: Extremities with trace lower extremity edema. No obvious deformities. NEUROLOGICAL: Awake and alert. No obvious cranial nerve deficits. Motor grossly within normal limits. 4 out of 5 muscle strength in the arms and legs. Tremulous Urinary Catheter: No Assessment to: Continue Vascular Central Line Catheter: No Assessment to: Continue A/P Assessment and Plan NEURO/PSYCH: Dementia disorder NOS Depression/anxiety Essential tremor Restless leg syndrome Allergic rhinitis Continue donepezil 5 mg p.o. daily Holding fluoxetine 10 mg p.o. daily Continue primidone 50 mg p.o. twice daily Acetaminophen 650 mg p.o. every 4 hours as needed fever/pain 1-4 -Morphine 2 mg IV every 3 hours as needed for pain 5 through 10 and anxiety Continue loratadine 10 mg p.o. daily for allergic rhinitis RESP: Acute hypoxemic and hypercapnic respiratory failure -resolving Right lower lobe pneumonia Acute COPD exacerbation Nasal cannula to maintain saturations greater than equal to 92%. Currently on 1.5 L Incentive spirometry while awake Albuterol/ipratropium aerosols every 6 hours while awake with albuterol aerosols every 2 hours as needed dyspnea Methylprednisolone succinate 60 mg IV every 8 hours Follow-up chest x-ray in a.m. 07/27 -Patient refuses intubation -BiPAP 03/03 yesterday 07/26 CVS: Acute systolic heart failure ejection fraction 30-35% Essential hypertension Atrial fibrillation with rapid ventricular response Dyslipidemia Currently on diltiazem 90 mg p.o. every 6 hours atenolol 50 mg p.o. daily Added isosorbide dinitrate 10 mg 3 times daily and hydralazine 25 mg 3 times daily for BP control Cardiology added Prinivil 20 mg p.o. daily 07/28 2D echocardiogram to revealed EF 30-35%. Decrease left ventricular systolic function. Moderate MR. PAP 26.2 mmHg Currently on spironolactone 25 mg p.o. twice daily Continue with pravastatin 20 mg p.o. daily. Medication is lovastatin 20 mg p.o. daily for dyslipidemia Serial troponins 0.02 Home medications for hypertension include atenolol 50 mg daily, nifedipine 30 mg daily, lisinopril 20 mg daily GI: Gastroesophageal reflux disease Advance diet as tolerated/ADA Pantoprazole 20 mg p.o. daily/home medication is omeprazole 20 mg p.o. daily Docusate sodium/senna 1 tablet p.o. twice daily bowel regimen Renal/: Chronic kidney disease stage IIIa -Monitor renal function closely. - Galvan catheter. - Follow BMP/CBC in a.m. ID: Possible HCAP -Follow up on blood cultures sputum culture 07/23 on both influenza a and B 07/23 no growth to date -Continue to Piperacillin /tazobactam with Linezolid day #4 HEME: Normocytic anemia -Monitor CBC, CMP, coags ENDO: Diabetes mellitus polyneuropathy hemoglobin A1c 6.3 Hyperglycemia likely steroid induced Sliding-scale insulin with Novulog with Accu-Cheks before meals/at bedtime to maintain euglycemia/low regimen Check TSH in a.m. 0.692 -Electrolyte replacement per ICU electrolyte protocol -We will start on insulin detemir 10 units daily. First dose tonight MSK: Carpal tunnel syndrome PT evaluate and treat Continue calcium with vitamin D 200/250 1 tablet twice daily PROPH: -Bilateral lower extremity SCDs. Enoxaparin, pantoprazole LINES: -Utilize peripheral IVs, central line if needed Level 2 follow-up Patient is stable from a critical care medicine standpoint. Assign care to hospitalist in a.m. /. Okay to transfer from ICU Tommy Pond MD Jul 28, 2017 11:29
[2017-07-28] MEDS ORDERED: ENOXAPARIN SODIUM 30 MG/0.3 ML SYRINGE SQ SCH (13:00)
[2017-07-28] MEDS: LISINOPRIL 20 MG TAB PO SCH (17:21)
[2017-07-28] MEDS: DONEPEZIL HCL 5 MG TAB PO SCH (20:35)
[2017-07-28] MEDS: APIXABAN 2.5 MG TABLET PO SCH (20:36)
[2017-07-29] VITALS (14 sets, daily range): BP systolic 120–190; BP diastolic 58–83; PULSE 64–109; RESP 17–18; TEMP 96.2–97; O2SAT 93–97
[2017-07-29] MEDS: LINEZOLID 600 MG PREMIX 300 ML IV SCH ×2 (00:41→11:48)
[2017-07-29] MEDS: PIPERACIL-TAZO 2.25 GM PREMIX 50 ML IV SCH ×2 (02:58→09:01)
[2017-07-29] MEDS: methylPREDNISolone SOD SUCC 125 MG/2 ML VIAL IV PUSH SCH ×2 (02:59→11:49)
[2017-07-29] MEDS: hydrALAZINE HCL 25 MG TAB PO SCH (05:58)
[2017-07-29] MEDS: DILTIAZEM HCL 90 MG TAB PO SCH ×4 (05:58→23:25)
[2017-07-29] MEDS: ISOSORBIDE DINITRATE 10 MG TAB PO SCH ×2 (05:58→12:23)
[2017-07-29 06:37] LABS: HEMATOCRIT 28.1 % (35.0-46.0); HEMOGLOBIN 9.9 GM/DL (11.6-15.3); MEAN CELL VOLUME 93.3 FL (80.0-100.0); MEAN CORPUSCULAR HEMOGLOBIN 32.9 PG (27.0-34.0); MEAN CORPUSCULAR HGB CONC 35.3 % (32.0-36.0); MEAN PLATELET VOLUME 8.4 FL (7.0-11.0); PLATELET COUNT 245 TH/MM3 (150-450); RED BLOOD COUNT 3.01 MIL/MM3 (4.00-5.30); RED CELL DISTRIBUTION WIDTH 13.7 % (11.6-17.2); WHITE BLOOD COUNT 8.6 TH/MM3 (4.0-11.0)
[2017-07-29 07:06] LABS: BICARBONATE 26.8 MEQ/L (21.0-32.0); CALCIUM 8.3 MG/DL (8.5-10.1); CREATININE 1.73 MG/DL (0.50-1.00)
--- NOTE | 2017-07-29 07:31 | RADRPT ---
EXAM DATE/TIME: 07/29/2017 06:17 [facility] COMPARISON: CHEST SINGLE AP, July 27, 2017, 10:31. INDICATIONS : Short of breath, evaluate pulmonary edema MEDICAL HISTORY : Cardiovascular disease. SURGICAL HISTORY : None. ENCOUNTER: Subsequent ACUITY: 1 week PAIN SCORE: 0/10 LOCATION: Bilateral chest FINDINGS: The heart is mildly enlarged. Advanced calcific atherosclerotic disease is seen in the thoracic aorta . Lungs are mildly hyperinflated with some mild interstitial prominence. There is no evidence of acute air space disease, mass densities, pulmonary edema or effusions. Severe arthropathy is identified at both shoulder joints CONCLUSION: 1. Cardiomegaly without evidence of acute pulmonary edema or significant airspace disease. 2. Pulmonary hyperinflation characteristic of COPD. 3. 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 Elliott Barahona MD on July 29, 2017 at 7:29 Board Certified Radiologist. This report was verified electronically.
[2017-07-29] MEDS: RESP: ALBUTEROL 2.5 MG/IPRATROPIUM 0.5 MG NEB (SCH) NEB ×2 (08:06→13:51)
[2017-07-29] MEDS: PANTOPRAZOLE SOD 20 MG DELAYED RELEASE TAB PO SCH (08:38)
[2017-07-29] MEDS: ATENOLOL 50 MG TAB PO SCH (08:39)
[2017-07-29] MEDS: PRAVASTATIN SOD 20 MG TAB PO SCH (08:39)
[2017-07-29] MEDS: SPIRONOLACTONE 25 MG TAB PO SCH ×2 (08:39→17:45)
[2017-07-29] MEDS: DOCUSATE SODIUM 50 MG/SENNA 8.6 MG TAB PO SCH ×2 (08:41→20:38)
[2017-07-29] MEDS: APIXABAN 2.5 MG TABLET PO SCH ×2 (08:41→20:39)
[2017-07-29] MEDS: LORATADINE 10 MG TAB PO SCH (08:42)
[2017-07-29] MEDS: CALCIUM/VITAMIN D 250 MG/125 U TAB PO SCH ×2 (08:42→20:38)
[2017-07-29] MEDS: LISINOPRIL 20 MG TAB PO SCH (08:44)
[2017-07-29] MEDS: SODIUM CHLORIDE 0.9% FLUSH 10 ML FLUSH IV FLUSH SCH ×2 (08:52→20:40)
[2017-07-29] MEDS: INSULIN DETEMIR 100 UNITS/ML VIAL SQ SCH ×2 (09:00→20:40)
[2017-07-29] MEDS: INSULIN ASPART SUPPLEMENTAL SCALE SQ SCH ×4 (09:01→20:40)
--- NOTE | 2017-07-29 09:43 | PD.CARD.PN ---
Subjective Subjective Remarks No complaints. Denies dyspnea or chest pain Objective Medications Current Medications Medications (Trade) Dose Ordered Sig/Danis Route Start Time Stop Time Status Last Admin (Tenormin) 50 mg DAILY PO 07/24/17 09:00 07/29/17 08:39 (Aricept) 5 mg HS PO 07/23/17 21:00 07/28/17 20:35 (Prinivil) 20 mg DAILY PO 07/24/17 09:00 Future Hold 07/25/17 08:32 (Pravachol) 20 mg DAILY PO 07/24/17 09:00 07/29/17 08:39 (Mysoline) 50 mg BID PO 07/23/17 21:00 07/28/17 20:34 (Oscal-D 250-125) 250 mg BID PO 07/24/17 09:00 07/29/17 08:42 (Protonix) 20 mg DAILY PO 07/24/17 09:00 07/29/17 08:38 (Paxil) 10 mg DAILY PO 07/24/17 09:00 Future Hold 07/25/17 08:31 (NS Flush) 2 ml UNSCH PRN IV FLUSH 07/23/17 21:00 (NS Flush) 2 ml BID IV FLUSH 07/23/17 21:00 07/29/17 08:52 (Tylenol) 650 mg Q4H PRN PO 07/23/17 21:00 07/28/17 00:16 (Narcan Inj) 0.4 mg UNSCH PRN IV PUSH 07/23/17 21:00 (Amira-Colace) 1 tab BID PO 07/23/17 21:00 07/29/17 08:41 (Milk Of Magnesia Liq) 30 ml Q12H PRN PO 07/23/17 21:00 (Senokot) 17.2 mg Q12H PRN PO 07/23/17 21:00 (Dulcolax Supp) 10 mg DAILY PRN RECTAL 07/23/17 21:00 (Lactulose Liq) 30 ml DAILY PRN PO 07/23/17 21:00 (NovoLOG SUPPLEMENTAL SCALE) 1 ACHS SLIDING SCALE SQ 07/24/17 12:00 07/29/17 09:01 (Claritin) 10 mg DAILY PO 07/25/17 09:00 07/29/17 08:42 (Zofran Inj) 4 mg Q6H PRN IV 07/25/17 09:45 (Catapres) 0.1 mg Q6H PRN PO 07/25/17 09:45 (Duoneb Neb) 1 ampule Q6HR WHILE AWAKE NEB NEB 07/25/17 14:00 07/29/17 08:06 Linezolid 300 ml @ 300 mls/hr Q12H IV 07/25/17 12:00 07/29/17 00:41 (Apresoline Inj) 20 mg Q4H PRN IV PUSH 07/25/17 12:00 07/25/17 16:25 (Morphine Inj) 2 mg Q3H PRN IV PUSH 07/25/17 12:00 07/25/17 17:36 (Aldactone) 25 mg BID@,18 PO 07/25/17 12:15 07/29/17 08:39 Potassium Chloride 100 ml @ 50 mls/hr Q2H PRN IV 07/25/17 12:15 Potassium Chloride 100 ml @ 50 mls/hr Q2H PRN IV 07/25/17 12:15 (K-Lyte Cl Eff) 50 meq UNSCH PRN PO 07/25/17 12:15 Potassium Chloride 100 ml @ 25 mls/hr UNSCH PRN IV 07/25/17 12:15 Potassium Chloride 100 ml @ 50 mls/hr Q2H PRN IV 07/25/17 12:15 Magnesium Sulfate 4 gm/Sodium Chloride 100 ml @ 50 mls/hr UNSCH PRN IV 07/25/17 12:15 (Mag-Ox) 800 mg UNSCH PRN PO 07/25/17 12:15 Magnesium Sulfate 2 gm/Sodium Chloride 100 ml @ 50 mls/hr UNSCH PRN IV 07/25/17 12:15 (K-Phos) 2,000 mg Q4H PRN PO 07/25/17 12:15 Sodium Phosphate 30 mmol/Sodium Chloride 250 ml @ 42 mls/hr UNSCH PRN IV 07/25/17 12:15 (K-Phos) 2,000 mg UNSCH PRN PO/TUBE 07/25/17 12:15 Potassium Phosphate 30 mmol/ Sodium Chloride 260 ml @ 42 mls/hr UNSCH PRN IV 07/25/17 12:15 (Albuterol Neb) 2.5 mg Q2HR NEB PRN NEB 07/26/17 14:00 (Isordil) 10 mg Q8HR PO 07/27/17 14:00 07/29/17 05:58 (Cardizem) 90 mg Q6HR PO 07/27/17 12:00 07/29/17 05:58 (SoluMEDROL INJ) 60 mg Q8H IV PUSH 07/27/17 20:00 07/29/17 02:59 (Levemir Inj) 5 units Q12HR SQ 07/27/17 21:00 07/29/17 09:00 Piperacillin Sod/ Tazobactam Sod 50 ml @ 100 mls/hr Q6H IV 07/28/17 02:00 07/29/17 09:01 (Prinivil) 20 mg DAILY PO 07/28/17 09:30 07/29/17 08:44 (Eliquis) 2.5 mg BID PO 07/28/17 21:00 07/29/17 08:41 (Apresoline) 50 mg Q8HR PO 07/29/17 14:00 UNV Vital Signs / I&O Vital Signs Date Time Temp Pulse Resp B/P (MAP) Pulse Ox O2 Delivery O2 Flow Rate FiO2 07/29/17 08:10 93 07/29/17 04:02 64 07/29/17 03:20 96.4 83 18 179/73 (108) 94 07/29/17 01:00 96.7 84 18 190/79 (116) 95 07/28/17 22:00 72 07/28/17 20:15 100 21 07/28/17 20:00 77 07/28/17 20:00 99 Room Air 07/28/17 20:00 97.9 77 18 137/66 (89) 99 07/28/17 18:00 77 07/28/17 16:00 97.9 75 17 169/70 (103) 96 07/28/17 16:00 75 07/28/17 16:00 96 Room Air 21 07/28/17 14:00 72 07/28/17 12:00 98 1.00 07/28/17 12:00 73 07/28/17 12:00 97.8 73 18 159/80 (106) 98 07/28/17 10:00 79 I/O 307/28/17 07/28/17 07/29/17 07/29/17 07/29/17 07:00 15:00 23:00 07:00 15:00 23:00 Intake Total 200 ml 350 ml 450 ml 710 ml Output Total 554 ml 500 ml Balance -354 ml 350 ml -50 ml 710 ml Intake Oral 200 ml 400 ml 360 ml IV Total 350 ml 50 ml 350 ml Output Urine Total 550 ml 500 ml Stool Total 4 ml # Voids 2 # Bowel Movements 2 0 Physical Exam HR 70-80 irregular lungs clear Laboratory Laboratory Tests Test 07/29/17 05:30 White Blood Count 8.6 TH/MM3 Red Blood Count 3.01 MIL/MM3 Hemoglobin 9.9 GM/DL Hematocrit 28.1 % Mean Corpuscular Volume 93.3 FL Mean Corpuscular Hemoglobin 32.9 PG Mean Corpuscular Hemoglobin Concent 35.3 % Red Cell Distribution Width 13.7 % Platelet Count 245 TH/MM3 Mean Platelet Volume 8.4 FL Blood Urea Nitrogen 46 MG/DL Creatinine 1.73 MG/DL Random Glucose 211 MG/DL Calcium Level 8.3 MG/DL Sodium Level 136 MEQ/L Potassium Level 4.3 MEQ/L Chloride Level 98 MEQ/L Carbon Dioxide Level 26.8 MEQ/L Anion Gap 11 MEQ/L Estimat Glomerular Filtration Rate 28 ML/MIN Imaging Last 24 hours Impressions Chest X-Ray 07/29/17 0600 Signed Impressions: Service Date/Time: Saturday, July 29, 2017 06:17 - CONCLUSION: 1. Cardiomegaly without evidence of acute pulmonary edema or significant airspace disease. 2. Pulmonary hyperinflation characteristic of COPD. 3. 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 Elliott Barahona MD Assessment and Plan Assessment and Plan HR well controlled. Will increase hydralazine for better BP control. Olvin Contreras MD Jul 29, 2017 09:43
[2017-07-29] MEDS: PRIMIDONE 50 MG TAB PO SCH ×2 (11:47→20:51)
[2017-07-29] MEDS: ACETAMINOPHEN 325 MG TAB PO PRN ×2 (11:48→18:45)
[2017-07-29] MEDS: hydrALAZINE HCL 50 MG TAB PO SCH ×2 (12:24→20:38)
--- NOTE | 2017-07-29 14:11 | HHI.PR ---
Subjective Remarks This is an 87-year-old female with past medical history of probable COPD, hypertension, dyslipidemia, diabetes, chronic kidney disease stage III, memory loss, recent echo 07/23/2017 showing cardiomyopathy EF 30-35% was admitted to [facility] service on 07/23/2017. Apparently patient had infected tooth that was removed last Tuesday, and was placed on Amoxicillin. Patient was admitted 07/21 to the hospitalist service with high fever up to 102 and no clear source of infection. CT maxillofacial showed previous surgery but no abscess. She patient did not want to stay in hospital and was discharged on 07/22. Presented with similar symptoms again on 07/23/2017, and for probable sepsis was placed on Zosyn. Then patient developed acute respiratory decompensation, with labored breathing and hypoxia. Patient's ABG on 5 L nasal cannula showed pH of 7.14 base excess -6 PCO2 of 67 and PO2 92. Chest x-ray (07/25) showed bilateral interstitial infiltrates and right lower lobe pneumonia. Patient was moved to the ICU and critical care medicine was consulted. Patient expressed wishes not to be intubated or resuscitated and patient's CODE STATUS changed to DNR Patient was placed on BiPAP 03/03 given IV Solu-Medrol, DuoNeb, Zyvox, IV Lasix 20 mg every 12, Aldactone 25 mg po BID Then developed atrial fibrillation with rapid treated with diltiazem drip and digoxin. Patient status improved and she was transferred out of ICU. We have been consulted to assume care. Patient sitting up in chair comfortably appears to be in no acute distress. Reports fatigue offers no other complaints at this time. Denies cough, SOB or palpitations. Objective Vitals Vital Signs Date Time Temp Pulse Resp B/P (MAP) Pulse Ox O2 Delivery O2 Flow Rate FiO2 07/29/17 11:12 65 07/29/17 08:10 93 07/29/17 08:00 96.4 80 18 145/63 (90) 97 07/29/17 04:02 64 07/29/17 03:20 96.4 83 18 179/73 (108) 94 07/29/17 01:00 96.7 84 18 190/79 (116) 95 07/28/17 22:00 72 07/28/17 20:15 100 21 07/28/17 20:00 77 07/28/17 20:00 99 Room Air 07/28/17 20:00 97.9 77 18 137/66 (89) 99 07/28/17 18:00 77 07/28/17 16:00 97.9 75 17 169/70 (103) 96 07/28/17 16:00 75 07/28/17 16:00 96 Room Air 21 07/28/17 14:00 72 Result Diagram: 07/29/17 0530 07/29/17 0530 Other Results Laboratory Tests Test 07/26/17 14:53 07/26/17 22:27 07/27/17 07:00 07/27/17 12:18 Troponin I 0.02 NG/ML LESS THAN 0.02 NG/ML LESS THAN 0.02 NG/ML LESS THAN 0.02 NG/ML Blood Urea Nitrogen 41 MG/DL Creatinine 1.67 MG/DL Random Glucose 248 MG/DL Total Protein 6.2 GM/DL Albumin 2.4 GM/DL Calcium Level 8.2 MG/DL Phosphorus Level 3.2 MG/DL Magnesium Level 1.8 MG/DL Alkaline Phosphatase 56 U/L Aspartate Amino Transf (AST/SGOT) 16 U/L Alanine Aminotransferase (ALT/SGPT) 21 U/L Total Bilirubin 0.1 MG/DL Sodium Level 138 MEQ/L Potassium Level 3.7 MEQ/L Chloride Level 101 MEQ/L Carbon Dioxide Level 26.7 MEQ/L Anion Gap 10 MEQ/L Estimat Glomerular Filtration Rate 29 ML/MIN Triglycerides Level 62 MG/DL Cholesterol Level 138 MG/DL LDL Cholesterol 87 MG/DL HDL Cholesterol 39.1 MG/DL Cholesterol/HDL Ratio 3.52 RATIO Thyroid Stimulating Hormone 3rd Gen 0.692 uIU/ML Digoxin Level 0.8 NG/ML White Blood Count 8.4 TH/MM3 Red Blood Count 3.11 MIL/MM3 Hemoglobin 10.0 GM/DL Hematocrit 29.1 % Mean Corpuscular Volume 93.6 FL Mean Corpuscular Hemoglobin 32.0 PG Mean Corpuscular Hemoglobin Concent 34.2 % Red Cell Distribution Width 13.5 % Platelet Count 198 TH/MM3 Mean Platelet Volume 8.6 FL Neutrophils (%) (Auto) 95.2 % Lymphocytes (%) (Auto) 3.2 % Monocytes (%) (Auto) 1.5 % Eosinophils (%) (Auto) 0.0 % Basophils (%) (Auto) 0.1 % Neutrophils # (Auto) 8.0 TH/MM3 Lymphocytes # (Auto) 0.3 TH/MM3 Monocytes # (Auto) 0.1 TH/MM3 Eosinophils # (Auto) 0.0 TH/MM3 Basophils # (Auto) 0.0 TH/MM3 CBC Comment DIFF FINAL Differential Comment Test 07/28/17 04:30 07/29/17 05:30 White Blood Count 10.6 TH/MM3 8.6 TH/MM3 Red Blood Count 3.27 MIL/MM3 3.01 MIL/MM3 Hemoglobin 10.4 GM/DL 9.9 GM/DL Hematocrit 30.6 % 28.1 % Mean Corpuscular Volume 93.6 FL 93.3 FL Mean Corpuscular Hemoglobin 32.0 PG 32.9 PG Mean Corpuscular Hemoglobin Concent 34.2 % 35.3 % Red Cell Distribution Width 13.5 % 13.7 % Platelet Count 244 TH/MM3 245 TH/MM3 Mean Platelet Volume 8.6 FL 8.4 FL Neutrophils (%) (Auto) 97.1 % Lymphocytes (%) (Auto) 1.9 % Monocytes (%) (Auto) 1.0 % Eosinophils (%) (Auto) 0.0 % Basophils (%) (Auto) 0.0 % Neutrophils # (Auto) 10.3 TH/MM3 Lymphocytes # (Auto) 0.2 TH/MM3 Monocytes # (Auto) 0.1 TH/MM3 Eosinophils # (Auto) 0.0 TH/MM3 Basophils # (Auto) 0.0 TH/MM3 CBC Comment DIFF FINAL Differential Comment Blood Urea Nitrogen 43 MG/DL 46 MG/DL Creatinine 1.64 MG/DL 1.73 MG/DL Random Glucose 192 MG/DL 211 MG/DL Calcium Level 8.6 MG/DL 8.3 MG/DL Phosphorus Level 3.2 MG/DL Magnesium Level 2.5 MG/DL Sodium Level 136 MEQ/L 136 MEQ/L Potassium Level 4.2 MEQ/L 4.3 MEQ/L Chloride Level 99 MEQ/L 98 MEQ/L Carbon Dioxide Level 26.8 MEQ/L 26.8 MEQ/L Anion Gap 10 MEQ/L 11 MEQ/L Estimat Glomerular Filtration Rate 30 ML/MIN 28 ML/MIN Imaging Last Impressions Chest X-Ray 07/25/17 0000 Signed Impressions: Service Date/Time: Tuesday, July 25, 2017 10:36 - CONCLUSION: Abnormal interstitial opacities bilaterally with right lower lung zone airspace consolidation. The pattern could represent interstitial and airspace pulmonary edema. Infection is less likely given the distribution but also possible. Maged Hedrick MD Last 24 hours Impressions Chest X-Ray 07/23/17 1643 Signed Impressions: Service Date/Time: Sunday, July 23, 2017 17:04 - CONCLUSION: 1. Stable chest x-ray without acute cardiopulmonary abnormality identified. 2. Stable abnormal but nonspecific changes of the bilateral humeri. Maged Hedrick MD Objective Remarks General: NAD, AAOx3 Chest: CTA bilaterally Cardiac: Irregular irregular Abd: +BS, soft ND/NT Ext: No edema A/P Problem List: (1) Right lower lobe pneumonia ICD Codes: J18.1 - Lobar pneumonia, unspecified organism Plan: Patient developed acute respiratory decompensation (07/25), with labored breathing and hypoxia. Patient's ABG on 5 L nasal cannula showed pH of 7.14 base excess -6 PCO2 of 67 and PO2 92. Chest x-ray (07/25) showed bilateral interstitial infiltrates and right lower lobe pneumonia. Patient was moved to the ICU and critical care medicine was consulted. Patient expressed wishes not to be intubated or resuscitated and CODE STATUS DNR Patient was placed on BiPAP 03/03 given IV Solu-Medrol, DuoNeb, Zyvox, IV Lasix 20 mg every 12, Aldactone 25 mg po BID Nasal cannula to maintain saturations greater than equal to 92%. Currently on room air Incentive spirometry while awake Albuterol/ipratropium aerosols every 6 hours while awake with albuterol aerosols every 2 hours as needed dyspnea Methylprednisolone succinate 60 mg IV every 8 hours changed to Prednisone PO (07/29) Zosyn (07/23 -> 3/2) Zyvox (07/25 -> 07/29) Follow-up chest x-ray in a.m. 07/27 RLL PNA improving, will DC ABX and monitor (2) Diabetes mellitus ICD Codes: E11.9 - Type 2 diabetes mellitus without complications Status: Chronic Plan: Sliding-scale insulin with Accu-Cheks ACHS Levemir 5 units Q12H 07/29 Solu- medrol IV changed prednisone PO, continue to monitor blood glucose (3) Atrial fibrillation with RVR ICD Codes: I48.91 - Unspecified atrial fibrillation Plan: Home medications for hypertension include atenolol 50 mg daily, nifedipine 30 mg daily, lisinopril 20 mg daily Currently on diltiazem 90 mg p.o. every 6 hours atenolol 50 mg p.o. daily Elliquis 2.5 mg PO BID Serial troponin 0.02 (4) HTN (hypertension) ICD Codes: I10 - Essential (primary) hypertension Status: Chronic Plan: Continue hydralazine 50 mg 3 times daily and Prinivil 20 mg PO daily for BP control 2D echocardiogram to revealed EF 30-35%. Decrease left ventricular systolic function. Moderate MR. PAP 26.2 mmHg Also currently on spironolactone 25 mg p PO twice daily DC isosorbide dinitrate 10 mg 3 times daily (5) Tremor ICD Codes: R25.1 - Tremor Status: Chronic Plan: home medications continued (6) Dementia ICD Codes: F03.90 - Unspecified dementia without behavioral disturbance Plan: Continue donepezil 5 mg p.o. daily Assessment and Plan Patient examined. Assessment and plan formulated with Dennise Carlos PA-C. I agree with the above. Dennise Carlos Jul 29, 2017 14:11 Charles Herman DO Aug 01, 2017 10:50
[2017-07-29] MEDS ORDERED: PILL SPLITTER OTHER PRN (14:30)
[2017-07-29] MEDS: DONEPEZIL HCL 5 MG TAB PO SCH (20:39)
[2017-07-29] MEDS: predniSONE 20 MG TAB PO SCH (20:39)
[2017-07-30] VITALS (8 sets, daily range): BP systolic 135–178; BP diastolic 67–80; PULSE 60–100; RESP 16–18; TEMP 96.1–97.1; O2SAT 95–96
[2017-07-30] MEDS: ACETAMINOPHEN 325 MG TAB PO PRN ×2 (04:15→20:30)
[2017-07-30] MEDS: DILTIAZEM HCL 90 MG TAB PO SCH (05:38)
[2017-07-30] MEDS: hydrALAZINE HCL 50 MG TAB PO SCH ×3 (05:38→22:23)
[2017-07-30 07:01] LABS: AUTOMATED NEUTROPHIL # 8.9 TH/MM3 (1.8-7.7); BASOPHIL % 0.1 % (0.0-2.0); HEMATOCRIT 31.6 % (35.0-46.0); HEMOGLOBIN 10.8 GM/DL (11.6-15.3); LYMPH % 2.4 % (9.0-44.0); LYMPHOCYTE # 0.2 TH/MM3 (1.0-4.8); MEAN CORPUSCULAR HEMOGLOBIN 31.9 PG (27.0-34.0); MEAN CORPUSCULAR HGB CONC 34.3 % (32.0-36.0); MEAN PLATELET VOLUME 8.1 FL (7.0-11.0); MONO % 2.6 % (0.0-8.0); MONOCYTE # 0.2 TH/MM3 (0-0.9); NEUT % 94.9 % (16.0-70.0); PLATELET COUNT 317 TH/MM3 (150-450); RED CELL DISTRIBUTION WIDTH 13.8 % (11.6-17.2); WHITE BLOOD COUNT 9.4 TH/MM3 (4.0-11.0)
[2017-07-30 07:26] LABS: BICARBONATE 28.1 MEQ/L (21.0-32.0); CALCIUM 7.9 MG/DL (8.5-10.1); CREATININE 1.73 MG/DL (0.50-1.00); MAGNESIUM 2.5 MG/DL (1.5-2.5)
[2017-07-30] MEDS: INSULIN ASPART SUPPLEMENTAL SCALE SQ SCH ×4 (08:00→20:29)
[2017-07-30] MEDS: CALCIUM/VITAMIN D 250 MG/125 U TAB PO SCH ×2 (08:21→20:30)
[2017-07-30] MEDS: DOCUSATE SODIUM 50 MG/SENNA 8.6 MG TAB PO SCH ×2 (08:21→20:31)
[2017-07-30] MEDS: APIXABAN 2.5 MG TABLET PO SCH ×2 (08:21→20:30)
[2017-07-30] MEDS: SPIRONOLACTONE 25 MG TAB PO SCH (08:22)
[2017-07-30] MEDS: LORATADINE 10 MG TAB PO SCH (08:22)
[2017-07-30] MEDS: LISINOPRIL 20 MG TAB PO SCH (08:22)
[2017-07-30] MEDS: ATENOLOL 50 MG TAB PO SCH (08:22)
[2017-07-30] MEDS: PRAVASTATIN SOD 20 MG TAB PO SCH (08:22)
[2017-07-30] MEDS: PANTOPRAZOLE SOD 20 MG DELAYED RELEASE TAB PO SCH (08:22)
[2017-07-30] MEDS: predniSONE 20 MG TAB PO SCH ×2 (08:22→20:30)
[2017-07-30] MEDS: INSULIN DETEMIR 100 UNITS/ML VIAL SQ SCH ×2 (08:44→20:29)
[2017-07-30] MEDS: SODIUM CHLORIDE 0.9% FLUSH 10 ML FLUSH IV FLUSH SCH ×2 (08:47→20:31)
[2017-07-30] MEDS: PRIMIDONE 50 MG TAB PO SCH ×2 (09:44→22:23)
[2017-07-30] MEDS ORDERED: HYDR-3800 PO (10:00)
[2017-07-30] MEDS ORDERED: PRED10 PO (10:00)
[2017-07-30] MEDS ORDERED: APIX2.5T PO (10:00)
[2017-07-30] MEDS: DILTIAZEM-CD 180 MG CAP ER PO SCH (11:57)
--- NOTE | 2017-07-30 12:36 | HHI.PR ---
Subjective Remarks Patient offers no new complaints reports feeling well Objective Vitals Vital Signs Date Time Temp Pulse Resp B/P (MAP) Pulse Ox O2 Delivery O2 Flow Rate FiO2 07/30/17 08:00 96.6 60 16 144/67 (92) 96 07/30/17 05:03 18 07/30/17 04:15 96.9 80 17 147/68 (94) 95 07/30/17 03:48 100 07/30/17 00:00 73 07/29/17 23:48 97 07/29/17 23:00 96.8 68 17 127/58 (81) 96 07/29/17 22:57 70 07/29/17 22:31 Nasal Cannula 2.00 07/29/17 20:08 97 07/29/17 19:14 96.7 67 18 120/66 (84) 95 07/29/17 16:40 77 07/29/17 16:00 96.2 101 18 153/83 (106) 95 Result Diagram: 07/30/17 0623 07/30/17 0623 Other Results Laboratory Tests Test 07/28/17 04:30 07/29/17 05:30 07/30/17 06:23 White Blood Count 10.6 TH/MM3 8.6 TH/MM3 9.4 TH/MM3 Red Blood Count 3.27 MIL/MM3 3.01 MIL/MM3 3.40 MIL/MM3 Hemoglobin 10.4 GM/DL 9.9 GM/DL 10.8 GM/DL Hematocrit 30.6 % 28.1 % 31.6 % Mean Corpuscular Volume 93.6 FL 93.3 FL 93.0 FL Mean Corpuscular Hemoglobin 32.0 PG 32.9 PG 31.9 PG Mean Corpuscular Hemoglobin Concent 34.2 % 35.3 % 34.3 % Red Cell Distribution Width 13.5 % 13.7 % 13.8 % Platelet Count 244 TH/MM3 245 TH/MM3 317 TH/MM3 Mean Platelet Volume 8.6 FL 8.4 FL 8.1 FL Neutrophils (%) (Auto) 97.1 % 94.9 % Lymphocytes (%) (Auto) 1.9 % 2.4 % Monocytes (%) (Auto) 1.0 % 2.6 % Eosinophils (%) (Auto) 0.0 % 0.0 % Basophils (%) (Auto) 0.0 % 0.1 % Neutrophils # (Auto) 10.3 TH/MM3 8.9 TH/MM3 Lymphocytes # (Auto) 0.2 TH/MM3 0.2 TH/MM3 Monocytes # (Auto) 0.1 TH/MM3 0.2 TH/MM3 Eosinophils # (Auto) 0.0 TH/MM3 0.0 TH/MM3 Basophils # (Auto) 0.0 TH/MM3 0.0 TH/MM3 CBC Comment DIFF FINAL DIFF FINAL Differential Comment Blood Urea Nitrogen 43 MG/DL 46 MG/DL 56 MG/DL Creatinine 1.64 MG/DL 1.73 MG/DL 1.73 MG/DL Random Glucose 192 MG/DL 211 MG/DL 206 MG/DL Calcium Level 8.6 MG/DL 8.3 MG/DL 7.9 MG/DL Phosphorus Level 3.2 MG/DL Magnesium Level 2.5 MG/DL 2.5 MG/DL Sodium Level 136 MEQ/L 136 MEQ/L 135 MEQ/L Potassium Level 4.2 MEQ/L 4.3 MEQ/L 4.0 MEQ/L Chloride Level 99 MEQ/L 98 MEQ/L 100 MEQ/L Carbon Dioxide Level 26.8 MEQ/L 26.8 MEQ/L 28.1 MEQ/L Anion Gap 10 MEQ/L 11 MEQ/L 7 MEQ/L Estimat Glomerular Filtration Rate 30 ML/MIN 28 ML/MIN 28 ML/MIN Imaging Last Impressions Chest X-Ray 07/25/17 0000 Signed Impressions: Service Date/Time: Tuesday, July 25, 2017 10:36 - CONCLUSION: Abnormal interstitial opacities bilaterally with right lower lung zone airspace consolidation. The pattern could represent interstitial and airspace pulmonary edema. Infection is less likely given the distribution but also possible. Maged Hedrick MD Last 24 hours Impressions Chest X-Ray 07/23/17 1643 Signed Impressions: Service Date/Time: Sunday, July 23, 2017 17:04 - CONCLUSION: 1. Stable chest x-ray without acute cardiopulmonary abnormality identified. 2. Stable abnormal but nonspecific changes of the bilateral humeri. Maged Hedrick MD Objective Remarks General: NAD, AAOx3 Chest: CTA bilaterally Cardiac: Irregular irregular Abd: +BS, soft ND/NT Ext: No edema A/P Problem List: (1) Right lower lobe pneumonia ICD Codes: J18.1 - Lobar pneumonia, unspecified organism Plan: Patient developed acute respiratory decompensation (07/25), with labored breathing and hypoxia. Patient's ABG on 5 L nasal cannula showed pH of 7.14 base excess -6 PCO2 of 67 and PO2 92. Chest x-ray (07/25) showed bilateral interstitial infiltrates and right lower lobe pneumonia. Patient was moved to the ICU and critical care medicine was consulted. Patient expressed wishes not to be intubated or resuscitated and CODE STATUS DNR Patient was placed on BiPAP 03/03 given IV Solu-Medrol, DuoNeb, Zyvox, IV Lasix 20 mg every 12, Aldactone 25 mg po BID Nasal cannula to maintain saturations greater than equal to 92%. Currently on room air Incentive spirometry while awake Albuterol/ipratropium aerosols every 6 hours while awake with albuterol aerosols every 2 hours as needed dyspnea Methylprednisolone succinate 60 mg IV every 8 hours changed to Prednisone PO (07/29) Zosyn (07/23 -> 07/29) Zyvox (07/25 -> 07/29) Follow-up chest x-ray in a.m. 07/27 RLL PNA improving, ABX DC'd (07/29) monitor (2) Diabetes mellitus ICD Codes: E11.9 - Type 2 diabetes mellitus without complications Status: Chronic Plan: Sliding-scale insulin with Accu-Cheks ACHS Levemir increased to 15 units QAM with breakfast and 7 units QHS 07/29 Solu- medrol IV changed prednisone PO, continue to monitor blood glucose (3) Atrial fibrillation with RVR ICD Codes: I48.91 - Unspecified atrial fibrillation Plan: Home medications for hypertension include atenolol 50 mg daily, nifedipine 30 mg daily, lisinopril 20 mg daily continue atenolol 50 mg p.o. daily change Cardizem 90 mg Q6H to Cardizem 360mg PO daily Elliquis 2.5 mg PO BID Serial troponin 0.02 (4) HTN (hypertension) ICD Codes: I10 - Essential (primary) hypertension Status: Chronic Plan: Continue hydralazine 50 mg 3 times daily and Prinivil 20 mg PO daily for BP control 2D echocardiogram to revealed EF 30-35%. Decrease left ventricular systolic function. Moderate MR. PAP 26.2 mmHg DC isosorbide dinitrate 10 mg 3 times daily (5) Tremor ICD Codes: R25.1 - Tremor Status: Chronic Plan: home medications continued (6) Dementia ICD Codes: F03.90 - Unspecified dementia without behavioral disturbance Plan: Continue donepezil 5 mg p.o. daily (7) CKD (chronic kidney disease) ICD Codes: N18.9 - Chronic kidney disease, unspecified Plan: Patient has CKD stage 3 at baseline 3/2 BUN 56 creatinine 1.73 and estimated GFR 28 will DC spironolactone recheck BMP in AM Assessment and Plan Patient examined. Assessment and plan formulated with Dennise Carlos PA-C. I agree with the above. Dennise Carlos Jul 30, 2017 12:36 Charles Herman DO Aug 01, 2017 10:50
[2017-07-30] MEDS: DONEPEZIL HCL 5 MG TAB PO SCH (20:31)
[2017-07-31] VITALS (7 sets, daily range): BP systolic 142–192; BP diastolic 65–86; PULSE 64–94; RESP 15–18; TEMP 96.1–97.3; O2SAT 95–97
[2017-07-31] MEDS: hydrALAZINE HCL 50 MG TAB PO SCH ×3 (06:05→22:45)
[2017-07-31] MEDS: INSULIN ASPART SUPPLEMENTAL SCALE SQ SCH ×4 (07:24→19:59)
[2017-07-31] MEDS: PANTOPRAZOLE SOD 20 MG DELAYED RELEASE TAB PO SCH (07:30)
[2017-07-31] MEDS: PRAVASTATIN SOD 20 MG TAB PO SCH (07:30)
[2017-07-31] MEDS: INSULIN DETEMIR 100 UNITS/ML VIAL SQ SCH ×2 (07:30→19:58)
[2017-07-31] MEDS: LISINOPRIL 20 MG TAB PO SCH (07:31)
[2017-07-31] MEDS: CALCIUM/VITAMIN D 250 MG/125 U TAB PO SCH ×2 (07:31→19:56)
[2017-07-31] MEDS: DILTIAZEM-CD 180 MG CAP ER PO SCH ×2 (07:31→19:56)
[2017-07-31] MEDS: ATENOLOL 50 MG TAB PO SCH (07:31)
[2017-07-31] MEDS: predniSONE 20 MG TAB PO SCH ×2 (07:31→19:57)
[2017-07-31] MEDS: LORATADINE 10 MG TAB PO SCH (07:32)
[2017-07-31] MEDS: APIXABAN 2.5 MG TABLET PO SCH ×2 (07:32→19:57)
[2017-07-31] MEDS: DOCUSATE SODIUM 50 MG/SENNA 8.6 MG TAB PO SCH ×2 (07:32→19:58)
[2017-07-31] MEDS: PRIMIDONE 50 MG TAB PO SCH ×2 (07:35→19:58)
[2017-07-31] MEDS: SODIUM CHLORIDE 0.9% FLUSH 10 ML FLUSH IV FLUSH SCH ×2 (07:35→19:56)
--- NOTE | 2017-07-31 15:18 | HHI.PR ---
Subjective Remarks Patient seen with at bedside Patient reports diarrhea multiple episodes today Objective Vitals Vital Signs Date Time Temp Pulse Resp B/P (MAP) Pulse Ox O2 Delivery O2 Flow Rate FiO2 07/31/17 08:00 97.0 77 16 192/74 (113) 97 07/31/17 04:10 89 07/31/17 04:00 97.3 94 18 169/86 (113) 96 07/31/17 00:05 79 07/31/17 00:00 96.9 77 18 143/65 (91) 95 07/30/17 20:00 84 07/30/17 19:45 97.1 86 18 135/72 (93) 95 07/30/17 16:00 96.3 72 16 178/77 (110) 95 Result Diagram: 07/30/1762207/30/17622 Other Results Laboratory Tests Test 07/29/17 05:30 07/30/17 06:23 White Blood Count 8.6 TH/MM3 9.4 TH/MM3 Red Blood Count 3.01 MIL/MM3 3.40 MIL/MM3 Hemoglobin 9.9 GM/DL 10.8 GM/DL Hematocrit 28.1 % 31.6 % Mean Corpuscular Volume 93.3 FL 93.0 FL Mean Corpuscular Hemoglobin 32.9 PG 31.9 PG Mean Corpuscular Hemoglobin Concent 35.3 % 34.3 % Red Cell Distribution Width 13.7 % 13.8 % Platelet Count 245 TH/MM3 317 TH/MM3 Mean Platelet Volume 8.4 FL 8.1 FL Blood Urea Nitrogen 46 MG/DL 56 MG/DL Creatinine 1.73 MG/DL 1.73 MG/DL Random Glucose 211 MG/DL 206 MG/DL Calcium Level 8.3 MG/DL 7.9 MG/DL Sodium Level 136 MEQ/L 135 MEQ/L Potassium Level 4.3 MEQ/L 4.0 MEQ/L Chloride Level 98 MEQ/L 100 MEQ/L Carbon Dioxide Level 26.8 MEQ/L 28.1 MEQ/L Anion Gap 11 MEQ/L 7 MEQ/L Estimat Glomerular Filtration Rate 28 ML/MIN 28 ML/MIN Neutrophils (%) (Auto) 94.9 % Lymphocytes (%) (Auto) 2.4 % Monocytes (%) (Auto) 2.6 % Eosinophils (%) (Auto) 0.0 % Basophils (%) (Auto) 0.1 % Neutrophils # (Auto) 8.9 TH/MM3 Lymphocytes # (Auto) 0.2 TH/MM3 Monocytes # (Auto) 0.2 TH/MM3 Eosinophils # (Auto) 0.0 TH/MM3 Basophils # (Auto) 0.0 TH/MM3 CBC Comment DIFF FINAL Differential Comment Magnesium Level 2.5 MG/DL Imaging Last Impressions Chest X-Ray 07/25/17 0000 Signed Impressions: Service Date/Time: Tuesday, July 25, 2017 10:36 - CONCLUSION: Abnormal interstitial opacities bilaterally with right lower lung zone airspace consolidation. The pattern could represent interstitial and airspace pulmonary edema. Infection is less likely given the distribution but also possible. Maged Hedrick MD Last 24 hours Impressions Chest X-Ray 07/23/17 1643 Signed Impressions: Service Date/Time: Sunday, July 23, 2017 17:04 - CONCLUSION: 1. Stable chest x-ray without acute cardiopulmonary abnormality identified. 2. Stable abnormal but nonspecific changes of the bilateral humeri. Maged Hedrick MD Objective Remarks General: NAD, AAOx3 Chest: CTA bilaterally Cardiac: Irregular irregular Abd: +BS, soft ND/NT Ext: No edema A/P Problem List: (1) Right lower lobe pneumonia ICD Codes: J18.1 - Lobar pneumonia, unspecified organism Plan: Patient developed acute respiratory decompensation (07/25), with labored breathing and hypoxia. Patient's ABG on 5 L nasal cannula showed pH of 7.14 base excess -6 PCO2 of 67 and PO2 92. Chest x-ray (07/25) showed bilateral interstitial infiltrates and right lower lobe pneumonia. Patient was moved to the ICU and critical care medicine was consulted. Patient expressed wishes not to be intubated or resuscitated and CODE STATUS DNR Patient was placed on BiPAP 10/ given IV Solu-Medrol, DuoNeb, Zyvox, IV Lasix 20 mg every 12, Aldactone 25 mg po BID Nasal cannula to maintain saturations greater than equal to 92%. Currently on room air Incentive spirometry while awake Albuterol/ipratropium aerosols every 6 hours while awake with albuterol aerosols every 2 hours as needed dyspnea Methylprednisolone succinate 60 mg IV every 8 hours changed to Prednisone PO (07/29) Zosyn (07/23 -> 07/29) Zyvox (07/25 -> 07/29) Follow-up chest x-ray in a.m. 07/27 RLL PNA improving, ABX DC'd (07/29) monitor Patient now with diarrhea, will check C Diff If C diff negative plan to DC to SNF tomorrow (2) Diabetes mellitus ICD Codes: E11.9 - Type 2 diabetes mellitus without complications Status: Chronic Plan: Sliding-scale insulin with Accu-Cheks ACHS Levemir increased to 15 units QAM with breakfast and 7 units QHS 07/29 Solu- medrol IV changed prednisone PO, continue to monitor blood glucose (3) Atrial fibrillation with RVR ICD Codes: I48.91 - Unspecified atrial fibrillation Plan: Home medications for hypertension include atenolol 50 mg daily, nifedipine 30 mg daily, lisinopril 20 mg daily continue atenolol 50 mg p.o. daily change Cardizem 90 mg Q6H to Cardizem 180mg PO BID Elliquis 2.5 mg PO BID Serial troponin 0.02 (4) HTN (hypertension) ICD Codes: I10 - Essential (primary) hypertension Status: Chronic Plan: Continue hydralazine 50 mg 3 times daily and Prinivil 20 mg PO daily for BP control 2D echocardiogram to revealed EF 30-35%. Decrease left ventricular systolic function. Moderate MR. PAP 26.2 mmHg BP high in AM will change Cardizem to 180 mg BID and monitor BP (5) Tremor ICD Codes: R25.1 - Tremor Status: Chronic Plan: home medications continued (6) Dementia ICD Codes: F03.90 - Unspecified dementia without behavioral disturbance Plan: Continue donepezil 5 mg p.o. daily (7) CKD (chronic kidney disease) ICD Codes: N18.9 - Chronic kidney disease, unspecified Plan: Patient has CKD stage 3 at baseline 07/29 BUN 56 creatinine 1.73 and estimated GFR 28 will DC spironolactone Assessment and Plan Patient examined. Assessment and plan formulated with Dennise Carlos PA-C. I agree with the above. Dennise Carlos Jul 31, 2017 15:18 Charles Herman DO Aug 01, 2017 10:51
[2017-07-31] MEDS: ACETAMINOPHEN 325 MG TAB PO PRN (19:00)
[2017-07-31] MEDS: DONEPEZIL HCL 5 MG TAB PO SCH (19:57)
[2017-08-01 00:15] VITALS: PULSE 81
[2017-08-01 00:24] VITALS: BP 155/67; PULSE 82; RESP 15; TEMP 97.2; O2SAT 96
[2017-08-01 04:00] VITALS: BP 145/74; PULSE 75; PULSE 85; RESP 15; TEMP 98.3; O2SAT 95
[2017-08-01] MEDS: hydrALAZINE HCL 50 MG TAB PO SCH ×2 (05:45→14:04)
[2017-08-01 08:00] VITALS: BP 153/85; PULSE 95; RESP 18; TEMP 97.8; O2SAT 95
[2017-08-01] MEDS: INSULIN DETEMIR 100 UNITS/ML VIAL SQ SCH (08:00)
[2017-08-01] MEDS: INSULIN ASPART SUPPLEMENTAL SCALE SQ SCH ×2 (08:00→12:00)
[2017-08-01] MEDS: LORATADINE 10 MG TAB PO SCH (08:05)
[2017-08-01] MEDS: APIXABAN 2.5 MG TABLET PO SCH (08:05)
[2017-08-01] MEDS: PRAVASTATIN SOD 20 MG TAB PO SCH (08:06)
[2017-08-01] MEDS: PRIMIDONE 50 MG TAB PO SCH (08:06)
[2017-08-01] MEDS: LISINOPRIL 20 MG TAB PO SCH (08:06)
[2017-08-01] MEDS: predniSONE 20 MG TAB PO SCH (08:06)
[2017-08-01] MEDS: PANTOPRAZOLE SOD 20 MG DELAYED RELEASE TAB PO SCH (08:06)
[2017-08-01] MEDS: DILTIAZEM-CD 180 MG CAP ER PO SCH (08:06)
[2017-08-01] MEDS: CALCIUM/VITAMIN D 250 MG/125 U TAB PO SCH (08:06)
[2017-08-01] MEDS: ATENOLOL 50 MG TAB PO SCH (08:06)
[2017-08-01] MEDS: SODIUM CHLORIDE 0.9% FLUSH 10 ML FLUSH IV FLUSH SCH (08:07)
[2017-08-01] MEDS ORDERED: CARD180C5 PO (08:53)
[2017-08-01] MEDS ORDERED: NOVOLOGP2 SQ (08:56)
[2017-08-01] MEDS: DOCUSATE SODIUM 50 MG/SENNA 8.6 MG TAB PO SCH (09:00)
--- NOTE | 2017-08-01 09:00 | HHI.DS ---
Discharge Summary Admission Date Jul 23, 2017 at 20:56 Discharge Date: Aug 01, 2017 Admitting Diagnosis persistent fever, generalized weakness (1) Right lower lobe pneumonia Diagnosis: Principal ICD Codes: J18.1 - Lobar pneumonia, unspecified organism (2) Diabetes mellitus Diagnosis: Secondary ICD Codes: E11.9 - Type 2 diabetes mellitus without complications Status: Chronic (3) Atrial fibrillation with RVR Diagnosis: Principal ICD Codes: I48.91 - Unspecified atrial fibrillation (4) HTN (hypertension) Diagnosis: Secondary ICD Codes: I10 - Essential (primary) hypertension Status: Chronic (5) Tremor Diagnosis: Secondary ICD Codes: R25.1 - Tremor Status: Chronic (6) Dementia Diagnosis: Secondary ICD Codes: F03.90 - Unspecified dementia without behavioral disturbance (7) CKD (chronic kidney disease) Diagnosis: Secondary ICD Codes: N18.9 - Chronic kidney disease, unspecified Consultants Dr. Contreras, cardiology Dr. Lynne, ICU Procedures none Brief History Ms. Hernández is an 87 y/o female with HTN, hyperlipidemia, diabetes, CKD, stage 3, and memory loss who was [place] [facility] with increased weakness x 1 day and fever. Pt had oral surgery Tuesday and was told that she had an infected tooth that was removed. Pt was placed on Amoxicillin after that procedure and reported that overall she felt fine after the procedure and yesterday. She did not have any residual pain in her jaw. During the night last night she felt weak when she woke up to use the bathroom. She was afraid to walk to the bathroom because her legs felt too weak so her son helped her to the bathroom using her walker. She reports that she felt chilled during the night and she has tremors normally and it seemed worse than her baseline tremors. Then this morning the pt was unable to get out of bed herself due to weakness. Her son and the care navigator had to wheel her to the bathroom on her walker. Her son called her PCP, Dr. Martinez, who reportedly recommended that she go to the ED for further evaluation. Pt was noted to have a fever of 102 degrees at admission. She denies any nausea/vomiting, abd pain, diarrhea, rash, dysuria, urinary frequency . Patient was started on Zosyn and had CT maxofacial showed previous surgery but no abscess ,patient did not want to stay another day in hospital and was discharged ,on po amoxicillin ,symptoms continued and she came back to hospital ,will restart on Zosyn and obtain 2d echo and blood cultures and follow up labs. CBC/BMP: 07/30/17 0623 07/30/17 0623 Significant Findings Laboratory Tests Test 07/30/17 06:23 07/31/17 15:50 Red Blood Count 3.40 MIL/MM3 (4.00-5.30) Hemoglobin 10.8 GM/DL (11.6-15.3) Hematocrit 31.6 % (35.0-46.0) Neutrophils (%) (Auto) 94.9 % (16.0-70.0) Lymphocytes (%) (Auto) 2.4 % (9.0-44.0) Neutrophils # (Auto) 8.9 TH/MM3 (1.8-7.7) Lymphocytes # (Auto) 0.2 TH/MM3 (1.0-4.8) Blood Urea Nitrogen 56 MG/DL (7-18) Creatinine 1.73 MG/DL (0.50-1.00) Random Glucose 206 MG/DL (74-106) Calcium Level 7.9 MG/DL (8.5-10.1) Sodium Level 135 MEQ/L (136-145) Estimat Glomerular Filtration Rate 28 ML/MIN (>89) Imaging Last Impressions Chest X-Ray 07/29/17 0600 Signed Impressions: Service Date/Time: Saturday, July 29, 2017 06:17 - CONCLUSION: 1. Cardiomegaly without evidence of acute pulmonary edema or significant airspace disease. 2. Pulmonary hyperinflation characteristic of COPD. 3. 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 Elliott Barahona MD PE at Discharge General: NAD, AAOx3 Chest: CTA bilaterally Cardiac: Irregular irregular Abd: +BS, soft ND/NT Ext: No edema Hospital Course Right lower lobe pneumonia Patient developed acute respiratory decompensation (07/25), with labored breathing and hypoxia. Patient's ABG on 5 L nasal cannula showed pH of 7.14 base excess -6 PCO2 of 67 and PO2 92. Chest x-ray (07/25) showed bilateral interstitial infiltrates and right lower lobe pneumonia. Patient was moved to the ICU and critical care medicine was consulted. Patient expressed wishes not to be intubated or resuscitated and CODE STATUS DNR Patient was placed on BiPAP 03/03 given IV Solu-Medrol, DuoNeb, Zyvox, IV Lasix 20 mg every 12, Aldactone 25 mg po BID Nasal cannula to maintain saturations greater than equal to 92%. Currently on room air Incentive spirometry while awake Albuterol/ipratropium aerosols every 6 hours while awake with albuterol aerosols every 2 hours as needed dyspnea Methylprednisolone succinate 60 mg IV every 8 hours changed to Prednisone PO (07/29) Zosyn (07/23 -> 07/29) Zyvox (07/25 -> 07/29) Follow-up chest x-ray in a.m. 07/27 RLL PNA improving, ABX DC'd (07/29) monitor Patient now with diarrhea, will check C Diff C diff negative Diabetes mellitus Sliding-scale insulin with Accu-Cheks ACHS Levemir increased to 15 units QAM with breakfast and 7 units QHS - This will likely need to be tapered as steroids decrease 07/29 Solu- medrol IV changed prednisone PO, continue to monitor blood glucose Atrial fibrillation with RVR Home medications for hypertension include atenolol 50 mg daily, nifedipine 30 mg daily, lisinopril 20 mg daily continue atenolol 50 mg p.o. daily change Cardizem 90 mg Q6H to Cardizem 360 mg daily which was later changed to 180mg PO BID for more even BP through out the day Elliquis 2.5 mg PO BID Serial troponin 0.02 HTN (hypertension) Continue hydralazine 50 mg 3 times daily and Prinivil 20 mg PO daily for BP control 2D echocardiogram to revealed EF 30-35%. Decrease left ventricular systolic function. Moderate MR. PAP 26.2 mmHg BP high in AM will change Cardizem to 180 mg BID and monitor BP Tremor home medications continued Dementia Continue donepezil 5 mg p.o. daily CKD (chronic kidney disease) Patient has CKD stage 3 at baseline 07/29 BUN 56 creatinine 1.73 and estimated GFR 28 will DC spironolactone Pt Condition on Discharge: Stable Discharge Disposition: Discharge to SNF Discharge Instructions DIET: Follow Instructions for: Heart Healthy Diet, Diabetic Diet Activities you can perform: Regular-No Restrictions Follow up Referrals: Cardiology - [address] Contreras PCP Follow-up - [address] Martinez New Medications: Diltiazem CD 24 HR (Cardizem CD 24 HR) 180 Mg Caper 180 MG PO BID for heart rate/ blood pressure, #30 CAP 0 Refills Insulin Aspart Inj (Novolog Inj) 1,000 Unit/10 Ml Vial 1-9 UNITS SQ ACHS for Blood Sugar Management, #10 ML 0 Refills Max dose at bedtime:( )units; sugars less than 70,(0)units; sugars 150-199,(1) unit; sugars 200-249,(3) units; sugars 250-299,(5) units; sugars 300-349,(7) units; sugars greater than 349,(9) units Prednisone (Prednisone) 10 Mg Tab 10 MG PO DIRECTED for steroid taper, #21 TAB 0 Refills take 20 mg by mouth twice a day for three days, then take 10 mg by mouth twice a day for three days, then take 10 mg by mouth once a day for three days, then stop Apixaban (Eliquis) 2.5 Mg Tab 2.5 MG PO BID for Blood Clot Prevention, #60 TAB 0 Refills Hydralazine HCl (Hydralazine HCl) 50 Mg Tablet 50 MG PO Q8HR for blood pressure for 30 Days, EACH 0 Refills Insulin Detemir Inj (Levemir Inj) 1,000 unit/ 10 ML Vial 15 UNITS SQ DAILYAC for elevated blood sugar, #30 INJECTION 0 Refills Do not mix with any other Insulin. Insulin Detemir Inj (Levemir Inj) 1,000 unit/ 10 ML Vial 7 UNITS SQ HS for elevated blood sugar, #30 INJECTION 0 Refills Do not mix with any other Insulin. Continued Medications: Atenolol (Atenolol) 50 Mg Tab 50 MG PO DAILY for Blood Pressure Management, #30 TAB 0 Refills Calcium Citrate-Vitamin D (Calcium Citrate Petite/) 200-250 Mg-Unit Tab 1 TAB PO BID, TAB Coenzyme Q10 (Ubidecarenone) (Co Q-10) 50 Mg-5 Unit Cap 1 TAB PO DAILY Donepezil (Donepezil) 5 Mg Tab 5 MG PO HS for Dementia, #30 TAB 0 Refills Lisinopril (Lisinopril) 20 Mg Tab 20 MG PO DAILY, #30 TAB 0 Refills Lovastatin (Lovastatin) 20 Mg Tab 20 MG PO DAILY for Cholesterol Management, #30 TAB 0 Refills Omeprazole (Omeprazole) 20 Mg Tab 20 MG PO DAILY, #30 TAB 0 Refills Paroxetine (Paroxetine) 10 Mg Tab 10 MG PO DAILY, #30 TAB 0 Refills Primidone (Primidone) 50 Mg Tab 50 MG PO BID for Control Seizures, #60 TAB 0 Refills Discontinued Medications: Nifedipine ER 24 HR (Nifedipine ER 24 HR) 30 Mg Tab 30 MG PO BID, #30 TAB 0 Refills Dennise Carlos Aug 01, 2017 09:00 Charles Herman DO Aug 01, 2017 10:52 Deangelo Mahan MD Aug 01, 2017 12:29
--- NOTE | 2017-08-01 09:01 | HHI.DCPOC ---
Discharge Care Plan Diagnosis: (1) Atrial fibrillation with RVR (2) Dementia (3) Generalized weakness (4) Diabetes mellitus (5) Right lower lobe pneumonia Goals to Promote Your Health * To prevent worsening of your condition and complications * To maintain your health at the optimal level Directions to Meet Your Goals Take your medications as prescribed Follow your dietary instruction Follow activity as directed Keep your appointments as scheduled Take your immunizations and boosters as scheduled If your symptoms worsen call your PCP, if no PCP go to Urgent Care Center or Emergency Room Smoking is Dangerous to Your Health. Avoid second hand smoke Call the 24-hour hour crisis hotline for domestic abuse at Dennise Carlos Aug 01, 2017 09:01
[2017-08-01] MEDS ORDERED: LOPERAMIDE HCL 2 MG CAP PO PRN (09:30)
[2017-08-01] MEDS ORDERED: LOPERAMIDE HCL 2 MG CAP PO ONE ×2 (09:30→13:00)
[2017-08-01 11:26] VITALS: BP 135/75; PULSE 83; RESP 18; TEMP 97.5; O2SAT 96
[2017-08-01] MEDS ORDERED: LEVEMIR SQ ×2 (11:53)
[2017-08-01 12:00] VITALS: BP 135/75; PULSE 83; RESP 18; TEMP 97.5; O2SAT 96
[2017-08-01] MEDS ORDERED: LOPE2CAP PO (12:03)
== END 2017-08-01 15:52 | DRG 871 ==
LOC: NEPC 15:04 → NEDA 18:43 → OBSVTOIN 20:56 → N07B 21:57 → HIMN 07-25 10:55 → N06A 07-29 00:34
PROVIDERS: ADMIT Hospitalist; ATTEND Hospitalist
PROC: 5A09357 Assistance with Respiratory Ventilation, Less than 24 Consecutive Hours, Continuous Positive Airway Pressure (ICD-10-PCS; principal; 2017-07-25)
DX: A41.9 Sepsis, unspecified organism (principal); I50.21 Acute systolic (congestive) heart failure; J96.01 Acute respiratory failure with hypoxia; J96.02 Acute respiratory failure with hypercapnia; J18.9 Pneumonia, unspecified organism; I13.0 Hypertensive heart and chronic kidney disease with heart failure and stage 1 through stage 4 chronic kidney disease, or unspecified chronic kidney disease; I42.9 Cardiomyopathy, unspecified; J44.0 Chronic obstructive pulmonary disease with (acute) lower respiratory infection; F03.90 Unspecified dementia, unspecified severity, without behavioral disturbance, psychotic disturbance, mood disturbance, and anxiety; J44.1 Chronic obstructive pulmonary disease with (acute) exacerbation; E11.22 Type 2 diabetes mellitus with diabetic chronic kidney disease; E11.42 Type 2 diabetes mellitus with diabetic polyneuropathy; N18.3 Chronic kidney disease, stage 3 (moderate); E78.5 Hyperlipidemia, unspecified; M19.011 Primary osteoarthritis, right shoulder; G25.81 Restless legs syndrome; I48.91 Unspecified atrial fibrillation; K04.7 Periapical abscess without sinus; E11.65 Type 2 diabetes mellitus with hyperglycemia; G25.0 Essential tremor; R19.7 Diarrhea, unspecified; D63.1 Anemia in chronic kidney disease; I08.3 Combined rheumatic disorders of mitral, aortic and tricuspid valves; K21.9 Gastro-esophageal reflux disease without esophagitis; J30.9 Allergic rhinitis, unspecified; G56.00 Carpal tunnel syndrome, unspecified upper limb; M19.012 Primary osteoarthritis, left shoulder; F32.9 Major depressive disorder, single episode, unspecified; F41.9 Anxiety disorder, unspecified; Z66 Do not resuscitate; Z85.828 Personal history of other malignant neoplasm of skin; Z96.653 Presence of artificial knee joint, bilateral; Z87.891 Personal history of nicotine dependence; R53.1 Weakness; D72.829 Elevated white blood cell count, unspecified; R50.9 Fever, unspecified; Z79.899 Other long term (current) drug therapy
CPT/HCPCS: 36600; 71045; 80048; 80053; 80061; 80162; 81001; 82805; 82948; 83036; 83605; 83690; 83735; 83880; 84100; 84132; 84443; 84484; 85025; 85027; 85610; 85730; 87040; 87493; 87804; 93005; 93306; 94002; 94003; 94150; 94640; 94664; 96361; 96374; J0360; J0696; J1160; J1650; J1815; J1940; J2020; J2270; J2405; J2543; J2930; J3475; J7030; J7512

== ENCOUNTER 2017-08-23 08:59 | Inpatient (IN) | payer MEDICARE ==
[2017-08-23] VITALS (8 sets, daily range): BP systolic 129–165; BP diastolic 61–79; PULSE 77–112; RESP 18–25; TEMP 96.5–99.1; O2SAT 92–100
[~2017-08-23] VITALS: Ht 154.9 cm; Wt 65.8 kg
[~2017-08-23 08:59] MED LIST changes: +APIX2.5T PO; -AUGM500T7 PO; +CARD180C5 PO; +HYDR-3800 PO; +LEVEMIR SQ; +LOPE2CAP PO; -NIFE30TA61 PO; +NOVOLOGP2 SQ; +PRED10 PO; -VITA150T PO
--- NOTE | 2017-08-23 09:33 | PD ---
HPI Chief Complaint: Respiratory Distress Time Seen by Provider: 09:07 Travel History International Travel<30 days: No Contact w/Intl Traveler<30days: No Traveled to known affect area: No History of Present Illness HPI Patient is an 87-year-old female presents from [facility] for evaluation of increased oxygen demand. Patient has been dependent on 2 L nasal cannula since earlier this month and she was diagnosed with pneumonia. She has completed her antibiotic therapy. She has been coughing congestion and getting worsening sickness for the past week or so. Her son arrives and confirms the history that she is gradually getting worse. She ultimately would be discharged to an assisted living facility and he has already made those arrangements. Before this bout of pneumonia which did hospitalize her the patient had not been dependent on oxygen. She states she just feels rundown. She also describes some problems with dreams lately and her son states that she appears to be having some owning but she is ultimately early with that and able to provide much of her own history. No fevers, no history of aspiration according to EMS. No chest pain or shortness of breath. Symptoms for the past week, rapidly worsening, associated signs and symptoms and context as above PFSH Past Medical History Arthritis: Yes Autoimmune Disease: No Blood Disorders: No Anxiety: No Depression: No Cancer: Yes Cardiovascular Problems: Yes High Cholesterol: Yes Diabetes: Yes Patient Takes Glucophage: No Diminished Hearing: No Endocrine: Yes Gastrointestinal Disorders: No GERD: Yes Genitourinary: Yes Hypertension: Yes Musculoskeletal: Yes (rt and left knee replacements bunyon on foot) Neurologic: Yes Psychiatric: No Respiratory: No Radiation Therapy: No Seizures: No (has tremors) Ulcer: Yes Tetanus Vaccination: Unknown Influenza Vaccination: Yes ?: Not Menopausal: Yes : 2 Para: 2 Past Surgical History Abdominal Surgery: Yes (exploratory) Gynecologic Surgery: Yes (hysterectomy) Hysterectomy: Yes (TOTAL) Insulin Pump: Yes (total knees) Other Surgery: Yes Social History Alcohol Use: No Tobacco Use: No (quit 1967) Substance Use: No Allergies-Medications (Allergen,Severity, Reaction): Coded Allergies: ketoprofen (Verified Allergy, Mild, contraindications, 07/23/17) RENAL INSUFICENCY etodolac (Unverified Adverse Reaction, Intermediate, contraindications, ) RENAL INSUFICENCY diclofenac (Unverified Adverse Reaction, Mild, contraindications, 07/23/17) RENAL INSUFICENCY flurbiprofen (Verified Adverse Reaction, Mild, contraindications, 07/23/17) RENAL INSUFICENCY ibuprofen (Verified Adverse Reaction, Mild, contraindications, 07/23/17) RENAL INSUFICENCY indomethacin (Verified Adverse Reaction, Mild, contraindications, 07/23/17) RENAL INSUFICENCY ketorolac (Verified Adverse Reaction, Mild, contraindications, 07/23/17) RENAL INSUFICENCY naproxen (Verified Adverse Reaction, Mild, contraindications, 07/23/17) RENAL INSUFICENCY oxaprozin (Verified Adverse Reaction, Mild, contraindications, 07/23/17) RENAL INSUFICENCY Reported Meds & Prescriptions Reported Meds & Active Scripts Active Loperamide (Loperamide HCl) 2 Mg Cap 2 Mg PO Q4H PRN One capsule after each loose stool. Not to exceed 8 capsules per day. Novolog Inj (Insulin Aspart) 1,000 Unit/10 Ml Vial 1-9 Units SQ ACHS Max dose at bedtime:( )units; sugars less than 70,(0)units; sugars 150-199,(1) unit; sugars 200-249,(3) units; sugars 250-299,(5) units; sugars 300-349,(7) units; sugars greater than 349,(9) units Cardizem CD 24 HR (Diltiazem CD 24 HR) 180 Mg Caper 180 Mg PO BID Hydralazine HCl 50 Mg Tablet 50 Mg PO Q8HR 30 Days Eliquis (Apixaban) 2.5 Mg Tab 2.5 Mg PO BID Reported Tylenol (Acetaminophen) 325 Mg Tab 650 Mg PO Q4H PRN Melatonin 3 Mg Tab 3 Mg PO HS Citracal-Vit D3 200 mg-250 Tab (Calcium Citrate/Vitamin D3) 200 Mg Calcium-250 Unit Tablet 1 Tab PO BID Omeprazole 20 Mg Tab 20 Mg PO DAILY Paroxetine (Paroxetine HCl) 10 Mg Tab 10 Mg PO HS Primidone 50 Mg Tab 50 Mg PO BID Donepezil 5 Mg Tab 5 Mg PO HS Co Q-10 (Coenzyme Q10 (Ubidecarenone)) 50 Mg-5 Unit Cap 1 Tab PO DAILY Lovastatin 20 Mg Tab 20 Mg PO HS Lisinopril 20 Mg Tab 20 Mg PO DAILY Atenolol 50 Mg Tab 50 Mg PO DAILY Review of Systems Except as stated in HPI: all other systems reviewed are Neg Physical Exam Narrative GENERAL: Well-developed well-nourished elderly female with head bobbing tremor in no obvious distress peer SKIN: Focused skin assessment warm/dry. HEAD: Atraumatic. Normocephalic. EYES: Pupils equal and round. No scleral icterus. No injection or drainage. ENT: No nasal bleeding or discharge. Mucous membranes pink and moist. TMs clear bilaterally, oropharynx clear, there is rattling consistent with mucus in the upper airway. NECK: Trachea midline. No JVD. CARDIOVASCULAR: Irregularly irregular with tachycardia.. No murmur appreciated. 2+ bilateral equal pulses in all 4 extremities RESPIRATORY: No accessory muscle use. Clear to auscultation. Breath sounds equal bilaterally. Difficult auscultation second upper airway mucus, good air entry and but tachypneic. GASTROINTESTINAL: Abdomen soft, non-tender, nondistended. Hepatic and splenic margins not palpable. MUSCULOSKELETAL: No obvious deformities. No clubbing. No cyanosis. No edema. NEUROLOGICAL: Awake and alert. No obvious cranial nerve deficits. Motor grossly within normal limits. Normal speech. PSYCHIATRIC: Appropriate mood and affect; insight and judgment normal. Data Data Last Documented VS Vital Signs Date Time Temp Pulse Resp B/P (MAP) Pulse Ox O2 Delivery O2 Flow Rate FiO2 08/23/17 09:37 98.9 08/23/17 09:10 110 25 156/72 (100) 92 Nasal Cannula 4.00 Orders Orders Sepsis Workup Initiated (08/23/17 ) Electrocardiogram (08/23/17 09:07) Complete Blood Count With Diff (08/23/17 09:07) Comprehensive Metabolic Panel (08/23/17 09:07) Prothrombin Time / Inr (Pt) (08/23/17 09:07) Act Partial Throm Time (Ptt) (08/23/17 09:07) Lactic Acid Sepsis Protocol (08/23/17 09:07) Magnesium (Mg) (08/23/17 09:07) Phosphorus (Po4) (08/23/17 09:07) Lipase (08/23/17 09:07) Ckmb (Isoenzyme) Profile (08/23/17 09:07) Troponin I (08/23/17 09:07) Urinalysis - C+S If Indicated (08/23/17 09:07) Blood Culture (08/23/17 09:07) Chest, Single Ap (08/23/17 09:07) Ecg Monitoring (08/23/17 09:07) Iv Access Insert/Monitor (08/23/17 09:07) Oximetry (08/23/17 09:07) Oxygen Administration (08/23/17 09:07) Vancomycin Inj (Vancomycin Inj) (08/23/17 09:45) Piperacil-Tazo 4.5 Gm Premix (Zosyn 4.5 (08/23/17 09:45) Albuterol-Ipratropium Neb (Duoneb Neb) (08/23/17 10:15) Admit To Inpatient (08/23/17 ) Code Status (08/23/17 10:26) Vital Signs (Adult) Q4H (08/23/17 10:26) Activity Oob With Assistance (08/23/17 10:26) Mechanical Cad Drafter / Telemetry .CONTINUOUS (08/23/17 10:26) Sodium Chloride 0.9% Flush (Ns Flush) (08/23/17 10:30) Sodium Chloride 0.9% Flush (Ns Flush) (08/23/17 21:00) Acetaminophen (Tylenol) (08/23/17 10:30) Ondansetron Inj (Zofran Inj) (08/23/17 10:30) Basic Metabolic Panel (Bmp) (08/24/17 06:00) Complete Blood Count With Diff (08/24/17 06:00) Chest, Pa & Lat (08/24/17 06:00) Resp Oxygen Ender C Titrat 1-4 L (08/23/17 ) Pt Request For Service (08/23/17 10:26) Scd Bilateral/Knee High NORY.BID (08/23/17 10:26) Naloxone Inj (Narcan Inj) (08/23/17 10:30) Magnesium Hydroxide Liq (Milk Of Magnesi (08/23/17 10:30) Inpatient Certification (08/23/17 ) Furosemide Inj (Lasix Inj) (08/23/17 10:30) Magnesium (Mg) (08/24/17 06:00) Apixaban (Eliquis) (08/23/17 13:00) Atenolol (Tenormin) (08/23/17 10:30) Diltiazem Cd (Cardizem Cd) (08/23/17 13:00) Donepezil (Aricept) (08/23/17 21:00) Hydralazine (Apresoline) (08/23/17 14:00) Lisinopril (Prinivil) (08/24/17 09:00) Pravastatin (Pravachol) (08/23/17 10:30) Primidone (Mysoline) (08/23/17 21:00) Pantoprazole (Protonix) (08/23/17 13:00) Paroxetine (Paxil) (08/24/17 09:00) Ct Thorax/ Chest Wo Iv Contras (08/23/17 ) Admit Order (Ed Use Only) (08/23/17 ) Labs Laboratory Tests Test 08/23/17 09:15 08/23/17 09:20 White Blood Count 7.2 TH/MM3 Red Blood Count 3.34 MIL/MM3 Hemoglobin 10.5 GM/DL Hematocrit 30.9 % Mean Corpuscular Volume 92.5 FL Mean Corpuscular Hemoglobin 31.6 PG Mean Corpuscular Hemoglobin Concent 34.2 % Red Cell Distribution Width 14.5 % Platelet Count 303 TH/MM3 Mean Platelet Volume 8.3 FL Neutrophils (%) (Auto) 84.1 % Lymphocytes (%) (Auto) 6.0 % Monocytes (%) (Auto) 9.3 % Eosinophils (%) (Auto) 0.2 % Basophils (%) (Auto) 0.4 % Neutrophils # (Auto) 6.0 TH/MM3 Lymphocytes # (Auto) 0.4 TH/MM3 Monocytes # (Auto) 0.7 TH/MM3 Eosinophils # (Auto) 0.0 TH/MM3 Basophils # (Auto) 0.0 TH/MM3 CBC Comment AUTO DIFF Differential Comment AUTO DIFF CONFIRMED Platelet Estimate NORMAL Platelet Morphology Comment NORMAL Ovalocytes 1+ Prothrombin Time 9.9 SEC Prothromb Time International Ratio 1.0 RATIO Activated Partial Thromboplast Time 21.0 SEC Blood Urea Nitrogen 28 MG/DL Creatinine 1.10 MG/DL Random Glucose 132 MG/DL Total Protein 6.3 GM/DL Albumin 2.2 GM/DL Calcium Level 8.4 MG/DL Phosphorus Level 2.5 MG/DL Magnesium Level 2.3 MG/DL Alkaline Phosphatase 75 U/L Aspartate Amino Transf (AST/SGOT) 15 U/L Alanine Aminotransferase (ALT/SGPT) 16 U/L Total Bilirubin 0.3 MG/DL Sodium Level 132 MEQ/L Potassium Level 5.0 MEQ/L Chloride Level 97 MEQ/L Carbon Dioxide Level 28.3 MEQ/L Anion Gap 7 MEQ/L Estimat Glomerular Filtration Rate 47 ML/MIN Total Creatine Kinase 41 U/L Troponin I LESS THAN 0.02 NG/ML Lipase 231 U/L Lactic Acid Level 0.8 mmol/L [facility] Medical Decision Making Medical Screen Exam Complete: Yes Emergency Medical Condition: Yes Differential Diagnosis Pneumonia, sepsis, URI, CHF, atrial fibrillation with RVR. Narrative Course Patient room to the emergency department, her chest x-ray today comparison to July 29 shows a new infiltrate versus effusion and possible aspiration of the right lower lobe. This would represent a healthcare associated pneumonia. The patient was started on vancomycin and Zosyn, her labs show normal white blood cell count but a significant shift towards neutrophils. Lactic acid is normal. She is tachycardic and tachypneic atrial fibrillation RVR with highest rates in the 130s, was given a dose of Cardizem. She was also given 1 dose of DuoNeb in the emergency department. Will be discussed with [facility] for admission. Patient lactic acid normal negating the need for aggressive fluid resuscitation not to mention she has a history of CHF which may get worse with fluid overload. Discussed the patient she has continuing wishes to be a DNR and DNI. Diagnosis Primary Impression: Sepsis Additional Impressions: Pneumonia Atrial fibrillation with RVR Admitting Information Admitting Physician Requests: Admit Condition: Stable Paulo Vargas MD Aug 23, 2017 09:33
[2017-08-23 09:40] LABS: BASOPHIL % 0.4 % (0.0-2.0); EOSINOPHIL % 0.2 % (0.0-4.0); HEMATOCRIT 30.9 % (35.0-46.0); HEMOGLOBIN 10.5 GM/DL (11.6-15.3); LYMPHOCYTE # 0.4 TH/MM3 (1.0-4.8); MEAN CELL VOLUME 92.5 FL (80.0-100.0); MEAN CORPUSCULAR HEMOGLOBIN 31.6 PG (27.0-34.0); MEAN CORPUSCULAR HGB CONC 34.2 % (32.0-36.0); MEAN PLATELET VOLUME 8.3 FL (7.0-11.0); MONO % 9.3 % (0.0-8.0); MONOCYTE # 0.7 TH/MM3 (0-0.9); NEUT % 84.1 % (16.0-70.0); PLATELET COUNT 303 TH/MM3 (150-450); RED BLOOD COUNT 3.34 MIL/MM3 (4.00-5.30); RED CELL DISTRIBUTION WIDTH 14.5 % (11.6-17.2); WHITE BLOOD COUNT 7.2 TH/MM3 (4.0-11.0)
[2017-08-23] MEDS ORDERED: VANCOMYCIN INJ 1,000 MG in SODIUM CHLOR 0.9% 250 ML INJ 250 ML IV ONE (09:45)
[2017-08-23] MEDS ORDERED: PIPERACIL-TAZO 4.5 GM PREMIX 100 ML IV ONE (09:45)
[2017-08-23 09:55] LABS: PROTHROMBIN TIME - PATIENT 9.9 SEC (9.8-11.6)
[2017-08-23 10:00] LABS: ALBUMIN 2.2 GM/DL (3.4-5.0); AST (GOT) 15 U/L (15-37); BICARBONATE 28.3 MEQ/L (21.0-32.0); BLOOD UREA NITROGEN 28 MG/DL (7-18); CALCIUM 8.4 MG/DL (8.5-10.1); CHLORIDE 97 MEQ/L (98-107); GLOMERULAR FILTRATION RATE 47 ML/MIN (>89); GLUCOSE,RANDOM 132 MG/DL (74-106); MAGNESIUM 2.3 MG/DL (1.5-2.5); SODIUM (NA) 132 MEQ/L (136-145)
--- NOTE | 2017-08-23 10:00 | RADRPT ---
EXAM DATE/TIME: 08/23/2017 09:18 [facility] COMPARISON: CHEST SINGLE AP, July 29, 2017, 6:17. INDICATIONS : Short of breath. MEDICAL HISTORY : Congestive heart failure. Cardiovascular disease. SURGICAL HISTORY : None. ENCOUNTER: Initial ACUITY: 1 day PAIN SCORE: 0/10 LOCATION: Bilateral chest FINDINGS: Heart size is enlarged and there is basilar airspace consolidation. Differential diagnosis includes p neumonia and aspiration. Small bilateral pleural effusions. No pneumothorax. Advanced arthropathy of the shoulders with chronic erosive changes bilaterally. CONCLUSION: 1. Cardiomegaly with basilar airspace disease. Differential diagnosis includes infection/aspiration a nd possibly mild edema. Rikki Hardin MD on August 23, 2017 at 9:55 Board Certified Radiologist. This report was verified electronically.
[2017-08-23 10:01] LABS: ALT (GPT) 16 U/L (10-53); PHOSPHORUS 2.5 MG/DL (2.5-4.9)
[2017-08-23 10:10] LABS: OVALOCYTES 1+ (NORMAL)
[2017-08-23 10:12] LABS: ALKALINE PHOSPHATASE 75 U/L (45-117); TOTAL BILIRUBIN ADULT 0.3 MG/DL (0.2-1.0); TOTAL PROTEIN 6.3 GM/DL (6.4-8.2); TROPONIN I LESS THAN 0.02 NG/ML (0.02-0.05)
[2017-08-23] MEDS ORDERED: DILTIAZEM HCL 25 MG/5 ML VIAL IV PUSH ONE (10:15)
[2017-08-23] MEDS ORDERED: RESP: ALBUTEROL 2.5 MG/IPRATROPIUM 0.5 MG NEB (SCH) NEB ONE (10:15)
[2017-08-23] MEDS ORDERED: MAGNESIUM HYDROXIDE SUSP 30 ML CUP PO PRN (10:30)
[2017-08-23] MEDS ORDERED: ACETAMINOPHEN 325 MG TAB PO PRN (10:30)
[2017-08-23] MEDS ORDERED: NALOXONE HCL 0.4 MG/ML AMP IV PUSH PRN (10:30)
[2017-08-23] MEDS ORDERED: SODIUM CHLORIDE 0.9% FLUSH 10 ML FLUSH IV FLUSH PRN (10:30)
[2017-08-23] MEDS ORDERED: ONDANSETRON HCL 4 MG/2 ML VIAL IVP PRN (10:30)
[2017-08-23] MEDS ORDERED: FUROSEMIDE 40 MG/4 ML VIAL IV PUSH ONE (10:30)
[2017-08-23] MEDS ORDERED: DILTIAZEM HCL 50 MG/10 ML VIAL IV PUSH ONE (11:00)
--- NOTE | 2017-08-23 11:17 | RADRPT ---
EXAM DATE/TIME: 08/23/2017 11:00 [facility] COMPARISON: No previous studies available for comparison. INDICATIONS : Shortness of breath RADIATION DOSE: 10.23 CTDIvol (mGy) MEDICAL HISTORY : Seizures. Cardiovascular disease Hypertension. Diabetes SURGICAL HISTORY : Hysterectomy. ENCOUNTER: Initial ACUITY: 1 day PAIN SCALE: 0/10 LOCATION: chest TECHNIQUE: Volumetric scanning of the chest was performed. Using automated exposure control and adjustment of t he mA and/or kV according to patient size, radiation dose was kept as low as reasonably achievable to obtain optimal diagnostic quality images. DICOM format image data is available electronically for r eview and comparison. Follow-up recommendations for detected pulmonary nodules are based at a minimum on nodule size and pa tient risk factors according to Fleischner Society Guidelines. FINDINGS: There are moderate bilateral pleural effusions with dependent consolidation in both lungs. Consolidat ion is once again seen at the right lung base with some distal airway disease. Primary differential d iagnosis is pneumonia and aspiration. Heart size is enlarged. Mild coronary calcifications. Mild anasarca. Advanced arthropathy of the shoulders. CONCLUSION: 1. Moderate pleural effusions with dependent consolidation and atelectasis in both lungs. More extens lillian airspace disease the right lung base extending into the right middle lobe most characteristic of pneumonia or aspiration. 2. Cardiomegaly with mild coronary calcifications. 3. Advanced arthropathy of the shoulders with chronic remodeling of the glenoid. Rikki Hardin MD on August 23, 2017 at 11:11 Board Certified Radiologist. This report was verified electronically.
[2017-08-23] MEDS: PRAVASTATIN SOD 20 MG TAB PO SCH (11:24)
[2017-08-23] MEDS: ATENOLOL 50 MG TAB PO SCH (11:24)
[2017-08-23] MEDS ORDERED: CITRTAB8 PO (12:01)
[2017-08-23] MEDS ORDERED: MELA3TAB52 PO (12:01)
[2017-08-23] MEDS ORDERED: TYLE325T PO (12:01)
[2017-08-23] MEDS ORDERED: APIXABAN 2.5 MG TABLET PO SCH (13:00)
[2017-08-23 13:12] LABS: BILIRUBIN, URINE NEG (NEG); BLOOD, URINE NEG (NEG); GLUCOSE,URINE NEG (NEG); KETONE, URINE NEG (NEG); NITRITE,URINE NEG (NEG); SQUAMOUS EPITHELIAL CELL URINE 2 /hpf (0-5); URINE COLOR YELLOW (YELLW/STRAW); URINE LEUKOCYTE ESTERASE TRACE (NEG)
[2017-08-23] MEDS: DILTIAZEM-CD 180 MG CAP ER PO SCH ×2 (14:00→20:15)
[2017-08-23] MEDS: PANTOPRAZOLE SOD 20 MG DELAYED RELEASE TAB PO SCH (14:00)
[2017-08-23] MEDS ORDERED: hydrALAZINE HCL 50 MG TAB PO SCH (14:00)
--- NOTE | 2017-08-23 15:54 | EKG ---
Date Performed: 08/23/2017 Time Performed: 09:12:02 PTAGE: 87 years EKG: ATRIAL FIBRILLATION WITH RAPID VENTRICULAR RESPONSE ABNORMAL RHYTHM ECG INTERPRETATION BASE D ON A DEFAULT AGE OF 40 YEARS PREVIOUS TRACING : 08/23/2017 09.11 Atrial fibrilaltion is new since prior tracing. Clini laura correlation is recommended. DOCTOR: Corey Boyd Interpretating Date/Time 08/23/2017 15:52:57
--- NOTE | 2017-08-23 17:35 | HHI.HP ---
HPI Service [facility] Hospitalists Primary Care Physician Vernon Martinez MD Admission Diagnosis Healthcare associated PNA. Afib RVR, Hypoxic respiratory failure. Chief Complaint: Cough, hypoxia Travel History International Travel<30 Days: No Contact w/Intl Traveler <30 Da: No Traveled to Known Affected Are: No History of Present Illness Ms. Hernández is an 87 y/o female with HTN, hyperlipidemia, diabetes, CKD, stage 3, and memory loss who was brought to the ER at [facility] on 08[place]23[place] from a local rehab facility for increased O2 requirements. Pt was previously hospitalized from 07/23/17 to 08/01/17 for RLL pneumonia. During that admission she required BiPAP for hypoxia and was treated with Solu-Medrol, Abx and Duoebs. She was treated with Zosyn and Zyvox during that admission and discharged on a Prednisone taper She improved clinically and was discharged to SNF. She was brought back to the ED today with increased O2 demand. She has reportedly been coughing and had increased congestion worsening for the past week or so. She has been placed back on supplemental O2 for the last 2 days and her O2 requirements have reportedly been increasing. There were no reported fevers or history of aspiration according to the pts son. No chest pain or shortness of breath. CXR in the ED noted cardiomegaly with basilar airspace disease. CT Thorax in the ED noted moderate pleural effusions with dependent consolidation and atelectasis in both lungs, more extensive airspace disease the right lung base extending into the right middle lobe most characteristic of pneumonia or aspiration, cardiomegaly with mild coronary calcifications, and advanced arthropathy of the shoulders with chronic remodeling of the glenoid. Son who is present at the bedside for examination reports that the pt has no coughing or choking with eating. Review of Systems ROS Limitations: Poor Historian Constitutional: DENIES: Fever, Chills Respiratory: COMPLAINS OF: Cough, Sputum production, Shortness of breath Cardiovascular: DENIES: Chest pain, Lower Extremity Edema Gastrointestinal: DENIES: Abdominal pain, Constipation, Diarrhea, Nausea, Vomiting Genitourinary: DENIES: Urinary frequency Musculoskeletal: DENIES: Back pain Integumentary: DENIES: Rash Neurologic: DENIES: Headache Psychiatric: COMPLAINS OF: Confusion Past Family Social History Past Medical History Systolic CHF, 2D echo (2/25/18) --> EF 30-35%. Decrease left ventricular systolic function. Moderate MR. 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 Not to exceed 8 capsules per day. Novolog Inj (Insulin Aspart) 1,000 Unit/10 Ml Vial 1-9 Units SQ ACHS Max dose at bedtime:( )units; sugars less than 70,(0)units; sugars 150-199,(1) unit; sugars 200-249,(3) units; sugars 250-299,(5) units; sugars 300-349,(7) units; sugars greater than 349,(9) units Cardizem CD 24 HR (Diltiazem CD 24 HR) 180 Mg Caper 180 Mg PO BID Hydralazine HCl 50 Mg Tablet 50 Mg PO Q8HR 30 Days Eliquis (Apixaban) 2.5 Mg Tab 2.5 Mg PO BID Tylenol (Acetaminophen) 325 Mg Tab 650 Mg PO Q4H PRN Melatonin 3 Mg Tab 3 Mg PO HS Citracal-Vit D3 200 mg-250 Tab (Calcium Citrate/Vitamin D3) 200 Mg Calcium-250 Unit Tablet 1 Tab PO BID Omeprazole 20 Mg Tab 20 Mg PO DAILY Paroxetine (Paroxetine HCl) 10 Mg Tab 10 Mg PO HS Primidone 50 Mg Tab 50 Mg PO BID Donepezil 5 Mg Tab 5 Mg PO HS Co Q-10 (Coenzyme Q10 (Ubidecarenone)) 50 Mg-5 Unit Cap 1 Tab PO DAILY Lovastatin 20 Mg Tab 20 Mg PO HS Lisinopril 20 Mg Tab 20 Mg PO DAILY Atenolol 50 Mg Tab 50 Mg PO DAILY Allergies: Coded Allergies: ketoprofen (Verified Allergy, Mild, contraindications, 07/23/17) RENAL INSUFICENCY etodolac (Unverified Adverse Reaction, Intermediate, contraindications, ) RENAL INSUFICENCY diclofenac (Unverified Adverse Reaction, Mild, contraindications, 07/23/17) RENAL INSUFICENCY flurbiprofen (Verified Adverse Reaction, Mild, contraindications, 07/23/17) RENAL INSUFICENCY ibuprofen (Verified Adverse Reaction, Mild, contraindications, 07/23/17) RENAL INSUFICENCY indomethacin (Verified Adverse Reaction, Mild, contraindications, 07/23/17) RENAL INSUFICENCY ketorolac (Verified Adverse Reaction, Mild, contraindications, 07/23/17) RENAL INSUFICENCY naproxen (Verified Adverse Reaction, Mild, contraindications, 07/23/17) RENAL INSUFICENCY oxaprozin (Verified Adverse Reaction, Mild, contraindications, 07/23/17) RENAL INSUFICENCY Family History Noncontributory Social History Denies any alcohol, tobacco or illicit drug use Physical Exam Vital Signs Vital Signs Date Time Temp Pulse Resp B/P (MAP) Pulse Ox O2 Delivery O2 Flow Rate FiO2 08/23/17 16:00 96.5 103 18 129/67 (87) 100 08/23/17 14:15 08/23/17 14:10 112 25 165/79 (107) 94 Nasal Cannula 4.00 08/23/17 11:10 77 25 144/63 (90) 93 Nasal Cannula 4.00 08/23/17 09:37 98.9 08/23/17 09:10 99.1 110 25 156/72 (100) 92 Nasal Cannula 4.00 08/23/17 09:10 25 92 Nasal Cannula 4.00 08/23/17 09:10 92 Nasal Cannula 4.00 08/23/17 09:10 110 25 92 Nasal Cannula 4.00 08/23/17 09:07 99.1 107 25 156/72 (100) 92 Physical Exam GENERAL: This is a well-nourished, well-developed patient, in no apparent distress. HEENT: Atraumatic. Normocephalic. No temporal or scalp tenderness. No scleral icterus. Airway patent. NECK: Trachea midline, supple, nontender. CARDIO: Irregular RESP: Decreased breath sounds at the bases bilaterally. ABD: +BS, soft, non-tender, nondistended. EXT: 2+ Bilateral LE pitting edema. NEURO: Awake and alert. Motor and sensory grossly within normal limits. Normal speech. Laboratory Laboratory Tests Test 08/23/17 09:15 08/23/17 09:20 08/23/17 13:00 White Blood Count 7.2 Red Blood Count 3.34 Hemoglobin 10.5 Hematocrit 30.9 Mean Corpuscular Volume 92.5 Mean Corpuscular Hemoglobin 31.6 Mean Corpuscular Hemoglobin Concent 34.2 Red Cell Distribution Width 14.5 Platelet Count 303 Mean Platelet Volume 8.3 Neutrophils (%) (Auto) 84.1 Lymphocytes (%) (Auto) 6.0 Monocytes (%) (Auto) 9.3 Eosinophils (%) (Auto) 0.2 Basophils (%) (Auto) 0.4 Neutrophils # (Auto) 6.0 Lymphocytes # (Auto) 0.4 Monocytes # (Auto) 0.7 Eosinophils # (Auto) 0.0 Basophils # (Auto) 0.0 CBC Comment AUTO DIFF Differential Comment AUTO DIFF CONFIRMED Platelet Estimate NORMAL Platelet Morphology Comment NORMAL Ovalocytes 1+ Prothrombin Time 9.9 Prothromb Time International Ratio 1.0 Activated Partial Thromboplast Time 21.0 Blood Urea Nitrogen 28 Creatinine 1.10 Random Glucose 132 Total Protein 6.3 Albumin 2.2 Calcium Level 8.4 Phosphorus Level 2.5 Magnesium Level 2.3 Alkaline Phosphatase 75 Aspartate Amino Transf (AST/SGOT) 15 Alanine Aminotransferase (ALT/SGPT) 16 Total Bilirubin 0.3 Sodium Level 132 Potassium Level 5.0 Chloride Level 97 Carbon Dioxide Level 28.3 Anion Gap 7 Estimat Glomerular Filtration Rate 47 Total Creatine Kinase 41 Troponin I LESS THAN 0.02 Lipase 231 Lactic Acid Level 0.8 Urine Color YELLOW Urine Turbidity CLEAR Urine pH 7.0 Urine Specific [place] 1.009 Urine Protein TRACE Urine Glucose (UA) NEG Urine Ketones NEG Urine Occult Blood NEG Urine Nitrite NEG Urine Bilirubin NEG Urine Urobilinogen LESS THAN 2.0 Urine Leukocyte Esterase TRACE Urine RBC LESS THAN 1 Urine WBC 2 Urine Squamous Epithelial Cells 2 Microscopic Urinalysis Comment CATH-CULT NOT IND Date/Time Source Procedure Growth Status 08/23/17 09:20 Blood Peripheral Aerobic Blood Culture Pending Received 08/23/17 09:20 Blood Peripheral Anaerobic Blood Culture Pending Received Result Diagram: 08/23/1715 08/23/1715 Imaging Last Impressions Chest X-Ray 08/23/1707 Signed Impressions: Service Date/Time: Wednesday, August 23, 2017 09:18 - CONCLUSION: 1. Cardiomegaly with basilar airspace disease. Differential diagnosis includes infection/aspiration and possibly mild edema. Rikki Hardin MD Chest CT 08/23/17 0000 Signed Impressions: Service Date/Time: Wednesday, August 23, 2017 11:00 - CONCLUSION: 1. Moderate pleural effusions with dependent consolidation and atelectasis in both lungs. More extensive airspace disease the right lung base extending into the right middle lobe most characteristic of pneumonia or aspiration. 2. Cardiomegaly with mild coronary calcifications. 3. Advanced arthropathy of the shoulders with chronic remodeling of the glenoid. Rikki Hardin MD Caprini VTE Risk Assessment Caprini VTE Risk Assessment: Mod/High Risk (score >= 2) Caprini Risk Assessment Model Point Value = 1 Point Value = 2 Point Value = 3 Point Value = 5 Age 41-60 Minor surgery BMI > 25 kg/m2 Swollen legs Varicose veins or History of unexplained or recurrent spontaneous Oral contraceptives or hormone replacement Sepsis (< 1 month) Serious lung disease, including pneumonia (< 1 month) Abnormal pulmonary function Acute myocardial infarction Congestive heart failure (< 1 month) History of inflammatory bowel disease Medical patient at bed rest Age 61-74 Arthroscopic surgery Major open surgery (> 45 min) Laparoscopic surgery (> 45 min) Malignancy Confined to bed (> 72 hours) Immobilizing plaster cast Central venous access Age >= 75 History of VTE Family history of VTE Factor V Leiden Prothrombin [id number] Lupus anticoagulant Anticardiolipin antibodies Elevated serum homocysteine Heparin-induced thrombocytopenia Other congenital or acquired thrombophilia Stroke (< 1 month) Elective arthroplasty Hip, pelvis, or leg fracture Acute spinal cord injury (< 1 month) Prophylaxis Regimen Total Risk Factor Score Risk Level Prophylaxis Regimen 0-1 Low Early ambulation 2 Moderate Order ONE of the following: *Sequential Compression Device (SCD) *Heparin 5000 units SQ BID 3-4 Higher Order ONE of the following medications: *Heparin 5000 units SQ TID *Enoxaparin/Lovenox 40 mg SQ daily (WT < 150 kg, CrCl > 30 mL/min) *Enoxaparin/Lovenox 30 mg SQ daily (WT < 150 kg, CrCl > 10-29 mL/min) *Enoxaparin/Lovenox 30 mg SQ BID (WT < 150 kg, CrCl > 30 mL/min) AND/OR *Sequential Compression Device (SCD) 5 or more Highest Order ONE of the following medications: *Heparin 5000 units SQ TID (Preferred with Epidurals) *Enoxaparin/Lovenox 40 mg SQ daily (WT < 150 kg, CrCl > 30 mL/min) *Enoxaparin/Lovenox 30 mg SQ daily (WT < 150 kg, CrCl > 10-29 mL/min) *Enoxaparin/Lovenox 30 mg SQ BID (WT < 150 kg, CrCl > 30 mL/min) AND *Sequential Compression Device (SCD) Assessment and Plan Problem List: (1) Systolic CHF, acute on chronic ICD Codes: I50.23 - Acute on chronic systolic (congestive) heart failure Status: Acute Plan: Acute systolic CHF, volume overload Hypoxia Pleural effusions Hx of RLL pneumonia - Pt is an 87 y/o female with HTN, hyperlipidemia, diabetes, CKD, stage 3, and memory loss who was brought to the ER at [facility] on 08/23/[place] from a local rehab facility for increased O2 requirements. - Pt was previously hospitalized from 07/23/17 to 08/01/17 for RLL pneumonia. During that admission she required BiPAP for hypoxia and was treated with Solu-Medrol, Abx and Duoebs. She was treated with Zosyn and Zyvox during that admission and discharged on a Prednisone taper. Pt was also treated with IV Lasix and Aldactone as well. She improved clinically and was discharged to SNF. - She was brought back to the ED today with increased O2 demand. She has reportedly been coughing and had increased congestion worsening for the past week or so. She has been placed back on supplemental O2 for the last 2 days and her O2 requirements have reportedly been increasing. - Pt was given a dose of Vancomycin and Zosyn in the ED - Labs show normal white blood cell count but a significant shift towards neutrophils. - She was given DuoNeb treatment in the ED - CXR (08/23) -->Cardiomegaly with basilar airspace disease. - Noncontrasted CT Thorax (08/23) --> Moderate pleural effusions with dependent consolidation and atelectasis in both lungs, more extensive airspace disease the right lung base extending into the right middle lobe most characteristic of pneumonia or aspiration, cardiomegaly with mild coronary calcifications, and advanced arthropathy of the shoulders with chronic remodeling of the glenoid. - Pt was given a dose of IV Lasix given at admission - ST evaluation reported no S/S of aspiration with thin liquids and was recommended pureed diet. - Pt is requiring 4L NC - 2D echo (07/24/17) --> EF 30-35%. Decrease left ventricular systolic function. Moderate MR. PAP 26.2 mmHg - Pt is not on any diuretics as an outpt - We will given another one time dose of IV Lasix this evening - Recheck labs and CXR in AM and then decide about continued diuresis - Daily weight and I&Os - DVT prophylaxis with SCDs A. fib RVR - In the ED pt was tachycardic and tachypneic in atrial fibrillation RVR with highest rates in the 130s - She was given a dose of Cardizem IV with improvement in the HR. - Cont. Cardizem 180mg po BID - Hold Eliquis, this was reportedly stopped at the rehab due to decrease in her H/H. May need to consider restarting as Hgb at admission is 10.5 and is fairly stable compared to labs during previous admission - Repeat labs in AM - Telemetry HTN (hypertension) - Continued and Atenolol 50mg po daily and Cardizem - Decreased hydralazine to 25 mg Q8H with parameters and stop Lisinopril to try to avoid hypotension during diuresis - Monitor BP Tremor - Home medications continued Dementia - Continue Donepezil 5 mg p.o. daily CKD, stage 3 - Labs at admission are stable - Monitor (2) Hypoxia ICD Codes: R09.02 - Hypoxemia Status: Acute (3) Right lower lobe pneumonia ICD Codes: J18.1 - Lobar pneumonia, unspecified organism Status: Chronic (4) Dementia ICD Codes: F03.90 - Unspecified dementia without behavioral disturbance Status: Chronic (5) Atrial fibrillation with RVR ICD Codes: I48.91 - Unspecified atrial fibrillation Status: Acute (6) HTN (hypertension) ICD Codes: I10 - Essential (primary) hypertension Status: Chronic (7) Tremor ICD Codes: R25.1 - Tremor Status: Chronic (8) Diabetes mellitus ICD Codes: E11.9 - Type 2 diabetes mellitus without complications Status: Chronic Assessment and Plan Patient examined. Assessment and plan formulated with Tricia Mcallister PA-C. I agree with the above. In view of Cardiomyopathy, pronounced LE edema, and increased oxygen requirements. Pt appears to having acute on chronic systolic CHF. No fever or leukocytosis. Pneumonia is less likely. Will carefully dose IV lasix and observe response. Decrease antihypertensives to avoid hypotension with IV lasix. Physician Certification 2 Midnight Certification Type: Admission for Inpatient Services Order for Inpatient Services The services are ordered in accordance with Medicare regulations or non- Medicare payer requirements, as applicable. In the case of services not specified as inpatient-only, they are appropriately provided as inpatient services in accordance with the 2-midnight benchmark. Estimated LOS (days): 3 3 days is the estimated time the patient will need to remain in the hospital, assuming treatment plan goals are met and no additional complications. Post-Hospital Plan: Not yet determined Tricia Mcallister Aug 23, 2017 17:35 Charles Herman DO Aug 24, 2017 03:06
[2017-08-23] MEDS ORDERED: FUROSEMIDE 20 MG/2 ML VIAL IV PUSH ONE (18:15)
[2017-08-23] MEDS: DONEPEZIL HCL 5 MG TAB PO SCH (20:15)
[2017-08-23] MEDS: SODIUM CHLORIDE 0.9% FLUSH 10 ML FLUSH IV FLUSH SCH (20:16)
[2017-08-23] MEDS: PRIMIDONE 50 MG TAB PO SCH (20:55)
[2017-08-23] MEDS: hydrALAZINE HCL 50 MG TAB PO SCH (21:01)
[2017-08-24] VITALS (7 sets, daily range): BP systolic 135–151; BP diastolic 65–84; PULSE 88–98; RESP 20; TEMP 97.5–97.8; O2SAT 95–96
[2017-08-24] MEDS: hydrALAZINE HCL 50 MG TAB PO SCH ×3 (05:25→21:52)
[2017-08-24] MEDS ORDERED: PILL SPLITTER OTHER PRN (09:00)
[2017-08-24] MEDS ORDERED: LISINOPRIL 20 MG TAB PO SCH (09:00)
--- NOTE | 2017-08-24 09:04 | RADRPT ---
EXAM DATE/TIME: 08/24/2017 08:46 [facility] COMPARISON: CHEST SINGLE AP, August 23, 2017, 9:18. CHEST PA & LAT, January 18, 2016, 10:31. INDICATIONS : Short of breath. MEDICAL HISTORY : Cardiovascular disease. SURGICAL HISTORY : None. ENCOUNTER: Subsequent ACUITY: 1 month PAIN SCORE: 0/10 LOCATION: Bilateral chest FINDINGS: There continues to be a mild patchy infiltrate in the right lung base. Otherwise, the rest lung field s remain clear and well-aerated. Heart size is stable. The bony structures are stable. No significant change compared to the prior study. CONCLUSION: Stable mild infiltrate in the right lung base. Ramesh Finnegan MD on August 24, 2017 at 9:01 Board Certified Radiologist. This report was verified electronically.
[2017-08-24] MEDS: PANTOPRAZOLE SOD 20 MG DELAYED RELEASE TAB PO SCH (09:24)
[2017-08-24] MEDS: PARoxetine HCL 20 MG TAB PO SCH (09:24)
[2017-08-24] MEDS: PRIMIDONE 50 MG TAB PO SCH ×2 (09:24→21:53)
[2017-08-24] MEDS: ATENOLOL 50 MG TAB PO SCH (09:24)
[2017-08-24] MEDS: DILTIAZEM-CD 180 MG CAP ER PO SCH ×2 (09:24→21:52)
[2017-08-24] MEDS: SODIUM CHLORIDE 0.9% FLUSH 10 ML FLUSH IV FLUSH SCH ×2 (09:24→21:53)
[2017-08-24] MEDS: PRAVASTATIN SOD 20 MG TAB PO SCH (09:24)
[2017-08-24 10:25] LABS: AUTOMATED NEUTROPHIL # 7.7 TH/MM3 (1.8-7.7); BASOPHIL % 0.1 % (0.0-2.0); HEMATOCRIT 28.6 % (35.0-46.0); HEMOGLOBIN 9.6 GM/DL (11.6-15.3); LYMPH % 3.9 % (9.0-44.0); LYMPHOCYTE # 0.3 TH/MM3 (1.0-4.8); MEAN CELL VOLUME 91.9 FL (80.0-100.0); MEAN CORPUSCULAR HGB CONC 33.7 % (32.0-36.0); MEAN PLATELET VOLUME 7.9 FL (7.0-11.0); MONO % 7.8 % (0.0-8.0); MONOCYTE # 0.7 TH/MM3 (0-0.9); NEUT % 88.2 % (16.0-70.0); PLATELET COUNT 353 TH/MM3 (150-450); RED BLOOD COUNT 3.11 MIL/MM3 (4.00-5.30); RED CELL DISTRIBUTION WIDTH 14.1 % (11.6-17.2); WHITE BLOOD COUNT 8.7 TH/MM3 (4.0-11.0)
[2017-08-24 11:13] LABS: CREATININE 1.41 MG/DL (0.50-1.00); MAGNESIUM 2.2 MG/DL (1.5-2.5)
--- NOTE | 2017-08-24 18:11 | HHI.PR ---
Subjective Remarks Patient continues to have SOB with minimal exertions reports unable to sleep last night - request sleeping pill Objective Vitals Vital Signs Date Time Temp Pulse Resp B/P (MAP) Pulse Ox O2 Delivery O2 Flow Rate FiO2 08/24/17 16:00 97.5 88 20 149/84 (105) 95 08/24/17 14:00 Nasal Cannula 4.00 08/24/17 12:00 97.5 95 20 135/69 (91) 95 08/24/17 12:00 92 08/24/17 11:08 97 08/24/17 09:30 Nasal Cannula 4.00 08/24/17 08:00 97.7 94 20 144/69 (94) 96 08/24/17 04:00 97.5 93 20 148/67 (94) 96 08/23/17 23:45 98.1 103 20 145/72 (96) 94 08/23/17 20:13 Nasal Cannula 4.00 08/23/17 20:00 94 Nasal Cannula 4.00 08/23/17 20:00 97.5 103 20 130/61 (84) 94 Result Diagram: 08/24/17 0940 08/24/17 0940 Other Results Laboratory Tests Test 08/23/17 09:15 08/23/17 09:20 08/23/17 13:00 08/24/17 09:40 White Blood Count 7.2 TH/MM3 8.7 TH/MM3 Red Blood Count 3.34 MIL/MM3 3.11 MIL/MM3 Hemoglobin 10.5 GM/DL 9.6 GM/DL Hematocrit 30.9 % 28.6 % Mean Corpuscular Volume 92.5 FL 91.9 FL Mean Corpuscular Hemoglobin 31.6 PG 31.0 PG Mean Corpuscular Hemoglobin Concent 34.2 % 33.7 % Red Cell Distribution Width 14.5 % 14.1 % Platelet Count 303 TH/MM3 353 TH/MM3 Mean Platelet Volume 8.3 FL 7.9 FL Neutrophils (%) (Auto) 84.1 % 88.2 % Lymphocytes (%) (Auto) 6.0 % 3.9 % Monocytes (%) (Auto) 9.3 % 7.8 % Eosinophils (%) (Auto) 0.2 % 0.0 % Basophils (%) (Auto) 0.4 % 0.1 % Neutrophils # (Auto) 6.0 TH/MM3 7.7 TH/MM3 Lymphocytes # (Auto) 0.4 TH/MM3 0.3 TH/MM3 Monocytes # (Auto) 0.7 TH/MM3 0.7 TH/MM3 Eosinophils # (Auto) 0.0 TH/MM3 0.0 TH/MM3 Basophils # (Auto) 0.0 TH/MM3 0.0 TH/MM3 CBC Comment AUTO DIFF DIFF FINAL Differential Comment AUTO DIFF CONFIRMED Platelet Estimate NORMAL Platelet Morphology Comment NORMAL Ovalocytes 1+ Prothrombin Time 9.9 SEC Prothromb Time International Ratio 1.0 RATIO Activated Partial Thromboplast Time 21.0 SEC Blood Urea Nitrogen 28 MG/DL 35 MG/DL Creatinine 1.10 MG/DL 1.41 MG/DL Random Glucose 132 MG/DL 250 MG/DL Total Protein 6.3 GM/DL Albumin 2.2 GM/DL Calcium Level 8.4 MG/DL 8.0 MG/DL Phosphorus Level 2.5 MG/DL Magnesium Level 2.3 MG/DL 2.2 MG/DL Alkaline Phosphatase 75 U/L Aspartate Amino Transf (AST/SGOT) 15 U/L Alanine Aminotransferase (ALT/SGPT) 16 U/L Total Bilirubin 0.3 MG/DL Sodium Level 132 MEQ/L 133 MEQ/L Potassium Level 5.0 MEQ/L 4.4 MEQ/L Chloride Level 97 MEQ/L 95 MEQ/L Carbon Dioxide Level 28.3 MEQ/L 30.0 MEQ/L Anion Gap 7 MEQ/L 8 MEQ/L Estimat Glomerular Filtration Rate 47 ML/MIN 35 ML/MIN Total Creatine Kinase 41 U/L Troponin I LESS THAN 0.02 NG/ML Lipase 231 U/L Lactic Acid Level 0.8 mmol/L Urine Color YELLOW Urine Turbidity CLEAR Urine pH 7.0 Urine Specific [place] 1.009 Urine Protein TRACE mg/dL Urine Glucose (UA) NEG mg/dL Urine Ketones NEG mg/dL Urine Occult Blood NEG Urine Nitrite NEG Urine Bilirubin NEG Urine Urobilinogen LESS THAN 2.0 MG/DL Urine Leukocyte Esterase TRACE Urine RBC LESS THAN 1 /hpf Urine WBC 2 /hpf Urine Squamous Epithelial Cells 2 /hpf Microscopic Urinalysis Comment CATH-CULT NOT IND Imaging Last Impressions Chest X-Ray 08/23/17 0907 Signed Impressions: Service Date/Time: Wednesday, August 23, 2017 09:18 - CONCLUSION: 1. Cardiomegaly with basilar airspace disease. Differential diagnosis includes infection/aspiration and possibly mild edema. Rikki Hardin MD Chest CT 08/23/17 0000 Signed Impressions: Service Date/Time: Wednesday, August 23, 2017 11:00 - CONCLUSION: 1. Moderate pleural effusions with dependent consolidation and atelectasis in both lungs. More extensive airspace disease the right lung base extending into the right middle lobe most characteristic of pneumonia or aspiration. 2. Cardiomegaly with mild coronary calcifications. 3. Advanced arthropathy of the shoulders with chronic remodeling of the glenoid. Rikki Hardin MD Objective Remarks GENERAL: This is a well-nourished, well-developed patient, in no apparent distress. HEENT: Atraumatic. Normocephalic. No temporal or scalp tenderness. No scleral icterus. Airway patent. NECK: Trachea midline, supple, nontender. CARDIO: Irregular RESP: scattered wheezing through out ABD: +BS, soft, non-tender, nondistended. EXT: 2+ Bilateral LE pitting edema. NEURO: Awake and alert. Motor and sensory grossly within normal limits. Normal speech. A/P Problem List: (1) Systolic CHF, acute on chronic ICD Codes: I50.23 - Acute on chronic systolic (congestive) heart failure Status: Acute Plan: Acute systolic CHF, volume overload Hypoxia Pleural effusions Hx of RLL pneumonia - Pt is an 87 y/o female with HTN, hyperlipidemia, diabetes, CKD, stage 3, and memory loss who was brought to the ER at [facility] on [place]23[place] from a local rehab facility for increased O2 requirements. - Pt was previously hospitalized from 07/23/17 to 08/01/17 for RLL pneumonia. During that admission she required BiPAP for hypoxia and was treated with Solu-Medrol, Abx and Duoebs. She was treated with Zosyn and Zyvox during that admission and discharged on a Prednisone taper. Pt was also treated with IV Lasix and Aldactone as well. She improved clinically and was discharged to SNF. - She was brought back to the ED today with increased O2 demand. She has reportedly been coughing and had increased congestion worsening for the past week or so. She has been placed back on supplemental O2 for the last 2 days and her O2 requirements have reportedly been increasing. - Pt was given a dose of Vancomycin and Zosyn in the ED - Labs show normal white blood cell count but a significant shift towards neutrophils. - She was given DuoNeb treatment in the ED - CXR (08/23) -->Cardiomegaly with basilar airspace disease. - Noncontrasted CT Thorax (08/23) --> Moderate pleural effusions with dependent consolidation and atelectasis in both lungs, more extensive airspace disease the right lung base extending into the right middle lobe most characteristic of pneumonia or aspiration, cardiomegaly with mild coronary calcifications, and advanced arthropathy of the shoulders with chronic remodeling of the glenoid. - Pt was given a dose of IV Lasix given at admission - ST evaluation reported no S/S of aspiration with thin liquids and was recommended pureed diet. - Pt is requiring 4L NC - 2D echo (07/24/17) --> EF 30-35%. Decrease left ventricular systolic function. Moderate MR. PAP 26.2 mmHg - Pt is not on any diuretics as an outpt - We will given another one time dose of IV Lasix (08/23) evening - (08/24) labs reviewed BUN 35, creatinine 1.41, GFR 35 - Repeat CXR this AM reveals: Stable mild infiltrate in the right lung base - Lasix 40 mg IV BID with potassium - recheck BMP in AM - Speech therapy recommending pureed food with nectar thickened liquids - Daily weight and I&Os - DVT prophylaxis with SCDs COPD exacerbation - patient is a former smoker with scattered wheezing - start solu medrol 60 mg IV Q12H - CXR in AM A. fib RVR - In the ED pt was tachycardic and tachypneic in atrial fibrillation RVR with highest rates in the 130s - She was given a dose of Cardizem IV with improvement in the HR. - Cont. Cardizem 180mg po BID - Hold Eliquis, this was reportedly stopped at the rehab due to decrease in her H/H. May need to consider restarting as Hgb at admission is 10.5 and is fairly stable compared to labs during previous admission - Hgb 10.5 -> 9/6 (08/24) recheck in AM - Telemetry HTN (hypertension) - Continued and Atenolol 50mg po daily and Cardizem - Decreased hydralazine to 25 mg Q8H with parameters and stop Lisinopril to try to avoid hypotension during diuresis - Monitor BP Tremor - Home medications continued Dementia - Continue Donepezil 5 mg p.o. daily CKD, stage 3 - Labs at admission are stable - Monitor (2) Hypoxia ICD Codes: R09.02 - Hypoxemia Status: Acute (3) Right lower lobe pneumonia ICD Codes: J18.1 - Lobar pneumonia, unspecified organism Status: Chronic (4) Dementia ICD Codes: F03.90 - Unspecified dementia without behavioral disturbance Status: Chronic (5) Atrial fibrillation with RVR ICD Codes: I48.91 - Unspecified atrial fibrillation Status: Acute (6) HTN (hypertension) ICD Codes: I10 - Essential (primary) hypertension Status: Chronic (7) Tremor ICD Codes: R25.1 - Tremor Status: Chronic (8) Diabetes mellitus ICD Codes: E11.9 - Type 2 diabetes mellitus without complications Status: Chronic Assessment and Plan Patient examined. Assessment and plan formulated with Dennise Carlos PA-C. I agree with the above. Dennise Carlos Aug 24, 2017 18:11 Charles Herman DO Aug 27, 2017 11:51
[2017-08-24] MEDS: DONEPEZIL HCL 5 MG TAB PO SCH (21:52)
[2017-08-24] MEDS: MELATONIN 5 MG TAB PO PRN (21:53)
[2017-08-24] MEDS: methylPREDNISolone SOD SUCC 125 MG/2 ML VIAL IV PUSH SCH (21:53)
[2017-08-25] VITALS (7 sets, daily range): BP systolic 137–160; BP diastolic 67–97; PULSE 89–123; RESP 19–20; TEMP 96.7–98.2; O2SAT 92–95
[2017-08-25] MEDS ORDERED: RESP: ALBUTEROL 2.5 MG/IPRATROPIUM 0.5 MG NEB (SCH) NEB (03:15)
[2017-08-25] MEDS: hydrALAZINE HCL 50 MG TAB PO SCH ×3 (05:47→21:18)
[2017-08-25 08:35] LABS: HEMATOCRIT 29.1 % (35.0-46.0); HEMOGLOBIN 9.7 GM/DL (11.6-15.3); MEAN CORPUSCULAR HEMOGLOBIN 30.8 PG (27.0-34.0); MEAN CORPUSCULAR HGB CONC 33.5 % (32.0-36.0); MEAN PLATELET VOLUME 8.2 FL (7.0-11.0); PLATELET COUNT 386 TH/MM3 (150-450); RED BLOOD COUNT 3.16 MIL/MM3 (4.00-5.30); RED CELL DISTRIBUTION WIDTH 14.4 % (11.6-17.2); WHITE BLOOD COUNT 9.9 TH/MM3 (4.0-11.0)
[2017-08-25 08:54] LABS: BICARBONATE 28.3 MEQ/L (21.0-32.0); CALCIUM 8.2 MG/DL (8.5-10.1); CREATININE 1.19 MG/DL (0.50-1.00); MAGNESIUM 2.1 MG/DL (1.5-2.5)
[2017-08-25 09:34] LABS: BANDS 5 % (0-6); MONOCYTES 1 % (0-8); MYELOCYTES 1 % (0-0); NEUTROPHIL # MANUAL DIFF 9.8 TH/MM3 (1.8-7.7); POLYS (SEG NEUTROPHILS) 92 % (16-70); PROMYELOCYTES 1 % (0-0)
[2017-08-25 09:37] LABS: KERATOCYTES OCC (NORMAL)
[2017-08-25] MEDS: PRAVASTATIN SOD 20 MG TAB PO SCH (10:08)
[2017-08-25] MEDS: PRIMIDONE 50 MG TAB PO SCH ×2 (10:09→21:18)
[2017-08-25] MEDS: DILTIAZEM-CD 180 MG CAP ER PO SCH ×2 (10:10→21:18)
[2017-08-25] MEDS: ATENOLOL 50 MG TAB PO SCH (10:11)
[2017-08-25] MEDS: POTASSIUM CHLORIDE 20 MEQ CONTROLLED RELEASE TAB PO SCH (10:12)
[2017-08-25] MEDS: PANTOPRAZOLE SOD 20 MG DELAYED RELEASE TAB PO SCH (10:12)
[2017-08-25] MEDS: FUROSEMIDE 40 MG/4 ML VIAL IV PUSH SCH ×2 (10:13→17:28)
[2017-08-25] MEDS: PARoxetine HCL 20 MG TAB PO SCH (10:13)
[2017-08-25] MEDS: SODIUM CHLORIDE 0.9% FLUSH 10 ML FLUSH IV FLUSH SCH ×2 (10:14→21:17)
[2017-08-25] MEDS: methylPREDNISolone SOD SUCC 125 MG/2 ML VIAL IV PUSH SCH ×2 (10:14→21:18)
--- NOTE | 2017-08-25 10:27 | HHI.PR ---
Subjective Remarks Patient was able to sleep better last night reports breathing is a little better Objective Vitals Vital Signs Date Time Temp Pulse Resp B/P (MAP) Pulse Ox O2 Delivery O2 Flow Rate FiO2 08/25/17 08:00 96.7 112 20 160/97 (118) 95 08/24/17 21:18 95 Nasal Cannula 4.00 08/24/17 20:00 Nasal Cannula 4.00 08/24/17 20:00 97.8 98 20 151/65 (93) 96 08/24/17 16:00 97.5 88 20 149/84 (105) 95 08/24/17 14:00 Nasal Cannula 4.00 08/24/17 12:00 97.5 95 20 135/69 (91) 95 08/24/17 12:00 92 08/24/17 11:08 97 Result Diagram: 08/25/17 0615 08/25/17 0615 Other Results Laboratory Tests Test 08/23/17 09:15 08/23/17 09:20 08/23/17 13:00 08/24/17 09:40 White Blood Count 7.2 TH/MM3 8.7 TH/MM3 Red Blood Count 3.34 MIL/MM3 3.11 MIL/MM3 Hemoglobin 10.5 GM/DL 9.6 GM/DL Hematocrit 30.9 % 28.6 % Mean Corpuscular Volume 92.5 FL 91.9 FL Mean Corpuscular Hemoglobin 31.6 PG 31.0 PG Mean Corpuscular Hemoglobin Concent 34.2 % 33.7 % Red Cell Distribution Width 14.5 % 14.1 % Platelet Count 303 TH/MM3 353 TH/MM3 Mean Platelet Volume 8.3 FL 7.9 FL Neutrophils (%) (Auto) 84.1 % 88.2 % Lymphocytes (%) (Auto) 6.0 % 3.9 % Monocytes (%) (Auto) 9.3 % 7.8 % Eosinophils (%) (Auto) 0.2 % 0.0 % Basophils (%) (Auto) 0.4 % 0.1 % Neutrophils # (Auto) 6.0 TH/MM3 7.7 TH/MM3 Lymphocytes # (Auto) 0.4 TH/MM3 0.3 TH/MM3 Monocytes # (Auto) 0.7 TH/MM3 0.7 TH/MM3 Eosinophils # (Auto) 0.0 TH/MM3 0.0 TH/MM3 Basophils # (Auto) 0.0 TH/MM3 0.0 TH/MM3 CBC Comment AUTO DIFF DIFF FINAL Differential Comment AUTO DIFF CONFIRMED Platelet Estimate NORMAL Platelet Morphology Comment NORMAL Ovalocytes 1+ Prothrombin Time 9.9 SEC Prothromb Time International Ratio 1.0 RATIO Activated Partial Thromboplast Time 21.0 SEC Blood Urea Nitrogen 28 MG/DL 35 MG/DL Creatinine 1.10 MG/DL 1.41 MG/DL Random Glucose 132 MG/DL 250 MG/DL Total Protein 6.3 GM/DL Albumin 2.2 GM/DL Calcium Level 8.4 MG/DL 8.0 MG/DL Phosphorus Level 2.5 MG/DL Magnesium Level 2.3 MG/DL 2.2 MG/DL Alkaline Phosphatase 75 U/L Aspartate Amino Transf (AST/SGOT) 15 U/L Alanine Aminotransferase (ALT/SGPT) 16 U/L Total Bilirubin 0.3 MG/DL Sodium Level 132 MEQ/L 133 MEQ/L Potassium Level 5.0 MEQ/L 4.4 MEQ/L Chloride Level 97 MEQ/L 95 MEQ/L Carbon Dioxide Level 28.3 MEQ/L 30.0 MEQ/L Anion Gap 7 MEQ/L 8 MEQ/L Estimat Glomerular Filtration Rate 47 ML/MIN 35 ML/MIN Total Creatine Kinase 41 U/L Troponin I LESS THAN 0.02 NG/ML Lipase 231 U/L Lactic Acid Level 0.8 mmol/L Urine Color YELLOW Urine Turbidity CLEAR Urine pH 7.0 Urine Specific [place] 1.009 Urine Protein TRACE mg/dL Urine Glucose (UA) NEG mg/dL Urine Ketones NEG mg/dL Urine Occult Blood NEG Urine Nitrite NEG Urine Bilirubin NEG Urine Urobilinogen LESS THAN 2.0 MG/DL Urine Leukocyte Esterase TRACE Urine RBC LESS THAN 1 /hpf Urine WBC 2 /hpf Urine Squamous Epithelial Cells 2 /hpf Microscopic Urinalysis Comment CATH-CULT NOT IND Test 08/25/17 06:15 White Blood Count 9.9 TH/MM3 Red Blood Count 3.16 MIL/MM3 Hemoglobin 9.7 GM/DL Hematocrit 29.1 % Mean Corpuscular Volume 92.0 FL Mean Corpuscular Hemoglobin 30.8 PG Mean Corpuscular Hemoglobin Concent 33.5 % Red Cell Distribution Width 14.4 % Platelet Count 386 TH/MM3 Mean Platelet Volume 8.2 FL CBC Comment AUTO DIFF Differential Total Cells Counted 100 Neutrophils % (Manual) 92 % Band Neutrophils % 5 % Monocytes % 1 % Neutrophils # (Manual) 9.8 TH/MM3 Myelocytes 1 % Promyelocytes 1 % Differential Comment FINAL DIFF MANUAL Platelet Estimate NORMAL Platelet Morphology Comment NORMAL Keratocytes OCC Blood Urea Nitrogen 32 MG/DL Creatinine 1.19 MG/DL Random Glucose 243 MG/DL Calcium Level 8.2 MG/DL Magnesium Level 2.1 MG/DL Sodium Level 132 MEQ/L Potassium Level 4.7 MEQ/L Chloride Level 94 MEQ/L Carbon Dioxide Level 28.3 MEQ/L Anion Gap 10 MEQ/L Estimat Glomerular Filtration Rate 43 ML/MIN Imaging Last Impressions Chest X-Ray 08/23/17 0907 Signed Impressions: Service Date/Time: Wednesday, August 23, 2017 09:18 - CONCLUSION: 1. Cardiomegaly with basilar airspace disease. Differential diagnosis includes infection/aspiration and possibly mild edema. Rikki Hardin MD Chest CT 08/23/17 0000 Signed Impressions: Service Date/Time: Wednesday, August 23, 2017 11:00 - CONCLUSION: 1. Moderate pleural effusions with dependent consolidation and atelectasis in both lungs. More extensive airspace disease the right lung base extending into the right middle lobe most characteristic of pneumonia or aspiration. 2. Cardiomegaly with mild coronary calcifications. 3. Advanced arthropathy of the shoulders with chronic remodeling of the glenoid. Rikki Hardin MD Objective Remarks GENERAL: This is a well-nourished, well-developed patient, in no apparent distress. HEENT: Atraumatic. Normocephalic. No temporal or scalp tenderness. No scleral icterus. Airway patent. NECK: Trachea midline, supple, nontender. CARDIO: Irregular RESP: crackles in the bilateral bases ABD: +BS, soft, non-tender, nondistended. EXT: 1+ Bilateral LE pitting edema. NEURO: Awake and alert. Motor and sensory grossly within normal limits. Normal speech. A/P Problem List: (1) Systolic CHF, acute on chronic ICD Codes: I50.23 - Acute on chronic systolic (congestive) heart failure Status: Acute Plan: Acute systolic CHF, volume overload Hypoxia Pleural effusions Hx of RLL pneumonia - Pt is an 87 y/o female with HTN, hyperlipidemia, diabetes, CKD, stage 3, and memory loss who was brought to the ER at [facility] [place] on 08/23/17 from a local rehab facility for increased O2 requirements. - Pt was previously hospitalized from 07/23/17 to 08/01/17 for RLL pneumonia. During that admission she required BiPAP for hypoxia and was treated with Solu-Medrol, Abx and Duoebs. She was treated with Zosyn and Zyvox during that admission and discharged on a Prednisone taper. Pt was also treated with IV Lasix and Aldactone as well. She improved clinically and was discharged to SNF. - She was brought back to the ED today with increased O2 demand. She has reportedly been coughing and had increased congestion worsening for the past week or so. She has been placed back on supplemental O2 for the last 2 days and her O2 requirements have reportedly been increasing. - Pt was given a dose of Vancomycin and Zosyn in the ED - Labs show normal white blood cell count but a significant shift towards neutrophils. - She was given DuoNeb treatment in the ED - CXR (08/23) -->Cardiomegaly with basilar airspace disease. - Noncontrasted CT Thorax (08/23) --> Moderate pleural effusions with dependent consolidation and atelectasis in both lungs, more extensive airspace disease the right lung base extending into the right middle lobe most characteristic of pneumonia or aspiration, cardiomegaly with mild coronary calcifications, and advanced arthropathy of the shoulders with chronic remodeling of the glenoid. - Pt was given a dose of IV Lasix given at admission - ST evaluation reported no S/S of aspiration with thin liquids and was recommended pureed diet. - Pt is requiring 4L NC - 2D echo (07/24/17) --> EF 30-35%. Decrease left ventricular systolic function. Moderate MR. PAP 26.2 mmHg - Pt is not on any diuretics as an outpt - given another one time dose of IV Lasix (08/23) evening - (08/24) labs reviewed BUN 35, creatinine 1.41, GFR 35 -> (08/25) BUN 32, creatinine 1.19, GFR 43 - Repeat CXR (08/24) reveals: Stable mild infiltrate in the right lung base - () started Lasix 40 mg IV BID with potassium - recheck BMP in AM - Speech therapy recommending pureed food with nectar thickened liquids - Daily weight and I&Os - DVT prophylaxis with SCDs COPD exacerbation - patient is a former smoker with scattered wheezing - start solu medrol 60 mg IV Q12H - CXR (08/25) Stable focal infiltrate in the right lower lung. There is some focal consolidation in the left lung base as well. Otherwise, no significant changes compared to the prior study. - add acapella Steroid induced hyperglycemia - blood sugar noted to be elevated on BMP, likely steroid induces - will start accu checks ACHS low dose SSI coverage - Ha1c A. fib RVR - In the ED pt was tachycardic and tachypneic in atrial fibrillation RVR with highest rates in the 130s - She was given a dose of Cardizem IV with improvement in the HR. - Cont. Cardizem 180mg po BID - Hold Eliquis, this was reportedly stopped at the rehab due to decrease in her H/H. May need to consider restarting as Hgb at admission is 10.5 and is fairly stable compared to labs during previous admission - Hgb 10.5 -> 9.6 (08/24) -> 9.7 (08/25) - Telemetry HTN (hypertension) - Continued and Atenolol 50mg po daily and Cardizem - Decreased hydralazine to 25 mg Q8H with parameters and stop Lisinopril to try to avoid hypotension during diuresis - Monitor BP Tremor - Home medications continued Dementia - Continue Donepezil 5 mg p.o. daily CKD, stage 3 - Labs at admission are stable - Monitor (2) Hypoxia ICD Codes: R09.02 - Hypoxemia Status: Acute (3) Right lower lobe pneumonia ICD Codes: J18.1 - Lobar pneumonia, unspecified organism Status: Chronic (4) Dementia ICD Codes: F03.90 - Unspecified dementia without behavioral disturbance Status: Chronic (5) Atrial fibrillation with RVR ICD Codes: I48.91 - Unspecified atrial fibrillation Status: Acute (6) HTN (hypertension) ICD Codes: I10 - Essential (primary) hypertension Status: Chronic (7) Tremor ICD Codes: R25.1 - Tremor Status: Chronic (8) Diabetes mellitus ICD Codes: E11.9 - Type 2 diabetes mellitus without complications Status: Chronic Assessment and Plan Patient examined. Assessment and plan formulated with Dennise Carlos PA-C. I agree with the above. Dennise Carlos Aug 25, 2017 10:27 Charles Herman 31, 2018 11:51
[2017-08-25] MEDS ORDERED: DEXTROSE 50% IN WATER 50 ML VIAL(D50) IV PUSH PRN (10:30)
[2017-08-25] MEDS ORDERED: GLUCAGON 1 MG/ML VIAL OTHER PRN (10:30)
--- NOTE | 2017-08-25 11:11 | RADRPT ---
EXAM DATE/TIME: 08/25/2017 09:26 [place] COMPARISON: CHEST PA & LAT, August 24, 2017, 8:46. INDICATIONS : Congestive heart failure. MEDICAL HISTORY : Hypertension. Diabetes mellitus type II. SURGICAL HISTORY : None. ENCOUNTER: Subsequent ACUITY: 3 days PAIN SCORE: 0/10 LOCATION: chest FINDINGS: Stable focal infiltrate in the right lung base. There also appears to be some focal consolidation in the left lung base as well. The rest of the lung hernandez remain clear and well-aerated. The heart size is stable. No significant changes compared to the prior study. The bony structures are stable. CONCLUSION: Stable focal infiltrate in the right lower lung. There is some focal consolidation in the left lung b ase as well. Otherwise, no significant changes compared to the prior study. Ramesh Finnegan MD on August 25, 2017 at 11:07 Board Certified Radiologist. This report was verified electronically.
[2017-08-25] MEDS ORDERED: RESP: ALBUTEROL 2.5 MG/IPRATROPIUM 0.5 MG NEB (PRN) NEB (12:00)
[2017-08-25] MEDS: INSULIN ASPART SUPPLEMENTAL SCALE SQ SCH ×3 (13:15→21:18)
[2017-08-25] MEDS: RESP: ALBUTEROL 2.5 MG/IPRATROPIUM 0.5 MG NEB (SCH) NEB ×2 (15:23→20:09)
[2017-08-25] MEDS: DONEPEZIL HCL 5 MG TAB PO SCH (21:18)
[2017-08-25] MEDS: MELATONIN 5 MG TAB PO PRN (21:18)
[2017-08-26] VITALS (10 sets, daily range): BP systolic 100–167; BP diastolic 54–95; PULSE 83–135; RESP 18–22; TEMP 96.1–97.8; O2SAT 90–99
[2017-08-26] MEDS: hydrALAZINE HCL 50 MG TAB PO SCH ×3 (05:25→21:49)
[2017-08-26] MEDS: RESP: ALBUTEROL 2.5 MG/IPRATROPIUM 0.5 MG NEB (SCH) NEB ×3 (07:44→19:36)
[2017-08-26] MEDS: PRIMIDONE 50 MG TAB PO SCH ×2 (09:00→20:41)
[2017-08-26] MEDS: INSULIN ASPART SUPPLEMENTAL SCALE SQ SCH ×4 (09:04→20:54)
[2017-08-26] MEDS: PANTOPRAZOLE SOD 20 MG DELAYED RELEASE TAB PO SCH (09:05)
[2017-08-26] MEDS: SODIUM CHLORIDE 0.9% FLUSH 10 ML FLUSH IV FLUSH SCH ×2 (09:05→20:41)
[2017-08-26] MEDS: DILTIAZEM-CD 180 MG CAP ER PO SCH ×2 (09:05→20:40)
[2017-08-26] MEDS: methylPREDNISolone SOD SUCC 125 MG/2 ML VIAL IV PUSH SCH (09:05)
[2017-08-26] MEDS: PRAVASTATIN SOD 20 MG TAB PO SCH (09:05)
[2017-08-26] MEDS: FUROSEMIDE 40 MG/4 ML VIAL IV PUSH SCH ×2 (09:05→17:13)
[2017-08-26] MEDS: ATENOLOL 50 MG TAB PO SCH (09:05)
[2017-08-26] MEDS: PARoxetine HCL 20 MG TAB PO SCH (09:05)
[2017-08-26] MEDS: POTASSIUM CHLORIDE 20 MEQ CONTROLLED RELEASE TAB PO SCH (09:06)
[2017-08-26 16:26] LABS: HEMOGLOBIN A1C 7.7 % (4.3-6.0)
[2017-08-26] MEDS ORDERED: INSULIN ASPART 1,000 UNITS/10 ML VIAL SQ ONE (18:00)
--- NOTE | 2017-08-26 18:54 | HHI.PR ---
Subjective Remarks No new complaints reports breathing is better cough better Objective Vitals Vital Signs Date Time Temp Pulse Resp B/P (MAP) Pulse Ox O2 Delivery O2 Flow Rate FiO2 08/26/17 17:39 18 08/26/17 16:00 97.1 126 20 122/87 (99) 94 08/26/17 12:00 97.6 135 19 136/70 (92) 92 08/26/17 08:00 Nasal Cannula 3.00 08/26/17 08:00 97.8 101 18 135/95 (108) 92 08/26/17 07:50 90 Nasal Cannula 3.00 08/26/17 05:17 149/77 (101) 08/26/17 00:01 96.1 100 20 167/82 (110) 92 08/25/17 20:09 92 Nasal Cannula 3.00 08/25/17 20:00 94 08/25/17 20:00 Nasal Cannula 3.00 08/25/17 20:00 98.0 114 20 137/67 (90) 95 08/26/17 08/26/17 08/27/17 15:00 23:00 07:00 Intake Total 960 ml Balance 960 ml Intake Oral 960 ml # Voids 3 Result Diagram: 08/25/17 0615 08/25/17 0615 Other Results Laboratory Tests Test 08/24/17 09:40 08/25/17 06:15 08/26/17 12:02 White Blood Count 8.7 TH/MM3 9.9 TH/MM3 Red Blood Count 3.11 MIL/MM3 3.16 MIL/MM3 Hemoglobin 9.6 GM/DL 9.7 GM/DL Hematocrit 28.6 % 29.1 % Mean Corpuscular Volume 91.9 FL 92.0 FL Mean Corpuscular Hemoglobin 31.0 PG 30.8 PG Mean Corpuscular Hemoglobin Concent 33.7 % 33.5 % Red Cell Distribution Width 14.1 % 14.4 % Platelet Count 353 TH/MM3 386 TH/MM3 Mean Platelet Volume 7.9 FL 8.2 FL Neutrophils (%) (Auto) 88.2 % Lymphocytes (%) (Auto) 3.9 % Monocytes (%) (Auto) 7.8 % Eosinophils (%) (Auto) 0.0 % Basophils (%) (Auto) 0.1 % Neutrophils # (Auto) 7.7 TH/MM3 Lymphocytes # (Auto) 0.3 TH/MM3 Monocytes # (Auto) 0.7 TH/MM3 Eosinophils # (Auto) 0.0 TH/MM3 Basophils # (Auto) 0.0 TH/MM3 CBC Comment DIFF FINAL AUTO DIFF Differential Comment FINAL DIFF MANUAL Blood Urea Nitrogen 35 MG/DL 32 MG/DL Creatinine 1.41 MG/DL 1.19 MG/DL Random Glucose 250 MG/DL 243 MG/DL Calcium Level 8.0 MG/DL 8.2 MG/DL Magnesium Level 2.2 MG/DL 2.1 MG/DL Sodium Level 133 MEQ/L 132 MEQ/L Potassium Level 4.4 MEQ/L 4.7 MEQ/L Chloride Level 95 MEQ/L 94 MEQ/L Carbon Dioxide Level 30.0 MEQ/L 28.3 MEQ/L Anion Gap 8 MEQ/L 10 MEQ/L Estimat Glomerular Filtration Rate 35 ML/MIN 43 ML/MIN Differential Total Cells Counted 100 Neutrophils % (Manual) 92 % Band Neutrophils % 5 % Monocytes % 1 % Neutrophils # (Manual) 9.8 TH/MM3 Myelocytes 1 % Promyelocytes 1 % Platelet Estimate NORMAL Platelet Morphology Comment NORMAL Keratocytes OCC Imaging Last Impressions Chest X-Ray 08/23/17 0907 Signed Impressions: Service Date/Time: Wednesday, August 23, 2017 09:18 - CONCLUSION: 1. Cardiomegaly with basilar airspace disease. Differential diagnosis includes infection/aspiration and possibly mild edema. Rikki Hardin MD Chest CT 08/23/17 0000 Signed Impressions: Service Date/Time: Wednesday, August 23, 2017 11:00 - CONCLUSION: 1. Moderate pleural effusions with dependent consolidation and atelectasis in both lungs. More extensive airspace disease the right lung base extending into the right middle lobe most characteristic of pneumonia or aspiration. 2. Cardiomegaly with mild coronary calcifications. 3. Advanced arthropathy of the shoulders with chronic remodeling of the glenoid. Rikki Hardin MD Objective Remarks GENERAL: This is a well-nourished, well-developed patient, in no apparent distress. HEENT: Atraumatic. Normocephalic. No temporal or scalp tenderness. No scleral icterus. Airway patent. NECK: Trachea midline, supple, nontender. CARDIO: Irregularly irregular and tachycardic RESP: clear ABD: +BS, soft, non-tender, nondistended. EXT: trace Bilateral LE pitting edema. NEURO: Awake and alert. Motor and sensory grossly within normal limits. Normal speech. A/P Problem List: (1) Systolic CHF, acute on chronic ICD Codes: I50.23 - Acute on chronic systolic (congestive) heart failure Status: Acute Plan: Acute systolic CHF, volume overload Hypoxia Pleural effusions Hx of RLL pneumonia - Pt is an 87 y/o female with HTN, hyperlipidemia, diabetes, CKD, stage 3, and memory loss who was brought to the ER at [facility] [place] on 08/23/17 from a local rehab facility for increased O2 requirements. - Pt was previously hospitalized from 07/23/17 to 08/01/17 for RLL pneumonia. During that admission she required BiPAP for hypoxia and was treated with Solu-Medrol, Abx and Duoebs. She was treated with Zosyn and Zyvox during that admission and discharged on a Prednisone taper. Pt was also treated with IV Lasix and Aldactone as well. She improved clinically and was discharged to SNF. - She was brought back to the ED today with increased O2 demand. She has reportedly been coughing and had increased congestion worsening for the past week or so. She has been placed back on supplemental O2 for the last 2 days and her O2 requirements have reportedly been increasing. - Pt was given a dose of Vancomycin and Zosyn in the ED - Labs show normal white blood cell count but a significant shift towards neutrophils. - She was given DuoNeb treatment in the ED - CXR (08/23) -->Cardiomegaly with basilar airspace disease. - Noncontrasted CT Thorax (08/23) --> Moderate pleural effusions with dependent consolidation and atelectasis in both lungs, more extensive airspace disease the right lung base extending into the right middle lobe most characteristic of pneumonia or aspiration, cardiomegaly with mild coronary calcifications, and advanced arthropathy of the shoulders with chronic remodeling of the glenoid. - Pt was given a dose of IV Lasix given at admission - ST evaluation reported no S/S of aspiration with thin liquids and was recommended pureed diet. - Pt is requiring 4L NC - 2D echo (07/24/17) --> EF 30-35%. Decrease left ventricular systolic function. Moderate MR. PAP 26.2 mmHg - Pt is not on any diuretics as an outpt - given another one time dose of IV Lasix (08/23) evening - (08/24) labs reviewed BUN 35, creatinine 1.41, GFR 35 -> (08/25) BUN 32, creatinine 1.19, GFR 43 - Repeat CXR (08/24) reveals: Stable mild infiltrate in the right lung base - () started Lasix 40 mg IV BID with potassium -> (08/26) change to Lasix 40 mg PO daily - recheck BMP in AM - Speech therapy recommending pureed food with nectar thickened liquids - Daily weight and I&Os - DVT prophylaxis with SCDs COPD exacerbation - patient is a former smoker with scattered wheezing - start solu medrol 60 mg IV Q12H - CXR (08/25) Stable focal infiltrate in the right lower lung. There is some focal consolidation in the left lung base as well. Otherwise, no significant changes compared to the prior study. - add acapella Steroid induced hyperglycemia - blood sugar noted to be elevated on BMP, likely steroid induces - will start accu checks ACHS low dose SSI coverage - Ha1c pending - lungs improving - DC Solu-medrol, start prednisone 30 mg PO BID 08/27 - continue to monitor blood sugar with decreased steroids, also continue SSI A. fib RVR- 08/26 now with RVR - In the ED pt was tachycardic and tachypneic in atrial fibrillation RVR with highest rates in the 130s - Cont. Cardizem 180mg po BID, increase atenolol to 50 mg PO BID. - dose of atenolol 50 mg PO now, decrease lasix to 40 mg PO once a day - Hold Radha, this was reportedly stopped at the rehab due to decrease in her H/H. May need to consider restarting as Hgb at admission is 10.5 and is fairly stable compared to labs during previous admission - Hgb 10.5 -> 9.6 (08/24) -> 9.7 (08/25) - Telemetry HTN (hypertension) - Continued and Atenolol and Cardizem - Decreased hydralazine to 25 mg Q8H with parameters and stop Lisinopril to try to avoid hypotension during diuresis - Monitor BP Tremor - Home medications continued Dementia - Continue Donepezil 5 mg p.o. daily CKD, stage 3 - Labs at admission are stable - Monitor (2) Hypoxia ICD Codes: R09.02 - Hypoxemia Status: Acute (3) Right lower lobe pneumonia ICD Codes: J18.1 - Lobar pneumonia, unspecified organism Status: Chronic (4) Dementia ICD Codes: F03.90 - Unspecified dementia without behavioral disturbance Status: Chronic (5) Atrial fibrillation with RVR ICD Codes: I48.91 - Unspecified atrial fibrillation Status: Acute (6) HTN (hypertension) ICD Codes: I10 - Essential (primary) hypertension Status: Chronic (7) Tremor ICD Codes: R25.1 - Tremor Status: Chronic (8) Diabetes mellitus ICD Codes: E11.9 - Type 2 diabetes mellitus without complications Status: Chronic Assessment and Plan Patient examined. Assessment and plan formulated with Dennise Carlos PA-C. I agree with the above. Dennise Carlos Aug 26, 2017 18:54 Charles Herman DO Aug 27, 2017 11:52
[2017-08-26] MEDS ORDERED: ATENOLOL 50 MG TAB PO ONE (19:00)
[2017-08-26] MEDS: DONEPEZIL HCL 5 MG TAB PO SCH (20:40)
[2017-08-26] MEDS: predniSONE 10 MG TAB PO SCH (20:41)
[2017-08-26] MEDS: MELATONIN 5 MG TAB PO PRN (20:54)
[2017-08-27] VITALS (7 sets, daily range): BP systolic 104–144; BP diastolic 58–86; PULSE 71–114; RESP 18–22; TEMP 96.5–97.7; O2SAT 93–98
[2017-08-27] MEDS: hydrALAZINE HCL 50 MG TAB PO SCH ×3 (05:42→22:00)
[2017-08-27] MEDS: RESP: ALBUTEROL 2.5 MG/IPRATROPIUM 0.5 MG NEB (SCH) NEB ×3 (08:03→19:22)
[2017-08-27] MEDS: PRAVASTATIN SOD 20 MG TAB PO SCH (09:22)
[2017-08-27] MEDS: PARoxetine HCL 20 MG TAB PO SCH (09:22)
[2017-08-27] MEDS: PRIMIDONE 50 MG TAB PO SCH ×2 (09:22→22:51)
[2017-08-27] MEDS: ATENOLOL 50 MG TAB PO SCH ×2 (09:22→22:51)
[2017-08-27] MEDS: predniSONE 10 MG TAB PO SCH ×2 (09:22→22:50)
[2017-08-27] MEDS: PANTOPRAZOLE SOD 20 MG DELAYED RELEASE TAB PO SCH (09:22)
[2017-08-27] MEDS: FUROSEMIDE 40 MG TAB PO SCH (09:22)
[2017-08-27] MEDS: DILTIAZEM-CD 180 MG CAP ER PO SCH ×2 (09:23→22:53)
[2017-08-27] MEDS: SODIUM CHLORIDE 0.9% FLUSH 10 ML FLUSH IV FLUSH SCH ×2 (09:23→23:13)
[2017-08-27] MEDS: INSULIN ASPART SUPPLEMENTAL SCALE SQ SCH ×4 (09:23→22:48)
[2017-08-27] MEDS: POTASSIUM CHLORIDE 20 MEQ CONTROLLED RELEASE TAB PO SCH (09:23)
[2017-08-27 10:54] LABS: BICARBONATE 28.8 MEQ/L (21.0-32.0); CALCIUM 7.8 MG/DL (8.5-10.1); CREATININE 1.93 MG/DL (0.50-1.00)
--- NOTE | 2017-08-27 11:19 | HHI.PR ---
Subjective Remarks Patient reports feeling, "about the same." slept well last night continues to have cough unable to produce phlegm Objective Vitals Vital Signs Date Time Temp Pulse Resp B/P (MAP) Pulse Ox O2 Delivery O2 Flow Rate FiO2 08/27/17 08:09 93 Nasal Cannula 3.00 08/27/17 08:00 96.5 114 20 144/86 (105) 94 08/27/17 08:00 Nasal Cannula 3.00 08/27/17 08:00 85 08/27/17 05:43 119/80 (93) 08/27/17 03:39 96.6 85 18 130/69 (89) 94 08/26/17 23:06 96.1 83 20 116/54 (74) 99 08/26/17 21:49 100/55 (70) 08/26/17 19:50 105 22 106/61 (76) 99 08/26/17 19:50 99 Nasal Cannula 3.00 08/26/17 19:40 98 Nasal Cannula 3.00 08/26/17 17:39 18 08/26/17 16:00 97.1 126 20 122/87 (99) 94 08/26/17 12:00 97.6 135 19 136/70 (92) 92 Result Diagram: 08/25/17 0615 08/27/17 1026 Other Results Laboratory Tests Test 08/25/17 06:15 08/26/17 12:02 08/27/17 10:26 White Blood Count 9.9 TH/MM3 Red Blood Count 3.16 MIL/MM3 Hemoglobin 9.7 GM/DL Hematocrit 29.1 % Mean Corpuscular Volume 92.0 FL Mean Corpuscular Hemoglobin 30.8 PG Mean Corpuscular Hemoglobin Concent 33.5 % Red Cell Distribution Width 14.4 % Platelet Count 386 TH/MM3 Mean Platelet Volume 8.2 FL CBC Comment AUTO DIFF Differential Total Cells Counted 100 Neutrophils % (Manual) 92 % Band Neutrophils % 5 % Monocytes % 1 % Neutrophils # (Manual) 9.8 TH/MM3 Myelocytes 1 % Promyelocytes 1 % Differential Comment FINAL DIFF MANUAL Platelet Estimate NORMAL Platelet Morphology Comment NORMAL Keratocytes OCC Blood Urea Nitrogen 32 MG/DL 49 MG/DL Creatinine 1.19 MG/DL 1.93 MG/DL Random Glucose 243 MG/DL 308 MG/DL Calcium Level 8.2 MG/DL 7.8 MG/DL Magnesium Level 2.1 MG/DL Sodium Level 132 MEQ/L 135 MEQ/L Potassium Level 4.7 MEQ/L 4.3 MEQ/L Chloride Level 94 MEQ/L 94 MEQ/L Carbon Dioxide Level 28.3 MEQ/L 28.8 MEQ/L Anion Gap 10 MEQ/L 12 MEQ/L Estimat Glomerular Filtration Rate 43 ML/MIN 25 ML/MIN Hemoglobin A1c 7.7 % Imaging Last Impressions Chest X-Ray 08/23/17 0907 Signed Impressions: Service Date/Time: Wednesday, August 23, 2017 09:18 - CONCLUSION: 1. Cardiomegaly with basilar airspace disease. Differential diagnosis includes infection/aspiration and possibly mild edema. Rikki Hardin MD Chest CT 08/23/17 0000 Signed Impressions: Service Date/Time: Wednesday, August 23, 2017 11:00 - CONCLUSION: 1. Moderate pleural effusions with dependent consolidation and atelectasis in both lungs. More extensive airspace disease the right lung base extending into the right middle lobe most characteristic of pneumonia or aspiration. 2. Cardiomegaly with mild coronary calcifications. 3. Advanced arthropathy of the shoulders with chronic remodeling of the glenoid. Rikki Hardin MD Objective Remarks GENERAL: This is a well-nourished, well-developed patient, in no apparent distress. HEENT: Atraumatic. Normocephalic. No temporal or scalp tenderness. No scleral icterus. Airway patent. NECK: Trachea midline, supple, nontender. CARDIO: Irregularly irregular and tachycardic RESP: rhonchi which cleared with cough, CTA ABD: +BS, soft, non-tender, nondistended. EXT: no lower extremity edema NEURO: Awake and alert. Motor and sensory grossly within normal limits. Normal speech. Chronic tremor A/P Problem List: (1) Systolic CHF, acute on chronic ICD Codes: I50.23 - Acute on chronic systolic (congestive) heart failure Status: Acute Plan: Acute systolic CHF, volume overload Hypoxia Pleural effusions Hx of RLL pneumonia - Pt is an 87 y/o female with HTN, hyperlipidemia, diabetes, CKD, stage 3, and memory loss who was [place] [facility] [place] a local rehab facility for increased O2 requirements. - Pt was previously hospitalized from 07/23/17 to 08/01/17 for RLL pneumonia. During that admission she required BiPAP for hypoxia and was treated with Solu-Medrol, Abx and Duoebs. She was treated with Zosyn and Zyvox during that admission and discharged on a Prednisone taper. Pt was also treated with IV Lasix and Aldactone as well. She improved clinically and was discharged to SNF. - She was brought back to the ED today with increased O2 demand. She has reportedly been coughing and had increased congestion worsening for the past week or so. She has been placed back on supplemental O2 for the last 2 days and her O2 requirements have reportedly been increasing. - Pt was given a dose of Vancomycin and Zosyn in the ED - Labs show normal white blood cell count but a significant shift towards neutrophils. - She was given DuoNeb treatment in the ED - CXR (08/23) -->Cardiomegaly with basilar airspace disease. - Noncontrasted CT Thorax (08/23) --> Moderate pleural effusions with dependent consolidation and atelectasis in both lungs, more extensive airspace disease the right lung base extending into the right middle lobe most characteristic of pneumonia or aspiration, cardiomegaly with mild coronary calcifications, and advanced arthropathy of the shoulders with chronic remodeling of the glenoid. - Pt was given a dose of IV Lasix given at admission - ST evaluation reported no S/S of aspiration with thin liquids and was recommended pureed diet. - Pt is requiring 4L NC - 2D echo (07/24/17) --> EF 30-35%. Decrease left ventricular systolic function. Moderate MR. PAP 26.2 mmHg - Pt is not on any diuretics as an outpt - given another one time dose of IV Lasix (08/23) evening - (08/24) labs reviewed BUN 35, creatinine 1.41, GFR 35 -> (08/25) BUN 32, creatinine 1.19, GFR 43 -> (08/27) BUN 49, creatinine 1.93, GFR 25 - (08/27) will give NS 50 ml/h for a total of 500ml - Repeat CXR (08/24) reveals: Stable mild infiltrate in the right lung base - (08/24) started Lasix 40 mg IV BID with potassium -> (08/26) change to Lasix 40 mg PO daily - recheck BMP in AM - Speech therapy recommending pureed food with nectar thickened liquids - Daily weight and I&Os - DVT prophylaxis with SCDs COPD exacerbation - patient is a former smoker with scattered wheezing - start solu medrol 60 mg IV Q12H - CXR (08/25) Stable focal infiltrate in the right lower lung. There is some focal consolidation in the left lung base as well. Otherwise, no significant changes compared to the prior study. - acapella - Repeat CXR in AM, consider repeat CT scan 08/28 depending on clinical status Steroid induced hyperglycemia DM - blood sugar noted to be elevated on BMP, likely steroid induces - will start accu checks ACHS low dose SSI coverage - Ha1c 7.7 - lungs improving - DC Solu-medrol, start prednisone 30 mg PO BID 08/27 - (08/27) start Levemir 10 units SQ QHS - continue to monitor blood sugar with decreased steroids, also continue SSI A. fib RVR- 08/26 now with RVR - In the ED pt was tachycardic and tachypneic in atrial fibrillation RVR with highest rates in the 130s - Cont. Cardizem 180mg po BID, increase atenolol to 50 mg PO BID. - dose of atenolol 50 mg PO now, decrease Lasix to 40 mg PO once a day - Hold Eliqucele, this was reportedly stopped at the rehab due to decrease in her H/H. May need to consider restarting as Hgb at admission is 10.5 and is fairly stable compared to labs during previous admission - Hgb 10.5 -> 9.6 (08/24) -> 9.7 (08/25) - Telemetry - (08/27) will give NS 50 ml/h for a total of 500ml HTN (hypertension) - Continued and Atenolol and Cardizem - Decreased hydralazine to 25 mg Q8H with parameters and stop Lisinopril to try to avoid hypotension during diuresis - Monitor BP Tremor - Home medications continued Dementia - Continue Donepezil 5 mg p.o. daily CKD, stage 3 - Labs at admission are stable - Monitor (2) Hypoxia ICD Codes: R09.02 - Hypoxemia Status: Acute (3) Right lower lobe pneumonia ICD Codes: J18.1 - Lobar pneumonia, unspecified organism Status: Chronic (4) Dementia ICD Codes: F03.90 - Unspecified dementia without behavioral disturbance Status: Chronic (5) Atrial fibrillation with RVR ICD Codes: I48.91 - Unspecified atrial fibrillation Status: Acute (6) HTN (hypertension) ICD Codes: I10 - Essential (primary) hypertension Status: Chronic (7) Tremor ICD Codes: R25.1 - Tremor Status: Chronic (8) Diabetes mellitus ICD Codes: E11.9 - Type 2 diabetes mellitus without complications Status: Chronic Assessment and Plan Patient examined. Assessment and plan formulated with Dennise Carlos PA-C. I agree with the above. after coughing, pt's lungs are clear to auscultation. Pt feels week and is having difficult clearing her secretions. Continue using acapella. I am requesting chest percussion by RT with duoneb treatments. Lasix decreased to 40mg PO daily. Creatinine increased to 1.93. will give 500mg IVF repeat BMP in AM obtain repeat CXR Dennise Carlos Aug 27, 2017 11:19 Charles Herman DO Aug 27, 2017 11:55
[2017-08-27] MEDS ORDERED: SODIUM CHLORID 0.9% 500 ML INJ 500 ML IV SCH (11:30)
--- NOTE | 2017-08-27 12:21 | RADRPT ---
EXAM DATE/TIME: 08/27/2017 12:06 [facility] COMPARISON: CHEST PA & LAT, August 25, 2017, 9:26. INDICATIONS : Persistant cough. MEDICAL HISTORY : Hypertension. Diabetes mellitus type II. SURGICAL HISTORY : None. ENCOUNTER: Initial ACUITY: 1 day PAIN SCORE: 0/10 LOCATION: Bilateral chest FINDINGS: AP and lateral views of the chest retained and demonstrate small bilateral pleural effusions with daren nting of the posterior costophrenic angles. These appear mildly improved. The heart size is mildly en larged with patchy opacity remaining in the left lung base. There is no perihilar edema. Atherosclero tic changes are present in the aorta. There are old bilateral humeral fractures. CONCLUSION: Mild improvement in bilateral effusions. Devin Gil MD on August 27, 2017 at 12:18 Board Certified Radiologist. This report was verified electronically.
--- NOTE | 2017-08-27 14:46 | EKG ---
Date Performed: 08/26/2017 Time Performed: 18:46:43 PTAGE: 87 years EKG: ATRIAL FIBRILLATION WITH RAPID VENTRICULAR RESPONSE ABNORMAL RHYTHM ECG Since PREVIOUS TRACING , no significant change noted PREVIOUS TRACIN08/23/2017 09.12 DOCTOR: Olvin Contreras Interpretating Date/Time 08/27/2017 14:44:21
[2017-08-27] MEDS: INSULIN DETEMIR 100 UNITS/ML VIAL SQ SCH (22:49)
[2017-08-27] MEDS: DONEPEZIL HCL 5 MG TAB PO SCH (22:52)
[2017-08-27] MEDS: MELATONIN 5 MG TAB PO PRN (23:12)
[2017-08-28] VITALS (8 sets, daily range): BP systolic 114–167; BP diastolic 56–70; PULSE 72–136; RESP 17–18; TEMP 97.3–98.2; O2SAT 93–95
[2017-08-28] MEDS: hydrALAZINE HCL 50 MG TAB PO SCH ×3 (05:56→22:48)
[2017-08-28] MEDS: INSULIN ASPART SUPPLEMENTAL SCALE SQ SCH ×4 (08:42→22:49)
[2017-08-28] MEDS: FUROSEMIDE 40 MG TAB PO SCH (08:47)
[2017-08-28] MEDS: PANTOPRAZOLE SOD 20 MG DELAYED RELEASE TAB PO SCH (08:47)
[2017-08-28] MEDS: PRIMIDONE 50 MG TAB PO SCH ×2 (08:47→22:47)
[2017-08-28] MEDS: POTASSIUM CHLORIDE 20 MEQ CONTROLLED RELEASE TAB PO SCH (08:47)
[2017-08-28] MEDS: PARoxetine HCL 20 MG TAB PO SCH (08:48)
[2017-08-28] MEDS: PRAVASTATIN SOD 20 MG TAB PO SCH (08:48)
[2017-08-28] MEDS: DILTIAZEM-CD 180 MG CAP ER PO SCH ×2 (08:48→22:47)
[2017-08-28] MEDS: SODIUM CHLORIDE 0.9% FLUSH 10 ML FLUSH IV FLUSH SCH ×2 (08:48→21:00)
[2017-08-28] MEDS: predniSONE 10 MG TAB PO SCH (08:48)
[2017-08-28] MEDS: ATENOLOL 50 MG TAB PO SCH ×2 (08:48→22:47)
[2017-08-28 09:46] LABS: BICARBONATE 32.8 MEQ/L (21.0-32.0); CALCIUM 7.9 MG/DL (8.5-10.1); CREATININE 1.54 MG/DL (0.50-1.00)
[2017-08-28] MEDS: RESP: ALBUTEROL 2.5 MG/IPRATROPIUM 0.5 MG NEB (SCH) NEB ×3 (09:48→20:51)
[2017-08-28] MEDS ORDERED: PRED10 PO (12:44)
[2017-08-28] MEDS ORDERED: ATEN50TA PO (12:44)
--- NOTE | 2017-08-28 12:46 | HHI.PR ---
Subjective Remarks Patient appears better today offers no specific complaints Objective Vitals Vital Signs Date Time Temp Pulse Resp B/P (MAP) Pulse Ox O2 Delivery O2 Flow Rate FiO2 08/28/17 12:00 97.9 72 18 144/56 (85) 93 08/28/17 11:20 95 Nasal Cannula 3.00 08/28/17 11:20 115 08/28/17 09:49 95 Nasal Cannula 3.00 08/28/17 08:00 97.3 86 18 167/70 (102) 95 08/28/17 05:18 97.6 94 17 150/70 (96) 93 08/28/17 00:16 97.7 80 17 139/70 (93) 95 08/27/17 20:00 97.7 90 20 128/58 (81) 97 08/27/17 19:45 97 Nasal Cannula 3.00 08/27/17 19:22 98 Nasal Cannula 3.00 Result Diagram: 08/25/17 0615 08/28/17 0835 Other Results Laboratory Tests Test 08/26/17 12:02 08/27/17 10:26 08/28/17 08:35 Hemoglobin A1c 7.7 % Blood Urea Nitrogen 49 MG/DL 50 MG/DL Creatinine 1.93 MG/DL 1.54 MG/DL Random Glucose 308 MG/DL 121 MG/DL Calcium Level 7.8 MG/DL 7.9 MG/DL Sodium Level 135 MEQ/L 138 MEQ/L Potassium Level 4.3 MEQ/L 4.4 MEQ/L Chloride Level 94 MEQ/L 97 MEQ/L Carbon Dioxide Level 28.8 MEQ/L 32.8 MEQ/L Anion Gap 12 MEQ/L 8 MEQ/L Estimat Glomerular Filtration Rate 25 ML/MIN 32 ML/MIN Imaging Last Impressions Chest X-Ray 08/23/17 0907 Signed Impressions: Service Date/Time: Wednesday, August 23, 2017 09:18 - CONCLUSION: 1. Cardiomegaly with basilar airspace disease. Differential diagnosis includes infection/aspiration and possibly mild edema. Rikki Hardin MD Chest CT 08/23/17 0000 Signed Impressions: Service Date/Time: Wednesday, August 23, 2017 11:00 - CONCLUSION: 1. Moderate pleural effusions with dependent consolidation and atelectasis in both lungs. More extensive airspace disease the right lung base extending into the right middle lobe most characteristic of pneumonia or aspiration. 2. Cardiomegaly with mild coronary calcifications. 3. Advanced arthropathy of the shoulders with chronic remodeling of the glenoid. Rikki Hardin MD Objective Remarks GENERAL: This is a well-nourished, well-developed patient, in no apparent distress. HEENT: Atraumatic. Normocephalic. No temporal or scalp tenderness. No scleral icterus. Airway patent. NECK: Trachea midline, supple, nontender. CARDIO: Irregularly irregular and tachycardic RESP: rhonchi which cleared with cough, CTA ABD: +BS, soft, non-tender, nondistended. EXT: no lower extremity edema NEURO: Awake and alert. Motor and sensory grossly within normal limits. Normal speech. Chronic tremor A/P Problem List: (1) Systolic CHF, acute on chronic ICD Codes: I50.23 - Acute on chronic systolic (congestive) heart failure Status: Acute Plan: Acute systolic CHF, volume overload Hypoxia Pleural effusions Hx of RLL pneumonia - Pt is an 87 y/o female with HTN, hyperlipidemia, diabetes, CKD, stage 3, and memory loss who was brought to the ER at [facility] [place] on 08/23/17 from a local rehab facility for increased O2 requirements. - Pt was previously hospitalized from 07/23/17 to 08/01/17 for RLL pneumonia. During that admission she required BiPAP for hypoxia and was treated with Solu-Medrol, Abx and Duoebs. She was treated with Zosyn and Zyvox during that admission and discharged on a Prednisone taper. Pt was also treated with IV Lasix and Aldactone as well. She improved clinically and was discharged to SNF. - She was brought back to the ED today with increased O2 demand. She has reportedly been coughing and had increased congestion worsening for the past week or so. She has been placed back on supplemental O2 for the last 2 days and her O2 requirements have reportedly been increasing. - Pt was given a dose of Vancomycin and Zosyn in the ED - Labs show normal white blood cell count but a significant shift towards neutrophils. - She was given DuoNeb treatment in the ED - CXR (08/23) -->Cardiomegaly with basilar airspace disease. - Noncontrasted CT Thorax (08/23) --> Moderate pleural effusions with dependent consolidation and atelectasis in both lungs, more extensive airspace disease the right lung base extending into the right middle lobe most characteristic of pneumonia or aspiration, cardiomegaly with mild coronary calcifications, and advanced arthropathy of the shoulders with chronic remodeling of the glenoid. - Pt was given a dose of IV Lasix given at admission - ST evaluation reported no S/S of aspiration with thin liquids and was recommended pureed diet. - Pt is requiring 4L NC - 2D echo (07/24/17) --> EF 30-35%. Decrease left ventricular systolic function. Moderate MR. PAP 26.2 mmHg - Pt is not on any diuretics as an outpt - given another one time dose of IV Lasix (08/23) evening - (08/24) labs reviewed BUN 35, creatinine 1.41, GFR 35 -> (08/25) BUN 32, creatinine 1.19, GFR 43 -> (08/27) BUN 49, creatinine 1.93, GFR 25 -> (08/28) BUN 50, creatinine 1.54, GFR 32 - (08/27) will give NS 50 ml/h for a total of 500ml, (08/28) HR improved lungs clear. Will give additional 500ml of NS at 50 ml/H - Repeat CXR (08/24) reveals: Stable mild infiltrate in the right lung base - (08/24) started Lasix 40 mg IV BID with potassium -> (08/26) change to Lasix 40 mg PO daily -> (08/28) decrease Lasix to 20 mg daily - Speech therapy recommending pureed food with nectar thickened liquids - Daily weight and I&Os - DVT prophylaxis with SCDs COPD exacerbation - patient is a former smoker with scattered wheezing - start solu medrol 60 mg IV Q12H - CXR (08/25) Stable focal infiltrate in the right lower lung. There is some focal consolidation in the left lung base as well. Otherwise, no significant changes compared to the prior study. - acapella - Repeat CXR (08/27) showed mild improvement in bilateral effusions Steroid induced hyperglycemia DM - blood sugar noted to be elevated on BMP, likely steroid induces - will start accu checks ACHS low dose SSI coverage - Ha1c 7.7 - lungs improving - DC Solu-medrol, start prednisone 30 mg PO BID 08/27 - (08/27) start Levemir 10 units SQ QHS - continue to monitor blood sugar with decreased steroids, also continue SSI A. fib RVR- 08/26 RVR -> 08/28 rate improving - In the ED pt was tachycardic and tachypneic in atrial fibrillation RVR with highest rates in the 130s - Cont. Cardizem 180mg po BID, increase atenolol to 50 mg PO BID. - dose of atenolol 50 mg PO now, decrease Lasix to 40 mg PO once a day - Hold Eliqucele, this was reportedly stopped at the rehab due to decrease in her H/H. May need to consider restarting as Hgb at admission is 10.5 and is fairly stable compared to labs during previous admission - Hgb 10.5 -> 9.6 (08/24) -> 9.7 (08/25) - Telemetry - (08/27) will give NS 50 ml/h for a total of 500ml HTN (hypertension) - Continued and Atenolol and Cardizem - Decreased hydralazine to 25 mg Q8H with parameters and stop Lisinopril to try to avoid hypotension during diuresis - Monitor BP Tremor - Home medications continued Dementia - Continue Donepezil 5 mg p.o. daily CKD, stage 3 - Labs at admission are stable - Monitor Patient improving plan to DC to SNF in AM (2) Hypoxia ICD Codes: R09.02 - Hypoxemia Status: Acute (3) Right lower lobe pneumonia ICD Codes: J18.1 - Lobar pneumonia, unspecified organism Status: Chronic (4) Dementia ICD Codes: F03.90 - Unspecified dementia without behavioral disturbance Status: Chronic (5) Atrial fibrillation with RVR ICD Codes: I48.91 - Unspecified atrial fibrillation Status: Acute (6) HTN (hypertension) ICD Codes: I10 - Essential (primary) hypertension Status: Chronic (7) Tremor ICD Codes: R25.1 - Tremor Status: Chronic (8) Diabetes mellitus ICD Codes: E11.9 - Type 2 diabetes mellitus without complications Status: Chronic Assessment and Plan Patient examined. Assessment and plan formulated with Dennise Carlos PA-C. I agree with the above. Pt's lungs much improved on PE. Lungs are nearly CTA with occasional rhonchi. Pt should continue acapella upon discharge. Pt has difficulty clearing secretions and is certainly at high risk for readmission. Case d/w pt's son, Damien, by phone. Pt/son want DNR. Pt/son decline palliative consult at this time. Discharge to SNF in AM 4/2. See discharge orders. Dennise Carlos Aug 28, 2017 12:46 Charles Herman DO Aug 28, 2017 14:01
[2017-08-28] MEDS ORDERED: FURO1TAB62 PO (12:50)
--- NOTE | 2017-08-28 12:55 | HHI.DS ---
Discharge Summary Admission Date Aug 23, 2017 at 10:39 Discharge Date: Aug 29, 2017 Admitting Diagnosis Healthcare associated PNA. Afib RVR, Hypoxic respiratory failure. (1) Systolic CHF, acute on chronic Diagnosis: Principal ICD Codes: I50.23 - Acute on chronic systolic (congestive) heart failure Status: Acute (2) Hypoxia Diagnosis: Principal ICD Codes: R09.02 - Hypoxemia Status: Acute (3) Right lower lobe pneumonia Diagnosis: Principal ICD Codes: J18.1 - Lobar pneumonia, unspecified organism Status: Chronic (4) Dementia Diagnosis: Secondary ICD Codes: F03.90 - Unspecified dementia without behavioral disturbance Status: Chronic (5) Atrial fibrillation with RVR Diagnosis: Secondary ICD Codes: I48.91 - Unspecified atrial fibrillation Status: Acute (6) HTN (hypertension) Diagnosis: Secondary ICD Codes: I10 - Essential (primary) hypertension Status: Chronic (7) Tremor Diagnosis: Secondary ICD Codes: R25.1 - Tremor Status: Chronic (8) Diabetes mellitus Diagnosis: Secondary ICD Codes: E11.9 - Type 2 diabetes mellitus without complications Status: Chronic Consultants none Procedures none Brief History Ms. Hernández is an 87 y/o female with HTN, hyperlipidemia, diabetes, CKD, stage 3, and memory loss who was brought to the ER at [facility] [place] [place] on 08/23/17 from a local rehab facility for increased O2 requirements. Pt was previously hospitalized from 07/23/17 to 08/01/17 for RLL pneumonia. During that admission she required BiPAP for hypoxia and was treated with Solu-Medrol, Abx and Duoebs. She was treated with Zosyn and Zyvox during that admission and discharged on a Prednisone taper She improved clinically and was discharged to SNF. She was brought back to the ED today with increased O2 demand. She has reportedly been coughing and had increased congestion worsening for the past week or so. She has been placed back on supplemental O2 for the last 2 days and her O2 requirements have reportedly been increasing. There were no reported fevers or history of aspiration according to the pts son. No chest pain or shortness of breath. CXR in the ED noted cardiomegaly with basilar airspace disease. CT Thorax in the ED noted moderate pleural effusions with dependent consolidation and atelectasis in both lungs, more extensive airspace disease the right lung base extending into the right middle lobe most characteristic of pneumonia or aspiration, cardiomegaly with mild coronary calcifications, and advanced arthropathy of the shoulders with chronic remodeling of the glenoid. Son who is present at the bedside for examination reports that the pt has no coughing or choking with eating. CBC/BMP: 08/25/17 0615 08/28/17 0835 Significant Findings Laboratory Tests Test 08/26/17 12:02 08/27/17 10:26 08/28/17 08:35 Hemoglobin A1c 7.7 % (4.3-6.0) Blood Urea Nitrogen 49 MG/DL (7-18) 50 MG/DL (7-18) Creatinine 1.93 MG/DL (0.50-1.00) 1.54 MG/DL (0.50-1.00) Random Glucose 308 MG/DL (74-106) 121 MG/DL (74-106) Calcium Level 7.8 MG/DL (8.5-10.1) 7.9 MG/DL (8.5-10.1) Sodium Level 135 MEQ/L (136-145) Chloride Level 94 MEQ/L (98-107) 97 MEQ/L (98-107) Estimat Glomerular Filtration Rate 25 ML/MIN (>89) 32 ML/MIN (>89) Carbon Dioxide Level 32.8 MEQ/L (21.0-32.0) Imaging Last Impressions Chest X-Ray 08/27/17 0000 Signed Impressions: Service Date/Time: Sunday, August 27, 2017 12:06 - CONCLUSION: Mild improvement in bilateral effusions. Devin Gil MD Chest CT 08/23/17 0000 Signed Impressions: Service Date/Time: Wednesday, August 23, 2017 11:00 - CONCLUSION: 1. Moderate pleural effusions with dependent consolidation and atelectasis in both lungs. More extensive airspace disease the right lung base extending into the right middle lobe most characteristic of pneumonia or aspiration. 2. Cardiomegaly with mild coronary calcifications. 3. Advanced arthropathy of the shoulders with chronic remodeling of the glenoid. Rikki Hardin MD PE at Discharge GENERAL: This is a well-nourished, well-developed patient, in no apparent distress. HEENT: Atraumatic. Normocephalic. No temporal or scalp tenderness. No scleral icterus. Airway patent. NECK: Trachea midline, supple, nontender. CARDIO: Irregularly irregular and tachycardic RESP: rhonchi which cleared with cough, CTA ABD: +BS, soft, non-tender, nondistended. EXT: no lower extremity edema NEURO: Awake and alert. Motor and sensory grossly within normal limits. Normal speech. Chronic tremor Hospital Course Acute systolic CHF, volume overload Hypoxia Pleural effusions Hx of RLL pneumonia - Pt is an 87 y/o female with HTN, hyperlipidemia, diabetes, CKD, stage 3, and memory loss who was brought to the ER at [facility] [place] [place] on 08/23/17 from a local rehab facility for increased O2 requirements. - Pt was previously hospitalized from 07/23/17 to 08/01/17 for RLL pneumonia. During that admission she required BiPAP for hypoxia and was treated with Solu-Medrol, Abx and Duoebs. She was treated with Zosyn and Zyvox during that admission and discharged on a Prednisone taper. Pt was also treated with IV Lasix and Aldactone as well. She improved clinically and was discharged to SNF. - She was brought back to the ED today with increased O2 demand. She has reportedly been coughing and had increased congestion worsening for the past week or so. She has been placed back on supplemental O2 for the last 2 days and her O2 requirements have reportedly been increasing. - Pt was given a dose of Vancomycin and Zosyn in the ED - Labs show normal white blood cell count but a significant shift towards neutrophils. - She was given DuoNeb treatment in the ED - CXR (08/23) -->Cardiomegaly with basilar airspace disease. - Noncontrasted CT Thorax (08/23) --> Moderate pleural effusions with dependent consolidation and atelectasis in both lungs, more extensive airspace disease the right lung base extending into the right middle lobe most characteristic of pneumonia or aspiration, cardiomegaly with mild coronary calcifications, and advanced arthropathy of the shoulders with chronic remodeling of the glenoid. - Pt was given a dose of IV Lasix given at admission - ST evaluation reported no S/S of aspiration with thin liquids and was recommended pureed diet. - Pt is requiring 4L NC - 2D echo (07/24/17) --> EF 30-35%. Decrease left ventricular systolic function. Moderate MR. PAP 26.2 mmHg - Pt is not on any diuretics as an outpt - given another one time dose of IV Lasix (08/23) evening - (08/24) labs reviewed BUN 35, creatinine 1.41, GFR 35 -> (08/25) BUN 32, creatinine 1.19, GFR 43 -> (08/27) BUN 49, creatinine 1.93, GFR 25 -> (08/28) BUN 50, creatinine 1.54, GFR 32 - (08/27) will give NS 50 ml/h for a total of 500ml, (08/28) HR improved lungs clear. Will give additional 500ml of NS at 50 ml/H - Repeat CXR (08/24) reveals: Stable mild infiltrate in the right lung base - (08/24) started Lasix 40 mg IV BID with potassium -> (08/26) change to Lasix 40 mg PO daily -> (08/28) decrease Lasix to 20 mg daily - Speech therapy recommending pureed food with nectar thickened liquids - Daily weight and I&Os - DVT prophylaxis with SCDs COPD exacerbation - patient is a former smoker with scattered wheezing - start solu medrol 60 mg IV Q12H - CXR (08/25) Stable focal infiltrate in the right lower lung. There is some focal consolidation in the left lung base as well. Otherwise, no significant changes compared to the prior study. - acapella - Repeat CXR (08/27) showed mild improvement in bilateral effusions Steroid induced hyperglycemia DM - blood sugar noted to be elevated on BMP, likely steroid induces - will start accu checks ACHS low dose SSI coverage - Ha1c 7.7 - lungs improving - DC Solu-medrol, start prednisone 30 mg PO BID 08/27 - (08/27) start Levemir 10 units SQ QHS - continue to monitor blood sugar with decreased steroids, also continue SSI A. fib RVR- 08/26 RVR -> 08/28 rate improving - In the ED pt was tachycardic and tachypneic in atrial fibrillation RVR with highest rates in the 130s - Cont. Cardizem 180mg po BID, increase atenolol to 50 mg PO BID. - dose of atenolol 50 mg PO now, decrease Lasix to 40 mg PO once a day - Hold Eliquis, this was reportedly stopped at the rehab due to decrease in her H/H. May need to consider restarting as Hgb at admission is 10.5 and is fairly stable compared to labs during previous admission - Hgb 10.5 -> 9.6 (08/24) -> 9.7 (08/25) - Telemetry - (08/27) will give NS 50 ml/h for a total of 500ml HTN (hypertension) - Continued and Atenolol and Cardizem - Decreased hydralazine to 25 mg Q8H with parameters and stop Lisinopril to try to avoid hypotension during diuresis - Monitor BP Tremor - Home medications continued Dementia - Continue Donepezil 5 mg p.o. daily CKD, stage 3 - Labs at admission are stable - Monitor Pt Condition on Discharge: Stable Discharge Disposition: Discharge to SNF Discharge Instructions DIET: Follow Instructions for: Heart Healthy Diet, Diabetic Diet Speech Therapy-Diet Recommends: Pureed, [place] Thickened Liquids Activities you can perform: Regular-No Restrictions Follow up Referrals: PCP Follow-up - [address] Martinez New Medications: Furosemide (Lasix) 20 Mg Tab 20 MG PO DAILY for fluid retention, #30 TAB 0 Refills Prednisone (Prednisone) 10 Mg Tab 10 MG PO DIRECTED for steroid taper, #21 TAB 0 Refills take 20 mg by mouth twice a day for three days, then take 20 mg by mouth once a day for three days, then take 10 mg by mouth once a day for three days, then stop Atenolol (Atenolol) 50 Mg Tab 50 MG PO BID for heart rate, #60 TAB 0 Refills Insulin Detemir Inj (Levemir Inj) 1,000 unit/ 10 ML Vial 7 UNITS SQ HS for blood glucose, #10 INJECTION 0 Refills Do not mix with any other Insulin. Continued Medications: Acetaminophen (Tylenol) 325 Mg Tab 650 MG PO Q4H PRN for PAIN, TAB 0 Refills Apixaban (Eliquis) 2.5 Mg Tab 2.5 MG PO BID for Blood Clot Prevention, #60 TAB 0 Refills Calcium Citrate/Vitamin D3 (Citracal-Vit D3 200 mg-250 Tab) 200 Mg Calcium-250 Unit Tablet 1 TAB PO BID for Nutritional Supplement Coenzyme Q10 (Ubidecarenone) (Co Q-10) 50 Mg-5 Unit Cap 1 TAB PO DAILY Diltiazem CD 24 HR (Cardizem CD 24 HR) 180 Mg Caper 180 MG PO BID for heart rate/ blood pressure, #30 CAP 0 Refills Donepezil (Donepezil) 5 Mg Tab 5 MG PO HS for Dementia, #30 TAB 0 Refills Hydralazine HCl (Hydralazine HCl) 50 Mg Tablet 50 MG PO Q8HR for blood pressure for 30 Days, EACH 0 Refills Insulin Aspart Inj (Novolog Inj) 1,000 Unit/10 Ml Vial 1-9 UNITS SQ ACHS for Blood Sugar Management, #10 ML 0 Refills Max dose at bedtime:( )units; sugars less than 70,(0)units; sugars 150-199,(1) unit; sugars 200-249,(3) units; sugars 250-299,(5) units; sugars 300-349,(7) units; sugars greater than 349,(9) units Lovastatin (Lovastatin) 20 Mg Tab 20 MG PO HS for Cholesterol Management, #30 TAB 0 Refills Melatonin (Melatonin) 3 Mg Tab 3 MG PO HS for Insomnia Omeprazole (Omeprazole) 20 Mg Tab 20 MG PO DAILY, #30 TAB 0 Refills Paroxetine (Paroxetine) 10 Mg Tab 10 MG PO HS, #30 TAB 0 Refills Primidone (Primidone) 50 Mg Tab 50 MG PO BID for Control Seizures, #60 TAB 0 Refills Discontinued Medications: Atenolol (Atenolol) 50 Mg Tab 50 MG PO DAILY for Blood Pressure Management, #30 TAB 0 Refills Lisinopril (Lisinopril) 20 Mg Tab 20 MG PO DAILY, #30 TAB 0 Refills Loperamide (Loperamide) 2 Mg Cap 2 MG PO Q4H PRN for DIARRHEA, #20 CAP 0 Refills One capsule after each loose stool. Not to exceed 8 capsules per day. Additional Information Patient examined. Assessment and plan formulated with Dennise Carlos PA-C. I agree with the above. Dennise Carlos Aug 28, 2017 12:55 Charles Herman DO Sep 01, 2017 11:39
[2017-08-28] MEDS ORDERED: SODIUM CHLORID 0.9% 500 ML INJ 500 ML IV SCH (13:00)
[2017-08-28] MEDS: predniSONE 20 MG TAB PO SCH (22:47)
[2017-08-28] MEDS: DONEPEZIL HCL 5 MG TAB PO SCH (22:47)
[2017-08-28] MEDS: INSULIN DETEMIR 100 UNITS/ML VIAL SQ SCH (22:49)
[2017-08-29 00:06] VITALS: BP 126/66; PULSE 98; RESP 18; TEMP 97.7; O2SAT 97
[2017-08-29 04:36] VITALS: BP 151/70; PULSE 107; RESP 18; TEMP 97.6; O2SAT 96
[2017-08-29] MEDS: hydrALAZINE HCL 50 MG TAB PO SCH (05:35)
[2017-08-29] MEDS: RESP: ALBUTEROL 2.5 MG/IPRATROPIUM 0.5 MG NEB (SCH) NEB ×2 (07:55→12:22)
[2017-08-29 08:00] VITALS: BP 120/56; PULSE 122; RESP 20; TEMP 97.8; O2SAT 95
[2017-08-29] MEDS: INSULIN ASPART SUPPLEMENTAL SCALE SQ SCH ×2 (08:00→13:27)
[2017-08-29 08:09] VITALS: O2SAT 97
[2017-08-29] MEDS ORDERED: LEVEMIR SQ (08:23)
[2017-08-29] MEDS: PARoxetine HCL 20 MG TAB PO SCH (08:57)
[2017-08-29] MEDS: PANTOPRAZOLE SOD 20 MG DELAYED RELEASE TAB PO SCH (08:58)
[2017-08-29] MEDS: DILTIAZEM-CD 180 MG CAP ER PO SCH (08:58)
[2017-08-29] MEDS: POTASSIUM CHLORIDE 20 MEQ CONTROLLED RELEASE TAB PO SCH (08:58)
[2017-08-29] MEDS: ATENOLOL 50 MG TAB PO SCH (08:58)
[2017-08-29] MEDS: predniSONE 20 MG TAB PO SCH (08:58)
[2017-08-29] MEDS: PRIMIDONE 50 MG TAB PO SCH (08:59)
[2017-08-29] MEDS: PRAVASTATIN SOD 20 MG TAB PO SCH (08:59)
[2017-08-29] MEDS ORDERED: FUROSEMIDE 20 MG TAB PO SCH (09:00)
[2017-08-29] MEDS: SODIUM CHLORIDE 0.9% FLUSH 10 ML FLUSH IV FLUSH SCH (09:02)
[2017-08-29 12:00] VITALS: BP 124/87; PULSE 99; RESP 18; TEMP 98.3; O2SAT 97
== END 2017-08-29 14:01 | DRG 291 ==
LOC: NEPC 08:59 → NEDA 10:39 → HOCB 14:50 → N05A 08-27 20:08
PROVIDERS: ADMIT Hospitalist; ATTEND Hospitalist
DX: I13.0 Hypertensive heart and chronic kidney disease with heart failure and stage 1 through stage 4 chronic kidney disease, or unspecified chronic kidney disease (principal); I50.23 Acute on chronic systolic (congestive) heart failure; J96.91 Respiratory failure, unspecified with hypoxia; J18.9 Pneumonia, unspecified organism; N18.3 Chronic kidney disease, stage 3 (moderate); J44.0 Chronic obstructive pulmonary disease with (acute) lower respiratory infection; F03.90 Unspecified dementia, unspecified severity, without behavioral disturbance, psychotic disturbance, mood disturbance, and anxiety; I42.9 Cardiomyopathy, unspecified; J44.1 Chronic obstructive pulmonary disease with (acute) exacerbation; I48.91 Unspecified atrial fibrillation; E11.9 Type 2 diabetes mellitus without complications; Z79.4 Long term (current) use of insulin; E78.5 Hyperlipidemia, unspecified; R25.1 Tremor, unspecified; Z79.02 Long term (current) use of antithrombotics/antiplatelets; Z66 Do not resuscitate; Z87.891 Personal history of nicotine dependence; Z85.828 Personal history of other malignant neoplasm of skin; Z96.653 Presence of artificial knee joint, bilateral
CPT/HCPCS: 71045; 71046; 71250; 80048; 80053; 81001; 82550; 82948; 83036; 83605; 83690; 83735; 84100; 84484; 85007; 85025; 85027; 85610; 85730; 87040; 93005; 94640; 94664; 94667; 94668; 96365; J1815; J1940; J2543; J2930; J3370; J7040; J7050; J7512